=== PATIENT | female | born 1970 | race Caucasian/White ===

== ENCOUNTER 2021-08-08 12:52 | Observation (INO) | payer OTHER, SELFPAY ==
[2021-08-08] VITALS (10 sets, daily range): BP systolic 139–175; BP diastolic 67–90; PULSE 58–116; RESP 14–22; TEMP 35.6–37.2; O2SAT 92–98; BMI 33.5
--- NOTE | ~2021-08-08 | XR_ITS ---
EXAMINATION: XR sinus min 3V EXAM DATE: 08/09/2021 15:32 INDICATION: Sinusitis TECHNIQUE: Frontal, Isabella's, lateral, submentovertex projections of the paranasal sinuses. There is no prior study for comparison. 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 The sinuses are well aerated, no evidence of air-fluid level on the submentovertex projections. Please note that mild mucoperiosteal t hickening can be inapparent by x-ray. IMPRESSION: Unremarkable sinuses. Reviewed, dictated and finalized at location A. DYEING MACHINE TENDER IMPRESSION: Unremarkable sinuses.
--- NOTE | ~2021-08-08 | NM_ITS ---
EXAMINATION: NM zeyad stress w perfusion EXAM DATE: 08/09/2021 15:31 INDICATION: Chest pain. Ischemic chest pain. TECHNIQUE: Rest images were obtained following intravenous administration of 11.7 mCi Tc99m tetrofosm in (Myoview). The patient was infused intravenously with Lexiscan (regadenoson). Then, 33 mCi Tc99m t etrofosmin (Myoview) was administered intravenously, and stress images were obtained. Data was recons tructed into short axis and horizontal and vertical long axis SPECT images. Gated SPECT images were a lso obtained. There is no prior study for comparison. FINDINGS: There is no reversible or fixed perfusion abnormality to suggest ischemia or infarction. Th ere is normal left ventricular wall motion. End diastolic volume: 75 mL. End-systolic volume: 24 mL. Left ventricular ejection fraction: 68%. IMPRESSION: 1. Normal myocardial perfusion at rest and during stress. 2. Left ventricular ejection fraction measuring 68%. Reviewed, dictated and finalized at location A. MANAGER
--- NOTE | ~2021-08-08 | CT_ITS ---
EXAMINATION: CT abdomen pelvis wo con DATE: 08/10/2021 13:11 INDICATION: Upper abdominal pain. Nausea and vomiting. TECHNIQUE: Computed tomography (CT) of the abdomen and pelvis was performed without intravenous contr ast. Automated exposure control and iterative reconstruction technique were employed. The dose-length product was 972.80 mGy-cm. COMPARISON: CT abdomen and pelvis 12/12/2017 FINDINGS: The visualized portions of the lung bases demonstrate mild atelectasis. A calcified right l talita nodule and calcified right hilar lymph nodes are consistent with old granulomatous disease. No pl eural effusion. The heart size is normal. There is a small pericardial effusion. There are coronary a rtery calcifications. There is diffuse hepatic steatosis. The gallbladder is normal. Calcifications i n the spleen are consistent with old granulomatous disease. The pancreas, adrenal glands, and kidneys are normal. There is diverticulosis of the colon without evidence of diverticulitis. There are no di lated loops of bowel. The appendix is normal. There are no pathologically enlarged lymph nodes. There is no free intraperitoneal fluid. There is a chronic compression fracture of T11. There are chronic bilateral L5 pars defects. There is 7 mm anterolisthesis of L5 on S1. There is mild lumbar spondylosi s. IMPRESSION: 1. Small pericardial effusion similar to the prior exam. 2. Diffuse hepatic steatosis. Reviewed, dictated and finalized at location A. KNITTING MACHINE OPERATOR
--- NOTE | ~2021-08-08 | XR_ITS ---
EXAMINATION: XR chest 2V DATE: 08/08/2021 13:25 INDICATION: Acute chest pain TECHNIQUE: PA and lateral views of the chest are obtained. COMPARISON: 06/01/2018 FINDINGS: The lungs are free of acute opacities. There is no pleural effusion or pneumothorax. The ca rdiomediastinal silhouette is normal. There is mild thoracic spondylosis. IMPRESSION: 1. No acute cardiopulmonary abnormality. Reviewed, dictated and finalized at location B. RVISOR PICKING CREW
--- NOTE | ~2021-08-08 | CT_ITS ---
EXAMINATION: CTA chest PE protocol EXAM DATE: 08/08/2021 16:06 INDICATION: Chest pain for one month, intermittent. Cough and congestion. TECHNIQUE: Spiral CTA of the chest (pulmonary arteries) was performed with 100 cc Omnipaque 350 intr avenous contrast injection. Images were acquired during the pulmonary arterial phase. Coronal maxi mum intensity projection 3D-reconstructions were created by the technologist on dedicated workstation . Axial, coronal and sagittal reformatted images were reviewed. The dose-length product (DLP) for t his examination was 450.26 mGy-cm. The exposure was tailored according to patient size (auto mA exp osure control), and iterative reconstruction (ASIR) was used as additional dose reduction technique. There is no prior study for comparison. FINDINGS: Pulmonary arteries are well opacified and without intraluminal filling defects. No thora cic aortic dissection. There is 4 mm right lower lobe nodule axial image 49. There is 5 mm right low er lobe nodule on image 63. Additional 3 mm right lower lobe nodule on image 79. There is mild emphysema. Small pericardial effusion. Tracheobronchial tree is patent. There is no mediastinal, hilar or axillary lymphadenopathy. There is no pneumothorax. Heart normal in size. There is moderate left anterior descending coronary arterial calcification, arterial sclerosis. The re is hepatic steatosis. There is thoracic spondylosis without osteoblastic or osteolytic lesions id entified. IMPRESSION: 1. Small right lower lobe noncalcified nodules likely granulomas but one-year follow-up noncontrast chest CT recommended. 2. Small pericardial effusion. 3. Mild emphysema. 4. Hepatic steatosis. 5. No pulmonary emboli. Reviewed, dictated and finalized at location A. RD KEEPER
--- NOTE | 2021-08-08 12:54 | ECG_ITS ---
Measurements Intervals [place] Rate: 105 P: 17 PA: 142 QRS: 6 QRSD: 84 T: 10 QT: 332 QTc: 440 Interpretive Statements SINUS TACHYCARDIA DIFFUSE ST & T-WAVE ABNORMALITY CONSIDER SUBENDOMYOCARDIAL ISCHEMIA ABNORMAL ECG NO PREVIOUS ECG AVAILABLE FOR COMPARISON Electronically Signed On 08-08-2021 14:22:05 TANK RIVETER by Melchor Walsh M.D.
--- NOTE | 2021-08-08 13:10 | ED.CHESTPAIN ---
HPI - Chest Pain General Chief Complaint: Chest Pain Stated Complaint: chest pain, back pain Time Seen by Provider: 08/08/21 13:10 Source: patient Mode of arrival: ambulatory Limitations: no limitations History of Present Illness HPI narrative: Patient is a 50-year-old female complain of chest pain, midsternal, 8 out of 10, tightness, nonradiating, intermittent, accompanied by shortness of breath started 1 month ago but worse the past few days and that is why she came in. Patient denies any abdominal pain, nausea, vomiting, diaphoresis, fever or chills. Related Data Home Medications Medication Instructions Recorded Confirmed albuterol sulfate 08/08/21 albuterol sulfate INHALATION 08/08/21 atorvastatin 08/08/21 duloxetine mg PO 08/08/21 duloxetine mg PO 08/08/21 losartan 08/08/21 08/08/21 nicotine See Rx Instructions .ROUTE .COMPLEX 08/08/21 omeprazole 08/08/21 trazodone 08/08/21 Allergies Allergy/AdvReac Type Severity Reaction Status Date / Time ibuprofen Allergy Mild Vomiting Verified 08/08/21 13:29 Review of Systems Review of Systems: All systems reviewed & are unremarkable except as noted in HPI and below Constitutional: Constitutional: Denies body ache(s), Denies chills, Denies excessive sweating, Denies fatigue, Denies fever(s), Denies headache(s), Denies lethargy, Denies malaise, Denies weakness and Denies weight loss Eyes: Eyes: Denies blurry vision, Denies change in vision and Denies loss of vision ENT: Denies dizziness, Denies ear discharge, Denies headache(s), Denies lip swelling, Denies epistaxis, Denies nasal congestion, Denies neck pain, Denies throat swelling and Denies tongue swelling Cardiovascular: Cardiovascular: Denies diaphoresis, Denies rapid heart rate, Denies edema, Denies irregular heart rhythm, Denies lightheadedness, Denies palpitations, Denies dyspnea and Denies dyspnea on exertion Respiratory: Respiratory: Denies chest congestion, Denies cough, Denies hemoptysis, Denies dyspnea and Denies dyspnea on exertion Gastrointestinal: Gastrointestinal: Denies abdominal pain, Denies melena, Denies hematochezia, Denies diarrhea, Denies nausea, Denies vomiting and Denies hematemesis Musculoskeletal: Musculoskeletal: Denies abnormal gait, Denies deformity, Denies joint swelling, Denies limited range of motion, Denies neck pain and Denies numbness Neurologic: Denies Abnormal speech present, Denies abnormal gait, Denies confusion, Denies dizziness, Denies headache(s), Denies focal weakness, Denies loss of vision, Denies numbness, Denies Other visual disturbances, Denies Sensory deficit (Neuro) and Denies weakness Psychiatric: Psychiatric: Denies confusion, Denies depression, Denies auditory hallucinations, Denies homicidal ideation and Denies suicidal ideation Endocrine: Endocrine: Denies cold intolerance, Denies excessive sweating, Denies fatigue, Denies heat intolerance and Denies palpitations Hematologic/Lymphatic: Hematologic/Lymphatic: Denies easy bleeding and Denies easy bruising Allergic/Immunologic: Allergic/Immunologic: Denies lip swelling, Denies throat swelling and Denies tongue swelling PMFSH Past Medical History Medical History Abnormal uterine bleeding Anemia Anxiety Arthritis Asthma Back pain Bronchitis COPD (chronic obstructive pulmonary disease) DDD (degenerative disc disease) 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
[2021-08-08 13:19] LABS: Basophils Absolute Auto 0.1 K/mm3 (0.0-0.1); Basophils Percent Auto 0.6 % (0.2-1.2); Eosinophils Absolute Auto 0.1 K/mm3 (0-0.3); Hematocrit 44.4 % (37.0-47.0); Hemoglobin 15.3 g/dL (12.0-15.0); Immature Granulocyte Absolute 0.03 K/mm3 (0.00-0.031); Immature Granulocyte Percent A 0.3 % (0-0.5); Lymphocytes Absolute Auto 3.09 K/mm3 (0.9-3.2); Lymphocytes Percent Auto 26.8 % (18.3-44.2); Mean Corpuscular HGB Conc 34.5 g/dl (32-36); Mean Corpuscular Hemoglobin 29.4 pg (26-34); Mean Corpuscular Volume 85.2 fl (80-100); Mean Platelet Volume 9.8 fl (7.4-10.4); Monocytes Absolute Auto 0.6 K/mm3 (0.1-0.6); Monocytes Percent Auto 4.8 % (2.6-8.5); Neutrophils Absolute Auto 7.7 K/mm3 (1.3-6.7); Neutrophils Percent Auto 66.5 % (45.5-73.1); Platelet Count Result 416 k/mm3 (150-375); Red Blood Count 5.21 M/mm3 (4.2-5.4); Red Cell Distribution Width 13.8 % (11.5-14.5); White Blood Count 11.6 K/mm3 (4.5-10.0)
[2021-08-08 13:32] LABS: Alanine Aminotransferase 12 U/L (4-35); Albumin Level 4.1 g/dL (3.5-5.1); Alkaline Phosphatase 66 U/L (38-126); Anion Gap 9 mmol/L (8-16); Aspartate Amino Transferase 23 U/L (14-36); Bilirubin,Total 0.6 mg/dL (0.2-1.3); Blood Urea Nitrogen 4 mg/dL (7-17); Calcium 8.6 mg/dL (8.4-10.2); Carbon Dioxide 28 mmol/L (22-30); Chloride 100 mmol/L (98-107); Estimated CRCL calculation 91 ml/min; Estimated Glomerular Filt Rate > 60; Glucose 121 mg/dL (65-110); Lipase 80 U/L (23-300); Potassium 2.6 mmol/L (3.4-5.0); Sodium 137 mmol/L (137-145)
[2021-08-08 13:35] LABS: Partial Thromboplastin Time 26.7 SECONDS (22.3-36.8)
[2021-08-08 13:36] LABS: Troponin I < 0.012 ng/mL (0.000-0.034)
[2021-08-08 13:40] LABS: Prothrombin Time 12.4 Seconds (11.1-14.7)
[2021-08-08] MEDS: POTASSIUM CHLORIDE 20 MEQ PACKET (FOR LIQUID) 40 MEQ PO ×3 (13:50→23:11)
[2021-08-08 14:05] LABS: D Dimer 0.33 ug/mL (<0.48)
[2021-08-08] MEDS: NITROGLYCERIN OINTMENT 1 INCH DOSE TRANSDERM (15:46)
[2021-08-08 16:20] LABS: Troponin I < 0.012 ng/mL (0.000-0.034)
[2021-08-08 16:35] LABS: SARS-CoV-2 RNA PCR Negative
--- NOTE | 2021-08-08 17:04 | ADMGEN ---
This patient, Purvi Villarreal, was admitted to IMU Room 206-01. Patient/family oriented to hospital policies and general routines including ID bracelet, bed and alarms, visiting hours, pain management, procedures, bathroom and other care routines, personal items, smoking policy, room service/diet, and visiting hours. Information on how to activate the Rapid Response Team has been discussed. Patient/Family are encouraged to report perceived risks to care and to ask questions if they do not understand what they are told or what they should do.
[2021-08-08 19:34] LABS: Troponin I < 0.012 ng/mL (0.000-0.034)
--- NOTE | 2021-08-08 20:01 | PM.IMHP ---
H&P: HPI History of Present Illness Date/Time: Patient was placed observation status for expected length of stay less than 23 hours for management, will plan to re-evaluate tomorrow for improvement. 08/08/21 20:01 Chief Complaint: Chest pain Narrative: Mr. Villarreal is a 48-year-old female who presented to the emergency room with complaints of chest discomfort for the last month. Patient has a known history of COPD, hypertension, and dyslipidemia. Patient states over the last month she has been having chest pressure in her mid sternal area that radiates straight through to her back and she complains of aching in her back. Patient states over the last 2 days the chest discomfort has worsened. Patient states that taking a deep breath makes the pain worse, and laying down makes the pain better. Patient states she has had nausea and vomiting over the last few days. Patient states that she recently was diagnosed with a sinus infection and upper respiratory infection and was given a Z-Herbert and she states there was no resolution of her infection so she was given a 2nd Z-Herbert. Patient states she quit smoking today after smoking approximately 2 packs of cigarettes for 20 years. Patient denies any lightheadedness, dizziness, syncopal, or near syncopal episodes. Patient states she has been taking all medications at home without any difficulty. Upon evaluation in emergency room patient was noted to have an initial troponin that was negative of less than 0.012. Patient was also noted to have hypokalemia with a potassium of 2.6. Patient's EKG did show diffuse ST depression. Patient's heart score came back at a 5 which is a moderate risk. Review of Systems Review of Systems: A 12 point review of systems was completed patient all pertinent positive and negative per HPI the remainder are unremarkable. 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 Depression Fractures lt 3rd finger, rt great toe GERD (gastroesophageal reflux disease) Hemorrhoids Hypertension Irritable bowel Osteoporosis Pneumonia Shingles Ulcer UTI (urinary tract infection) Surgical History Surgical History H/O: hysterectomy History of bunionectomy Family History Family History (Updated 08/08/21 @ 17:16 by Nando Be RN) Mother Breast cancer Father Hypertension Sibling Cardiomyopathy Sibling Brain aneurysm Social History Social History Smoking packs per day: 2 Smoking cigarettes per day: 40.0 Years smoked: 20 Smoking pack-years: 40.00 Smoking status: Current every day smoker Tobacco type: cigarettes Alcohol intake: never Substance use: never Spiritual care concerns: No Meds Home Medications and Allergies Home Medications Medication Instructions Recorded Confirmed Type albuterol sulfate 2 puff INHALATION PRN PRN 08/08/21 08/08/21 History albuterol sulfate 2.5 mg INHALATION TID PRN 08/08/21 08/08/21 History atorvastatin 20 mg PO DAILY 08/08/21 08/08/21 History duloxetine 30 mg PO DAILY 08/08/21 08/08/21 History duloxetine 60 mg PO DAILY 08/08/21 08/08/21 History losartan 100 mg PO DAILY 08/08/21 08/08/21 History nicotine 1 patch TRANSDERMAL DAILY 08/08/21 08/08/21 History omeprazole 40 mg PO BID 08/08/21 08/08/21 History trazodone 300 mg PO HS 08/08/21 08/08/21 History Allergies Allergy/AdvReac Type Severity Reaction Status Date / Time ibuprofen Allergy Mild Vomiting Verified 08/08/21 17:17 Vital Signs Vital Signs - 24 hr 08/08/21 12:57 08/08/21 13:29 08/08/21 13:50 Temperature 36.5 C 37.2 C Pulse Rate 116 H 91 97 Respiratory Rate 14 16 Blood Pressure 144/84 H 142/90 H Pul
[2021-08-08] MEDS: ACETAMINOPHEN 325 MG TABLET 650 MG PO (21:07)
[2021-08-08] MEDS: traZODone HCL 50 MG TABLET 300 MG PO (21:08)
[2021-08-08] MEDS: PANTOPRAZOLE 40 MG TABLET PO (21:08)
[2021-08-08] MEDS: ONDANSETRON INJ 4 MG/2 ML VIAL IV PUSH (22:01)
[2021-08-08] MEDS: POTASSIUM CHLORIDE INJ 40 MEQ in SODIUM CHLORIDE 0.9% IV 500 ML 130 MEQ IVPB (23:12)
[2021-08-09] VITALS (16 sets, daily range): BP systolic 115–154; BP diastolic 50–90; PULSE 59–101; RESP 16–18; TEMP 35.1–36.4; O2SAT 92–98
[2021-08-09 04:59] LABS: Basophils Absolute Auto 0.1 K/mm3 (0.0-0.1); Basophils Percent Auto 0.9 % (0.2-1.2); Eosinophils Absolute Auto 0.2 K/mm3 (0-0.3); Eosinophils Percent Auto 3.2 % (0-4.4); Hemoglobin 13.2 g/dL (12.0-15.0); Immature Granulocyte Absolute 0.01 K/mm3 (0.00-0.031); Immature Granulocyte Percent A 0.2 % (0-0.5); Lymphocytes Absolute Auto 3.11 K/mm3 (0.9-3.2); Mean Corpuscular HGB Conc 32.2 g/dl (32-36); Mean Corpuscular Hemoglobin 28.9 pg (26-34); Mean Corpuscular Volume 89.7 fl (80-100); Mean Platelet Volume 9.9 fl (7.4-10.4); Monocytes Absolute Auto 0.4 K/mm3 (0.1-0.6); Monocytes Percent Auto 7.2 % (2.6-8.5); Neutrophils Absolute Auto 2.1 K/mm3 (1.3-6.7); Neutrophils Percent Auto 35.5 % (45.5-73.1); Platelet Count Result 340 k/mm3 (150-375); Red Blood Count 4.57 M/mm3 (4.2-5.4); Red Cell Distribution Width 13.9 % (11.5-14.5); White Blood Count 5.9 K/mm3 (4.5-10.0)
[2021-08-09 05:09] LABS: Anion Gap 4 mmol/L (8-16); Blood Urea Nitrogen 3 mg/dL (7-17); Calcium 7.8 mg/dL (8.4-10.2); Carbon Dioxide 29 mmol/L (22-30); Chloride 106 mmol/L (98-107); Estimated CRCL calculation 81 ml/min; Estimated Glomerular Filt Rate > 60; Glucose 106 mg/dL (65-110); Potassium 3.4 mmol/L (3.4-5.0); Sodium 139 mmol/L (137-145)
[2021-08-09] MEDS: LOSARTAN POTASSIUM 100 MG TABLET PO (08:36)
[2021-08-09] MEDS: DULoxetine HCL 60 MG CAPSULE.DR PO (08:36)
[2021-08-09] MEDS: DULoxetine HCL 30 MG CAPSULE.DR PO (08:36)
[2021-08-09] MEDS: NICOTINE (*PBKC) 21 MG PATCH 1 PATCH TRANSDERM (08:36)
[2021-08-09] MEDS: ATORVASTATIN 20 MG TABLET PO (08:36)
[2021-08-09] MEDS: PANTOPRAZOLE 40 MG TABLET PO ×2 (08:36→20:11)
[2021-08-09] MEDS: ENOXAPARIN 40 MG/0.4 ML SYRINGE SUB-Q (08:37)
[2021-08-09] MEDS: ACETAMINOPHEN 325 MG TABLET 650 MG PO ×2 (08:38→15:38)
--- NOTE | 2021-08-09 10:05 | ECHO_ITS ---
Patient Info Name: Purvi Villarreal Age: 50 years : 1970 Gender: Female Ht: 62 in Wt: 182 lbs BSA: 1.94 m2 HR: 57 bpm BP: 154 / 70 mmHg Heart Rhythm: Sinus Rhythm Technical Quality: Fair Exam Date: 08/09/2021 11:27 AM Exam Location: [facility] Card Pulmonary Patient Status: Inpatient Admit Date: 08/08/2021 Staff Ordering Physician: Melchor Walsh MD Asphalt Paving Machine Operator: Kelsey Cartagena RDCS Attending Provider: Gopi Sanches MD Referring Physician: Jillian YOUSSEF; Exam Type: CA echo doppler color flow Study Info Indications - cp Complete two-dimensional, color flow and Doppler transthoracic echocardiogram is performed. Summary 1. Complete two-dimensional, color flow and Doppler transthoracic echocardiogram is performed. 2. Left ventricular chamber dimension is normal. 3. Left ventricular systolic function is normal, estimated at 65-70%. 4. There is mildly increased left ventricular wall thickness. 5. The left ventricular diastolic function is grade II diastolic dysfunction. 6. There is no aortic valve stenosis. 7. There is mild aortic valve regurgitation. 8. There is trace tricuspid valve regurgitation. 9. No pulmonary hypertension, estimated pulmonary arterial systolic pressure is 23 mmHg. 10. There is a small circumferential pericardial effusion with fibrinous material within the pericardial space. Left Ventricle Left ventricular chamber dimension is normal. Left ventricular systolic function is normal, estimated at 65-70%. There is mildly increased left ventricular wall thickness. The left ventricular diastolic function is grade II diastolic dysfunction. Right Ventricle Right ventricular chamber dimension is normal. Right ventricular systolic function is normal. Left Atria Left atrial chamber dimension is normal. Right Atria Right atrial chamber dimension is normal. Aortic Valve The aortic valve is trileaflet. There is no aortic valve stenosis. There is mild aortic valve regurgitation. Pulmonic Valve The pulmonic valve is not well visualized. Mitral Valve The mitral valve has thickened leaflets. There is trace mitral valve regurgitation. Tricuspid Valve The tricuspid valve leaflets are normal. There is trace tricuspid valve regurgitation. No pulmonary hypertension, estimated pulmonary arterial systolic pressure is 23 mmHg. Pericardium/Pleural The pericardium appears normal. There is a small circumferential pericardial effusion with fibrinous material within the pericardial space. Inferior Vena Cava Normal inferior vena cava with >50% collapse upon inspiration consistent with normal right atrial pressure, 5 mmHg. Aorta The aortic root size at the sinus of Valsalva is normal. There is mild aortic atherosclerosis. Left Ventricular Outflow Tract Name Value Normal LVOT 2D LVOT Diameter 2.0 cm LVOT Doppler LVOT Peak Gradient 4 mmHg LVOT Mean Gradient 2 mmHg LVOT VTI 21 cm LVOT VTI/AV VTI Ratio 0.6 LVOT Stroke Volume
--- NOTE | 2021-08-09 10:31 | ECG_ITS ---
Measurements Intervals [place] Rate: 60 P: 48 [place]: 160 QRS: 34 QRSD: 74 T: 43 QT: 415 QTc: 415 Interpretive Statements SINUS RHYTHM NONSPECIFIC ST-WAVE ABNORMALITY BASELINE ARTIFACT BORDERLINE ECG COMPARED TO ECG 08/08/2021 12:57:55 ST ABNORMALITY SLIGHTLY IMPROVED Electronically Signed On 08-09-2021 15:16:12 VIRTUALIZATION ARCHITECT by Melchor Walsh M.D.
--- NOTE | 2021-08-09 10:32 | PM.CNCAR ---
Assessment and Plan Assessment and plan (1) Chest pain: Qualifiers: Chest pain type: unspecified Qualified Code(s): R07.9 - Chest pain, unspecified Code(s): R07.9 - Chest pain, unspecified Status: Acute Assessment and Plan: Patient reports a 1 month history of constant central chest achiness and tightness radiating to her back, waxing and waning in intensity for least 1 month which began after sinus infection with postnasal drip and frequent coughing. Chest pain is atypical, reproducible chest pain to palpation worse with deep breathing, coughing and improved lying still. Ruled out for myocardial infarction with negative serial cardiac enzymes. No history of known CAD. Risk factors include hypertension, tobacco abuse, hyperlipidemia. Clinically, chest pain most consistent with musculoskeletal etiology. Patient reports intolerance to NSAIDs. Will obtain 2D echocardiogram to assess pericardium, LV size/function, wall motion abnormalities, valve pathology and pulmonary pressures. Is significant abnormality identified further workup if clinically appropriate. I would like to clarify pericardial pathology by echocardiogram as soon as possible prior to subjecting patient to stress test. Chest pain is improved with Cymbalta and Tylenol. Patient thinks perhaps nitroglycerin paste helped as well but symptoms are largely unchanged and she admits. However, CT angiogram of the chest also reveals calcification coronary arteries. -Tylenol for pain. -Lexiscan nuclear stress test will be pursued later today if possible if echocardiogram without significant pericardial pathology. Lexiscan may be pursued as outpatient as well depending on patient's clinical course. Keep patient NPO for now. -Repeat 12 lead EKG. Recommendation to follow. (2) Abnormal EKG: Code(s): R94.31 - Abnormal electrocardiogram [ECG] [EKG] Status: Acute Assessment and Plan: Diffuse mild ST depressions fairly similar to prior EKGs dating back to 2019. (3) URI (upper respiratory infection): Qualifiers: URI type: unspecified viral URI Qualified Code(s): J06.9 - Acute upper respiratory infection, unspecified Code(s): J06.9 - Acute upper respiratory infection, unspecified Status: Acute Assessment and Plan: Per primary service. Bronchodilator therapy, PPI, antibiotics as warranted. CT angio of the chest negative for PE, aortic dissection, pneumothorax (4) Acute hypokalemia: Code(s): E87.6 - Hypokalemia Status: Acute Assessment and Plan: Severe hypokalemia initially 2.6 now replete to 3.4. Give additional 40 mEq p.o.. Patient admits to frequent loose stools over the past couple weeks which may be contributing. (5) Hypertension: Qualifiers: Hypertension type: primary hypertension Qualified Code(s): I10 - Essential (primary) hypertension Code(s): I10 - Essential (primary) hypertension Status: Acute Assessment and Plan: BP not ideally controlled but fair. Continue home antihypertensives. (6) Tobacco abuse: Code(s): Z72.0 - Tobacco use Status: Acute Assessment and Plan: Smoking cessation counseling performed. Nicotine patch. History of Present Illness History of Present Illness Consult date/time: Date of service: 08/09/21 10:32 Cardiology consultation at the request of Dr. Gomez for the emergency department for our opinion regarding complaints of chest pain. Requesting physician: James Gomez MD Consult reason: chest pain Reason For Visit: Chest pain, hypokalemia Narrative: Patient is a pleasant 50 year old female with past medical history significant for tobacco abuse 2 packs daily for the past 20 years, COPD, hypertension, hyperlipidemia who presents to the emergency department complaints of over 1 month constant chest pain described as an achy and tightness sensation in the center lower chest radiating to h
--- NOTE | 2021-08-09 11:49 | EST_ITS ---
Patient Info Name: Purvi Villarreal Age: 50 years : 1970 Gender: Female Ht: 62 in Wt: 185 lbs BSA: 1.95 m2 HR: 74 bpm BP: 159 / 83 mmHg Heart Rhythm: Sinus Rhythm Exam Date: 08/09/2021 2:32 PM Exam Location: [facility] Stress Patient Status: Inpatient Admit Date: 08/08/2021 Staff Ordering Physician: Boris Chan Attending Provider: Gopi Sanches MD Exercise Technologist: Analisa Branch CT Nurse: BORIS CHAN Exam Type: CA stress zeyad w NM Study Info Indications R07.9 - Chest pain, unspecified A regadenoson stress test was performed. Summary 1. With Lexiscan administration, 1 mm or greater horizontal or downsloping ST segment depression in leads II, III, aVF, V3-V6 consistent with myocardial ischemia. 2. No arrhythmias were observed during the examination. 3. Please correlate with nuclear medicine images, reported separately. 4. Chest discomfort with stress test, probably non-cardiac. Protocol: Lexiscan Stress ECG Details Stage: REST Duration (min): 1 min : 2 sec HR (bpm): 73 SBP (mmHg): 159 DBP (mmHg): 83 Stage: REST Duration (min): 6 min : 38 sec HR (bpm): 78 SBP (mmHg): 159 DBP (mmHg): 83 Stage: STAGE 1 Duration (min): 0 min : 59 sec HR (bpm): 116 SBP (mmHg): 159 DBP (mmHg): 99 Stage: RECOVERY Duration (min): 1 min : 0 sec HR (bpm): 129 SBP (mmHg): 159 DBP (mmHg): 99 Stage: RECOVERY Duration (min): 2 min : 0 sec HR (bpm): 117 SBP (mmHg): 159 DBP (mmHg): 99 Stage: RECOVERY Duration (min): 3 min : 0 sec HR (bpm): 102 SBP (mmHg): 175 DBP (mmHg): 95 Stage: RECOVERY Duration (min): 4 min : 0 sec HR (bpm): 100 SBP (mmHg): 175 DBP (mmHg): 95 Stage: RECOVERY Duration (min): 4 min : 53 sec HR (bpm): 90 SBP (mmHg): 165 DBP (mmHg): 92 Rest HR: 78 bpm Peak HR: 129 bpm Rest Sys BP: 159 mmHg Peak Sys BP: 175 mmHg Max Pred HR: 168 bpm % Max Pred HR: 77 % Target HR: 143 bpm Max RPP: 22,575 bpm*mmHg Termination Reason: Completed protocol Cardiac Symptoms: Chest pain, Shortness of breath Total Time: 1 min : 0 sec Rest Bunyd BP: 83 mmHg Peak Bundy BP: 95 mmHg Total Dose: 0.4 mg Resting ECG Normal sinus rhythm. Nonspecific ST and T-wave abnormality. Stress ECG With Lexiscan administration, 1 mm or greater horizontal or downsloping ST segment depression in leads II, III, aVF, V3-V6 consistent with myocardial ischemia. Arrhythmias No arrhythmias were observed during the examination. Report Signatures
--- NOTE | 2021-08-09 11:51 | PM.IMPN ---
Progress Note: A&P Assessment and Plan (1) Chest pain: Qualifiers: Chest pain type: unspecified Qualified Code(s): R07.9 - Chest pain, unspecified Code(s): R07.9 - Chest pain, unspecified Status: Acute Assessment and Plan: Heart score of 5 with moderate risk however clinical history not suggestive of cardiac chest pain EKG does show ST-T depressions in the lateral leads noted. This morning EKG with resolution of those depressions noted Severely hypokalemic on admission Troponin was negative on arrival and serial troponins were negative. Cardiology has been consulted is planning for echocardiogram followed by a stress test No prior history of coronary artery disease Chest x-ray with no acute cardiopulmonary disease CTA negative for PE. Small right lower lobe noncalcified nodules likely granulomas but one-year follow-up noncontrast chest CT recommended. (2) Acute hypokalemia: Code(s): E87.6 - Hypokalemia Status: Acute Assessment and Plan: Replaced. Check magnesium (3) Tobacco abuse: Code(s): Z72.0 - Tobacco use Status: Acute Assessment and Plan: Patient states she did quit smoking today after smoking approximately 2 packs of cigarettes a day for last [address] a nicotine patch on patient and continue to encourage smoking cessation. (4) Lung nodule: Code(s): R91.1 - Solitary pulmonary nodule Status: Acute Assessment and Plan: Small right lower lobe noncalcified nodule likely granuloma. Need follow-up noncontrast chest CT in 1 year. (5) Hypertension: Qualifiers: Hypertension type: primary hypertension Qualified Code(s): I10 - Essential (primary) hypertension Code(s): I10 - Essential (primary) hypertension Status: Acute Assessment and Plan: Not on any medications at home. Continue to monitor Will follow the trend. May need to add antihypertensive (6) Acute rhinosinusitis: Code(s): J01.90 - Acute sinusitis, unspecified Status: Acute Assessment and Plan: With persistent symptoms with postnasal drip. Received 2 rounds of antibiotics. Add Flonase nasal spray Does have underlying history of asthma but not any maintenance steroid inhaler. Start Symbicort 2 puffs twice daily Will also check sinus x-rays if persistent sinus fluid may and/or prednisone course Subjective Date/time seen: 08/09/21 11:51 Interval history: HPI: Mr. Villarreal is a 48-year-old female who presented to the emergency room with complaints of chest discomfort for the last month. Patient has a known history of COPD, hypertension, and dyslipidemia. Patient states over the last month she has been having chest pressure in her mid sternal area that radiates straight through to her back and she complains of aching in her back. Patient states over the last 2 days the chest discomfort has worsened. Patient states that taking a deep breath makes the pain worse, and laying down makes the pain better. Patient states she has had nausea and vomiting over the last few days. Patient states that she recently was diagnosed with a sinus infection and upper respiratory infection and was given a Z-Herbert and she states there was no resolution of her infection so she was given a 2nd Z-Herbert. Patient states she quit smoking today after smoking approximately 2 packs of cigarettes for 20 years. Patient denies any lightheadedness, dizziness, syncopal, or near syncopal episodes. Patient states she has been taking all medications at home without any difficulty. Upon evaluation in emergency room patient was noted to have an initial troponin that was negative of less than 0.012. Patient was also noted to have hypokalemia with a potassium of 2.6. Patient's EKG did show diffuse ST depression. Patient's heart score came back at a 5 which is a moderate risk. 08/09/2021 she reports her chest pain is diffusely present in her lower chest. She also f
[2021-08-09 12:10] LABS: Magnesium 1.1 mg/dL (1.6-2.3)
[2021-08-09] MEDS: MAGNESIUM SULF 2 GM/WATER 50ML 2 GM/50 ML BAG IVPB (15:41)
[2021-08-09] MEDS: POTASSIUM CHLORIDE 20 MEQ TABLET 40 MEQ PO (15:42)
[2021-08-09] MEDS: FLUTICASONE PROPIONATE 0.05% NA SPR 16 GM BTL (*BKC) 1 SPRAY NASAL (20:11)
[2021-08-09] MEDS: traZODone HCL 50 MG TABLET 300 MG PO (20:11)
[2021-08-09] MEDS: FLUTICASONE/SALMETEROL 115-21 MCG INHALER 1 PUFF 2 PUFF INHALATION (20:25)
[2021-08-10] VITALS (10 sets, daily range): BP systolic 115–143; BP diastolic 54–95; PULSE 62–84; RESP 16–18; TEMP 36.2–36.6; O2SAT 95–97
[2021-08-10] MEDS: FLUTICASONE/SALMETEROL 115-21 MCG INHALER 1 PUFF 2 PUFF INHALATION ×2 (08:01→20:00)
[2021-08-10] MEDS: ENOXAPARIN 40 MG/0.4 ML SYRINGE SUB-Q (08:27)
[2021-08-10] MEDS: PANTOPRAZOLE 40 MG TABLET PO ×2 (08:28→20:24)
[2021-08-10] MEDS: LOSARTAN POTASSIUM 100 MG TABLET PO (08:28)
[2021-08-10] MEDS: DULoxetine HCL 30 MG CAPSULE.DR PO (08:28)
[2021-08-10] MEDS: DULoxetine HCL 60 MG CAPSULE.DR PO (08:28)
[2021-08-10] MEDS: ATORVASTATIN 20 MG TABLET PO (08:28)
[2021-08-10] MEDS: NICOTINE (*PBKC) 21 MG PATCH 1 PATCH TRANSDERM (08:29)
--- NOTE | 2021-08-10 10:44 | PM.IMPN ---
Progress Note: A&P Assessment and Plan (1) Chest pain: Qualifiers: Chest pain type: unspecified Qualified Code(s): R07.9 - Chest pain, unspecified Code(s): R07.9 - Chest pain, unspecified Status: Acute Assessment and Plan: Heart score of 5 with moderate risk however clinical history not suggestive of cardiac chest pain EKG does show ST-T depressions in the lateral leads noted. This morning EKG with resolution of those depressions noted Severely hypokalemic on admission Troponin was negative on arrival and serial troponins were negative. Cardiology has been consulted No prior history of coronary artery disease Chest x-ray with no acute cardiopulmonary disease CTA negative for PE. Small right lower lobe noncalcified nodules likely granulomas but one-year follow-up noncontrast chest CT recommended. ECHO: EF 65-70% mildly increased left ventricular wall thickness grade 2 diastolic dysfunction no aortic valve stenosis mild aortic valve regurgitation trace tricuspid valve regurgitation no pulmonary hypertension small circumferential pericardial effusion with fibrinous material within the pericardial space Stress test 08/10/2019 to no reversible or fixed perfusion abnormality to suggest ischemia or infarction. Normal left ventricular wall motion. Ejection fraction 68% (2) Acute hypokalemia: Code(s): E87.6 - Hypokalemia Status: Acute Assessment and Plan: Replaced. magnesium low which was replaced recheck again and monitor (3) Tobacco abuse: Code(s): Z72.0 - Tobacco use Status: Acute Assessment and Plan: Patient states she did quit smoking today after smoking approximately 2 packs of cigarettes a day for last [address] a nicotine patch on patient and continue to encourage smoking cessation. (4) Lung nodule: Code(s): R91.1 - Solitary pulmonary nodule Status: Acute Assessment and Plan: Small right lower lobe noncalcified nodule likely granuloma. Need follow-up noncontrast chest CT in 1 year. (5) Hypertension: Qualifiers: Hypertension type: primary hypertension Qualified Code(s): I10 - Essential (primary) hypertension Code(s): I10 - Essential (primary) hypertension Status: Acute Assessment and Plan: Not on any medications at home. Continue to monitor Will follow the trend. May need to add antihypertensive (6) Acute rhinosinusitis: Code(s): J01.90 - Acute sinusitis, unspecified Status: Acute Assessment and Plan: With persistent symptoms with postnasal drip. Received 2 rounds of antibiotics. Add Flonase nasal spray Does have underlying history of asthma but not any maintenance steroid inhaler. Start Symbicort 2 puffs twice daily x-rays sinus negative for sinusitis (7) Pericardial effusion: Code(s): I31.3 - Pericardial effusion (noninflammatory) Status: Acute Assessment and Plan: Small pericardial effusion. Could be from recent likely viral sinusitis. Symptomatic management (8) Coronary artery calcification: Code(s): I25.10 - Atherosclerotic heart disease of [place] coronary artery without angina pectoris; I25.84 - Coronary atherosclerosis due to calcified coronary lesion Status: Acute Assessment and Plan: CT evidence. Stress test negative. Aspirin 81 and atorvastatin (9) Abdominal pain: Code(s): R10.9 - Unspecified abdominal pain Status: Acute Assessment and Plan: Still persistent pain. Associated with nausea. No diarrhea reported. Will further evaluate with CT abdomen and pelvis without contrast. Subjective Date/time seen: 08/10/21 10:44 Interval history: HPI: Mr. Villarreal is a 48-year-old female who presented to the emergency room with complaints of chest discomfort for the last month. Patient has a known history of COPD, hypertension, and dyslipidemia. Patient states over the last month she has been having christine
--- NOTE | 2021-08-10 11:07 | PM.PNCARD ---
Progress Note: A&P Assessment and Plan (1) Chest pain: Qualifiers: Chest pain type: unspecified Qualified Code(s): R07.9 - Chest pain, unspecified Code(s): R07.9 - Chest pain, unspecified Status: Acute Assessment and Plan: Appears to be chest wall pain. Treat with Tylenol or Aleve p.r.n. (patient says she has tolerated Aleve in the past). OK for discharge from my point of view. (2) Coronary artery calcification: Code(s): I25.10 - Atherosclerotic heart disease of [place] coronary artery without angina pectoris; I25.84 - Coronary atherosclerosis due to calcified coronary lesion Status: Acute Assessment and Plan: CT scan shows moderate coronary calcifications so she does have early CAD even though her stress test did not show any flow-limiting lesions. I recommend continuing atorvastatin and add aspirin 81 mg daily. Continue primary prevention (3) Acute hypokalemia: Code(s): E87.6 - Hypokalemia Status: Acute Assessment and Plan: Improved, may be related to the patient's nausea and vomiting as well as omeprazole. (4) Hypermagnesemia: Code(s): E83.41 - Hypermagnesemia Status: Acute Assessment and Plan: May be related to the patient's nausea and vomiting as well as the omeprazole (5) Abnormal EKG: Code(s): R94.31 - Abnormal electrocardiogram [ECG] [EKG] Status: Acute Assessment and Plan: EKG changes have resolved. May have been secondary to electrolyte imbalance. Troponins all negative. Lexiscan does not suggest flow limiting CAD. (6) Pericardial effusion: Code(s): I31.3 - Pericardial effusion (noninflammatory) Status: Acute Assessment and Plan: Does have a small pericardial effusion on CT scan and echo. However her symptoms are not entirely consistent with pericarditis, she does not have a rub, and her EKG changes are not consistent with pericarditis. No history of connective tissue disease, thyroid disease or malignancy. No viral infection other than her sinusitis. Would not treat at this time since I doubt this is acute pericarditis, and tx (w/ NSAIA or colchicine) is likely to cause more GI sx. (7) Nausea: Code(s): R11.0 - Nausea Status: Acute Assessment and Plan: Patient thinks this is due to her antibiotics. (8) Hypertension: Qualifiers: Hypertension type: primary hypertension Qualified Code(s): I10 - Essential (primary) hypertension Code(s): I10 - Essential (primary) hypertension Status: Acute Assessment and Plan: Blood pressure running somewhat high, follow-up with her primary care doctor. (9) Tobacco abuse: Code(s): Z72.0 - Tobacco use Status: Acute Assessment and Plan: Patient has quit smoking. Reviewed CT scan finding of nodules and recommendation for follow-up to rule out growth/cancer. Subjective Date/time seen: 08/10/21 11:07 Interval history: Atypical chest pain Date of service 08/10/2021: Patient relates that she had nausea and vomiting prior to admission probably secondary to antibiotics which may have strained her chest. Still has some nausea and feels ?blah. ? Chest still feels heavy, worse with inspiration and coughing, nonpositional. Review of Systems Constitutional: Constitutional: Reports lethargy Eyes: Eyes: Reports no additional eye complaints ENT: Denies nasal congestion Cardiovascular: Cardiovascular: Reports chest pain, Denies leg edema and Denies palpitations Respiratory: Respiratory: Denies dyspnea and Denies dyspnea on exertion Gastrointestinal: Gastrointestinal: Reports bloating and Reports nausea Comments: History of GERD, omeprazole just increased from 20 mg b.i.d. to 40 mg b.i.d. Genitourinary: Genitourinary: Denies hematuria Musculoskeletal: Musculoskeletal: Reports no additional musculoskeletal complaints Integumentary/Breasts: Skin/Breast: Denies rash Neurologic
--- NOTE | 2021-08-10 11:08 | PC.NURSE ---
SBAR faxed to receiving unit at 1104. Patient to be moved to room 348.
--- NOTE | 2021-08-10 11:40 | PC.NURSE ---
Report given to ELÍAS Palm at 1136. All questions answered and plan of care reviewed. Patient to go to 3 medical room 348.
[2021-08-10 12:29] LABS: Basophils Absolute Auto 0.1 K/mm3 (0.0-0.1); Basophils Percent Auto 0.5 % (0.2-1.2); Eosinophils Absolute Auto 0.1 K/mm3 (0-0.3); Hematocrit 41.5 % (37.0-47.0); Hemoglobin 13.6 g/dL (12.0-15.0); Immature Granulocyte Absolute 0.02 K/mm3 (0.00-0.031); Immature Granulocyte Percent A 0.2 % (0-0.5); Lymphocytes Absolute Auto 2.32 K/mm3 (0.9-3.2); Lymphocytes Percent Auto 23.6 % (18.3-44.2); Mean Corpuscular HGB Conc 32.8 g/dl (32-36); Mean Corpuscular Hemoglobin 29.1 pg (26-34); Mean Corpuscular Volume 88.7 fl (80-100); Mean Platelet Volume 9.9 fl (7.4-10.4); Monocytes Absolute Auto 0.5 K/mm3 (0.1-0.6); Monocytes Percent Auto 4.6 % (2.6-8.5); Neutrophils Absolute Auto 6.9 K/mm3 (1.3-6.7); Neutrophils Percent Auto 70.1 % (45.5-73.1); Platelet Count Result 345 k/mm3 (150-375); Red Blood Count 4.68 M/mm3 (4.2-5.4); Red Cell Distribution Width 14.1 % (11.5-14.5); White Blood Count 9.9 K/mm3 (4.5-10.0)
[2021-08-10 12:37] LABS: Alanine Aminotransferase 11 U/L (4-35); Albumin Level 3.5 g/dL (3.5-5.1); Alkaline Phosphatase 60 U/L (38-126); Anion Gap 3 mmol/L (8-16); Aspartate Amino Transferase 19 U/L (14-36); Bilirubin,Total 0.1 mg/dL (0.2-1.3); Blood Urea Nitrogen 5 mg/dL (7-17); Calcium 8.9 mg/dL (8.4-10.2); Carbon Dioxide 29 mmol/L (22-30); Chloride 103 mmol/L (98-107); Estimated CRCL calculation 94 ml/min; Estimated Glomerular Filt Rate > 60; Glucose 111 mg/dL (65-110); Magnesium 1.4 mg/dL (1.6-2.3); Potassium 3.3 mmol/L (3.4-5.0); Sodium 135 mmol/L (137-145)
--- NOTE | 2021-08-10 12:45 | PC.NURSE ---
This patient, Purvi Villarreal, was received from IMU on 08/10/21 at 1215. Patient/family oriented to unit policies and routines. Report received from ELAÍS Márquez.
[2021-08-10] MEDS: POTASSIUM CHLORIDE 20 MEQ TABLET 40 MEQ PO (14:11)
[2021-08-10] MEDS: MAGNESIUM SULF 2 GM/WATER 50ML 2 GM/50 ML BAG IVPB (14:11)
[2021-08-10] MEDS: ACETAMINOPHEN 325 MG TABLET 650 MG PO ×2 (15:15→21:23)
[2021-08-10] MEDS: traZODone HCL 50 MG TABLET 300 MG PO (20:24)
[2021-08-10] MEDS: FLUTICASONE PROPIONATE 0.05% NA SPR 16 GM BTL (*BKC) 1 SPRAY NASAL (20:24)
--- NOTE | 2021-08-11 03:24 | PC.NURSE ---
Daylight Savings Time For Daylight Savings Time Ending in the Fall - Clocks are moved back. For Daylight Savings Time Beginning in the Spring - Clocks are moved ahead. For [facility], the time of change occurs at 0200 hrs. Time is taken from the sql server bi developer. This entry on the patient's chart recognizes the change in time reflected during documentation. Example: 2 entries for vital signs may be charted for 0200 hrs.
[2021-08-11 05:57] LABS: Basophils Absolute Auto 0.1 K/mm3 (0.0-0.1); Basophils Percent Auto 0.6 % (0.2-1.2); Eosinophils Absolute Auto 0.2 K/mm3 (0-0.3); Eosinophils Percent Auto 2.5 % (0-4.4); Hematocrit 38.6 % (37.0-47.0); Hemoglobin 12.8 g/dL (12.0-15.0); Immature Granulocyte Absolute 0.02 K/mm3 (0.00-0.031); Immature Granulocyte Percent A 0.3 % (0-0.5); Lymphocytes Absolute Auto 2.66 K/mm3 (0.9-3.2); Lymphocytes Percent Auto 33.5 % (18.3-44.2); Mean Corpuscular HGB Conc 33.2 g/dl (32-36); Mean Corpuscular Hemoglobin 29.2 pg (26-34); Mean Corpuscular Volume 87.9 fl (80-100); Mean Platelet Volume 9.8 fl (7.4-10.4); Monocytes Absolute Auto 0.5 K/mm3 (0.1-0.6); Monocytes Percent Auto 5.9 % (2.6-8.5); Neutrophils Absolute Auto 4.6 K/mm3 (1.3-6.7); Neutrophils Percent Auto 57.2 % (45.5-73.1); Platelet Count Result 313 k/mm3 (150-375); Red Blood Count 4.39 M/mm3 (4.2-5.4); Red Cell Distribution Width 14.2 % (11.5-14.5)
[2021-08-11 06:08] LABS: Alanine Aminotransferase 9 U/L (4-35); Albumin Level 3.3 g/dL (3.5-5.1); Alkaline Phosphatase 57 U/L (38-126); Anion Gap 5 mmol/L (8-16); Aspartate Amino Transferase 17 U/L (14-36); Bilirubin,Total 0.2 mg/dL (0.2-1.3); Blood Urea Nitrogen 6 mg/dL (7-17); Calcium 8.6 mg/dL (8.4-10.2); Carbon Dioxide 26 mmol/L (22-30); Chloride 106 mmol/L (98-107); Estimated CRCL calculation 94 ml/min; Estimated Glomerular Filt Rate > 60; Glucose 105 mg/dL (65-110); Magnesium 1.9 mg/dL (1.6-2.3); Potassium 3.7 mmol/L (3.4-5.0); Sodium 137 mmol/L (137-145)
[2021-08-11 06:37] VITALS: BP 130/58; PULSE 68; RESP 18; TEMP 37.1
[2021-08-11] MEDS: NICOTINE (*PBKC) 21 MG PATCH 1 PATCH TRANSDERM (07:59)
[2021-08-11] MEDS: DULoxetine HCL 60 MG CAPSULE.DR PO (07:59)
[2021-08-11] MEDS: ENOXAPARIN 40 MG/0.4 ML SYRINGE SUB-Q (07:59)
[2021-08-11] MEDS: LOSARTAN POTASSIUM 100 MG TABLET PO (07:59)
[2021-08-11] MEDS: PANTOPRAZOLE 40 MG TABLET PO (07:59)
[2021-08-11] MEDS: ASPIRIN 81 MG CHEWABLE TABLET PO (07:59)
[2021-08-11] MEDS: DULoxetine HCL 30 MG CAPSULE.DR PO (08:00)
[2021-08-11] MEDS: ATORVASTATIN 20 MG TABLET PO (08:00)
[2021-08-11] MEDS: FLUTICASONE PROPIONATE 0.05% NA SPR 16 GM BTL (*BKC) 1 SPRAY NASAL (08:00)
[2021-08-11] MEDS: FLUTICASONE/SALMETEROL 115-21 MCG INHALER 1 PUFF 2 PUFF INHALATION (08:30)
[2021-08-11 08:32] VITALS: PULSE 90; O2SAT 98
--- NOTE | 2021-08-11 10:00 | PM.DS ---
DS: Admitting Diagnosis Discharge Date 08/11/21 Admitting Diagnosis chest pain DS: Discharge Diagnosis Discharge Diagnosis (1) Chest pain: Qualifiers: Chest pain type: unspecified Qualified Code(s): R07.9 - Chest pain, unspecified Code(s): R07.9 - Chest pain, unspecified Status: Acute Assessment and Plan: -Heart score of 5 with moderate risk however clinical history not suggestive of cardiac chest pain -EKG does show ST-T depressions in the lateral leads noted. Repeat EKG with resolution of those depressions noted -Severely hypokalemic on admission, this has also corrected -Troponin was negative on arrival and serial troponins were negative. -No prior history of coronary artery disease -Chest x-ray with no acute cardiopulmonary disease -CTA negative for PE. Small right lower lobe noncalcified nodules likely granulomas but one-year follow-up noncontrast chest CT recommended. -ECHO: EF 65-70% mildly increased left ventricular wall thickness grade 2 diastolic dysfunction no aortic valve stenosis mild aortic valve regurgitation trace tricuspid valve regurgitation no pulmonary hypertension small circumferential pericardial effusion with fibrinous material within the pericardial space -Stress test 08/10/2019 to no reversible or fixed perfusion abnormality to suggest ischemia or infarction. Normal left ventricular wall motion. Ejection fraction 68% -evaluated by cardiology who suspects chest wall pain -per cardiology pt stable for discharge with outpatient follow up. She is currently pain free. (2) Acute hypokalemia: Code(s): E87.6 - Hypokalemia Status: Acute Assessment and Plan: -Replaced. -magnesium low which was also replaced. (3) Tobacco abuse: Code(s): Z72.0 - Tobacco use Status: Acute Assessment and Plan: -Patient states she did quit smoking same day as admission after smoking approximately 2 packs of cigarettes a day for last 20 years. -Will place a nicotine patch on patient and continue to encourage smoking cessation. (4) Lung nodule: Code(s): R91.1 - Solitary pulmonary nodule Status: Acute Assessment and Plan: -Small right lower lobe noncalcified nodule likely granuloma. -Need follow-up noncontrast chest CT in 1 year. (5) Hypertension: Qualifiers: Hypertension type: primary hypertension Qualified Code(s): I10 - Essential (primary) hypertension Code(s): I10 - Essential (primary) hypertension Status: Acute Assessment and Plan: -Not on any medications at home. -Has been on losartan here with improvement -will send home on Losartan with close pcp follow up (6) Acute rhinosinusitis: Code(s): J01.90 - Acute sinusitis, unspecified Status: Acute Assessment and Plan: -With persistent symptoms with postnasal drip. -Received 2 rounds of antibiotics. -Continue Flonase nasal spray on discharge -Does have underlying history of asthma but not any maintenance steroid inhaler. -Continue Symbicort 2 puffs twice daily on discharge -x-rays sinus negative for sinusitis (7) Pericardial effusion: Code(s): I31.3 - Pericardial effusion (noninflammatory) Status: Acute Assessment and Plan: -Small pericardial effusion. -Could be from recent likely viral sinusitis. -Symptomatic management -No intervention at this time per cardiology (8) Coronary artery calcification: Code(s): I25.10 - Atherosclerotic heart disease of [place] coronary artery without angina pectoris; I25.84 - Coronary atherosclerosis due to calcified coronary lesion Status: Acute Assessment and Plan: -CT evidence. -Stress test negative. -Continue aspirin 81 and atorvastatin (9) Abdominal pain: Code(s): R10.9 - Unspecified abdominal pain Status: Acute DS: Summary Hospital Course Reason for hospitalization: Pt is
== END 2021-08-11 10:50 | disposition home or self-care (01) ==
LOC: ANHED 14:43 → ANHIMU 16:15 → ANH3MED 08-10 12:12
PROVIDERS: Internal Medicine; Nurse Practitioner Adult Health; Admitting Provider Hospitalist; Emergency Provider Emergency Medicine; Visit Provider Physician Assistant
DX: R07.9 Chest pain, unspecified (principal); E87.6 Hypokalemia; R06.02 Shortness of breath; J01.90 Acute sinusitis, unspecified; I31.3 Pericardial effusion (noninflammatory); E83.41 Hypermagnesemia; R11.0 Nausea; R10.9 Unspecified abdominal pain; R91.1 Solitary pulmonary nodule; I25.10 Atherosclerotic heart disease of native coronary artery without angina pectoris; I25.84 Coronary atherosclerosis due to calcified coronary lesion; R94.31 Abnormal electrocardiogram [ECG] [EKG]; J44.9 Chronic obstructive pulmonary disease, unspecified; I10 Essential (primary) hypertension; M81.0 Age-related osteoporosis without current pathological fracture; K21.9 Gastro-esophageal reflux disease without esophagitis; F41.8 Other specified anxiety disorders; Z79.51 Long term (current) use of inhaled steroids; F17.210 Nicotine dependence, cigarettes, uncomplicated; Z20.822 Contact with and (suspected) exposure to COVID-19
CPT/HCPCS: 36415; 70220; 71046; 71275; 74176; 78452; 80048; 80053; 83690; 83735; 84132; 84484; 85025; 85380; 85610; 85730; 93005; 93017; 93306; 94640; 96365; 96366; 96372; 96375; 96376; 99285; A9270; A9502; C9803; G0378; J1650; J2405; J2785; J3475; J3480; J7040; Q9967; U0003; U0005

== ENCOUNTER 2021-10-03 13:06 | Outpatient (CLI) | payer OTHER, SELFPAY | END 2021-10-03 13:07 | disposition home or self-care (01) | LOC: ANHAUDIO 13:07 | PROVIDERS: PCP Family Medicine; Visit Provider Otolaryngology | DX: H93.13 Tinnitus, bilateral (principal); H90.A22 Sensorineural hearing loss, unilateral, left ear, with restricted hearing on the contralateral side; H90.A31 Mixed conductive and sensorineural hearing loss, unilateral, right ear with restricted hearing on the contralateral side | CPT/HCPCS: 92557; 92567 ==

== ENCOUNTER 2021-11-13 10:46 | Outpatient (RCR) | payer OTHER, SELFPAY | END 2021-11-13 23:59 | disposition home or self-care (01) | LOC: ANHAUDIO 10:46 | PROVIDERS: PCP Family Medicine; Visit Provider Otolaryngology | DX: Z46.1 Encounter for fitting and adjustment of hearing aid (principal); H90.3 Sensorineural hearing loss, bilateral | CPT/HCPCS: 99199 ==

== ENCOUNTER 2024-12-01 16:52 | Emergency (ER) | payer OTHER, SELFPAY ==
--- OUTSIDE RECORDS SUMMARY | 2024-12-01 16:55 | XMS_ITS | Referral Summary ---
Author Organization [facility] Address [address] [place] [address] Care Team Providers Care Foot Drill Operator Name Role Phone Mansoor Sparks MD Primary Care Provider [phone] Jesús Barrera MD Unavailable [phone] Allergies Active Allergy Reactions Criticality Noted Date Comments Ferrous Sulfate Unknown High 04/17/2022 Ibuprofen Stomach upset,Vomiting High 03/07/2017 Stomach/GI Upset Medications albuterol 2.5 mg /3 mL (0.083 %) nebulizer solution Inhale 3 mL (2.5 mg total) every 6 (six) hours as needed 9 Active albuterol HFA (PROVENTIL HFA,VENTOLIN HFA,PROAIR HFA) 90 mcg/actuation inhaler Inhale Active atorvastatin (LIPITOR) 20 mg tablet Take 1 tablet (20 mg total) by mouth daily [address] (CYMBALTA) 60 mg capsule TAKE 1 CAPSULE BY MOUTH ONCE DAILY IN THE MORNING FOR 30 DAYS 1 Active losartan (COZAAR) 100 mg tablet Take 1 tablet (100 mg total) by mouth daily 1 Active omeprazole (PriLOSEC) 20 mg capsule TAKE 1 CAPSULE BY MOUTH TWICE DAILY BEFORE MEAL(S) 1 Active traZODone (DESYREL) 300 mg tablet TAKE 1 TABLET BY MOUTH NEEDED AT BEDTIME FOR 30 DAYS 1 Active aspirin 81 mg chewable tablet aspirin 81 mg tablet,chewable 0 Active cyanocobalamin , vitamin B-12, 1,000 mcg capsule cyanocobalamin (vitamin B-12) 1,000 mcg capsule 0 Active Coreg 25 mg tablet Coreg 25 mg tablet 2 Active NIFEdipine CC 30 mg 24 hr tablet nifedipine 30 mg tablet extended release 3 Active capsaicin (Arthritis Pain Relief,capsaic ,) 0.075 % topical cream Arthritis Pain Relief(capsaic) 0.075% cream 0 Active Symbicort 80-4.5 mcg/actuation inhaler Symbicort 80-4.5 mcg/actuation HFA aerosol inhaler Active Active Problems Problem Noted Date Diagnosed Date Iron deficiency anemia 01/29/2021 Social History Tobacco Use Types Packs/Day Years Used Date Smoking Tobacco: Every Day Cigarettes Smokeless Tobacco: Never Tobacco Cessation:Ready to Q uit: Not Asked; Counseling Given: Not Answered AUDIT-C Answer Date Recorded Q1: How often do you have a drink containing alc ohol? Never 05/15/2021 Average Number of Drinks Not on file 021 Frequency of Binge Drinking Not on file 05/01 Personal Safety Answer Date Recorded Getting School Help Needed Not on file 06/19 Comments Unknown Sex and Gender Information Value Date Recorded Sex Assigned at Not on file Legal Sex Female 2:27 AM NURSING INFORMATICS SPECIALIST Gender Identity Not on file Sexual Orientation Not on file Last Filed Vital Signs Vital Sign Reading Time Taken Comments Blood Pressure 152/79 03/18/2024 12:30 PM CDT Pulse 78 03/18/2024 12:30 PM CDT Temperature 36.6 C (97.9 F) 03/18/2024 10:12 AM CDT Respiratory Rate 18 03/18/2024 12:01 PM CDT Oxygen Saturation 97% 03/18/2024 12:30 PM CDT Inhaled Oxygen Concentration - - Weight 73.9 kg (163 lb) 03/18/2024 10:12 AM CDT no shoes Height 156.2 cm (5' 1.5) 03/02/2024 3:38 PM CDT Body Mass Index 30.3 03/02/2024 3:38 PM CDT Plan of Treatment Not on file Procedures Procedure Name Priority Date/Time Associated Diagnosis Comments SCREENING MAMMOGRAM BILATERAL W PACO Routine 04/29/2017 2:33 PM NURSING INFORMATICS SPECIALIST from Last 3 Months or Most Recently Relevant to Health Maintenance Results * Screening Mammogram Bilateral W Paco (04/29/2017 2:33 PM NURSING INFORMATICS SPECIALIST) Anatomical Region Laterality Modality Breast Bilateral Mammography 04/29/2017 2:33 PM NURSING INFORMATICS SPECIALIST Impressions 04/29/2017 4:33 PM NURSING INFORMATICS SPECIALIST BI-RAD 1 NEGATIVE There is no mammographic evidence of malignancy. A 1 year screening mammogram is recommended. The patient has been or will be contacted. The patient will be entered into a reminder system with a target due date of 1 year for her next screening exam. Electronically signed by: Dr. Spike Broussard M.D. nh/penrad:04/29/2017 16:33:10 Special Education Educational Assistant: Brit Valdivia [facility] letter sent: Normal Exam Reading location: [facility] BI-RADS: 1 Negative [EOD] Narrative 04/29/2017 4:33 PM NURSING INFORMATICS SPECIALIST - MG BILATERAL DIGITAL SCREENING MAMMOGRAM 3D/2D WITH MEDIOLATERAL OBLIQUE CRANIOCAUDAL: 04/29/2017 The study was acquired using full field digital technology and interpreted from soft copy. 2D digital mammographic views, as well as 3D digital tomosynthesis were performed in the CC and MLO projections. CLINICAL: Routine mammogram. Patient denies any problems. Mother with breast cancer. No personal history of breast cancer. COMPARISONS: Comparison is made to exams dated: 12/13/2015 mammogram and 09/23/2014 mammogram - [facility]. BREAST TISSUE: The tissue of both breasts is almost entirely fatty. FINDINGS: No significant masses, calcifications, or other findings are seen in either breast. There has been no significant interval change. Procedure Note Provider, MD Jorge Luis - 10/15/2020 - MG BILATERAL DIGITAL SCREENING MAMMOGRAM 3D/2D WITH MEDIOLATERAL OBLIQUE CRANIOCAUDAL: 04/29/2017 The study was acquired using full field digital technology and interpretedfrom soft copy. 2D digital mammographic views, as well as 3D digital tomosynthesis were performed in the CC and MLO projections. CLINICAL: Routine mammogram. Patient denies any problems. Mother withbreast cancer. No personal history of breast cancer. COMPARISONS: Comparison is made to exams dated: 12/13/2015 mammogram and 09/23/2014 mammogram - [facility]. BREAST TISSUE: The tissue of both breasts is almost entirely fatty. FINDINGS: No significant masses, calcifications, or other findings areseen in either breast. There has been no significant interval change. IMPRESSION: BI-RAD 1 NEGATIVE There is no mammographic evidence of malignancy. A 1 year screeningmammogram is recommended. The patient has been or will be contacted. The patient will be entered into a reminder system with a target due dateof 1 year for her next screening exam. Electronically signed by: Dr. Spike ahuja/radha:04/29/2017 16:33:10 Special Education Educational Assistant: Brit Valdivia [facility] letter sent: Normal Exam Reading location: [facility] BI-RADS: 1 Negative [EOD] [place] CNC PROGRAMMER IMG MAMMO PROCEDURES Final Res ult from Last 3 Months or Most Recently Relevant to Health Maintenance Insurance [facility] Member Subscriber Plan / Payer (Ef fective 2020-Present) Name:Purvi Villarreal Relation to Subscriber:Self Name:Purvi Villarreal Payer ID:[id number] (NAIC) Group ID:Not on file Type:MEDICAID RISK OTHER [address]: [address] [place] [address] [place] [address] Member Subscriber Plan / Payer (Ef fective 2020-Present) Name:Purvi Villarreal Relation to Subscriber:Self Name:Purvi Villarreal Payer ID:[id number] (NAIC) Group ID:Not on file Type:MEDICAID RISK OTHER Address: [address] [place] [address] [place] [address] Care Teams Foot Drill Operator Relationship Specialty Start Date End Date Mansoor Sparks MD [address] [facility] [address] [place] [address] PCP - General Family Medicine 06/18/22 Jesús Barrera MD [address] [facility], [facility] [address] [place] [address] Medical Oncologist/Freight Forwarder Hematology and Oncology 02/16/24
--- OUTSIDE RECORDS SUMMARY | 2024-12-01 16:55 | XMS_ITS | Clinical Summary ---
Author Organization [facility] Address [address] [place] [id number] Care Team Providers Care Tailings Dam Laborer Name Role Phone Mansoor Sparks MD Primary Care Provider [phone] Jesús Barrera MD Unavailable [phone] Allergies Active Allergy Reactions Criticality Noted Date [...] Date Diagnosed Date Iron deficiency anemia 01/29/2021 Surgical History Surgery Date Site/Laterality Comments HYSTERECTOMY FOOT SURGERY Medical History Medical History Date Comments Anemia Hypertension Anxiety Asthma Bronchitis Depression Ulcer (traumatic) of oral mucosa Leaky heart valve Family History Medical History Relation Name Comments Breast cancer Mother Relation Name Status Comments Brother Justin Alive Father Alive Mother Sister Shelia Alive Social History Tobacco Use Types Packs/Day Years [...] on file Legal Sex Female 2:27 AM ROD PLACER Gender Identity Not on file Sexual Orientation Not on file Obstetrics History Last Filed Vital Signs Vital Sign Reading [...] 03/02/2024 3:38 PM CDT Plan of Treatment Health Maintenance Due Date Last Done Comments Colon Cancer Screening-Colonoscopy 1968 Depression Screening 1968 Hepatitis C Screening 1968 DTaP/Tdap/Td Vaccine (1 - Tdap) 09/06/1979 Hepatitis B Screening 1986 Regular Well Visit/Exam 18-64 1986 Pneumococcal vaccine <65 (1 of 2 - PCV) 09/06/1987 Breast Cancer Screening-Mammogram 04/29/2018 04/29/2017, 12/13/2015, 09/23/2014 Zoster Vaccine (1 of 2) 2018 Covid-19 Vaccine (3 - season) 2024, 10/27/2020 Influenza Vaccine (#1) 2025 Procedures Procedure Name Priority Date/Time Associated Diagnosis Comments SCREENING MAMMOGRAM BILATERAL W PACO Routine 04/29/2017 2:33 PM ROD PLACER from Last 3 Months or Most Recently Relevant to Health Maintenance Results * Screening Mammogram Bilateral W Paco (04/29/2017 2:33 PM ROD PLACER) Anatomical Region Laterality Modality Breast Bilateral Mammography 04/29/2017 2:33 PM ROD PLACER Impressions 04/29/2017 4:33 PM ROD PLACER BI-RAD 1 NEGATIVE There is no mammographic evidence of malignancy. A 1 year screening mammogram is recommended. The patient has been or will be contacted. The patient will be entered into a reminder system with a target due date of 1 year for her next screening exam. Electronically signed by: Dr. Spike ahuja/radha:04/29/2017 16:33:10 City Carrier: Brit Valdivia, [facility] letter sent: Normal Exam Reading location: [facility] BI-RADS: 1 Negative [EOD] Narrative 04/29/2017 4:33 PM ROD PLACER - MG BILATERAL DIGITAL SCREENING MAMMOGRAM 3D/2D [...] dated: 12/13/2015 mammogram and 09/23/2014 mammogram - [facility]. BREAST TISSUE: The tissue of both breasts [...] dated: 12/13/2015 mammogram and 09/23/2014 mammogram - [facility]. BREAST TISSUE: The tissue of both breasts [...] Electronically signed by: Dr. Spike ahuja/radha:04/29/2017 16:33:10 City Carrier: Brit Valdivia [facility] letter sent: Normal Exam Reading location: [facility] BI-RADS: 1 Negative [EOD] us Helenedonnie Veto ESPINAL IMG MAMMO PROCEDURES Final Res ult from Last 3 Months or Most Recently Relevant to Health Maintenance Insurance [facility], [address] [phone] [place] [address] , [address] [facility] Care Teams Tailings [place] Laborer Relationship Specialty Start Date End Date Mansoor Sparks MD [address] [facility] [address] [place] [address] PCP - General Family Medicine 06/18/22 Jesús Barrera MD [facility]8 [facility] MEDICAL ONCOLOGY, [facility] [address] [place] [address] Medical Oncologist/Torch Brazer Hematology and Oncology 02/16/24
--- OUTSIDE RECORDS SUMMARY | 2024-12-01 16:55 | XMS_ITS | Clinical Summary ---
Author Organization [facility] [employer] Address [address] [facility] [place] [address] Care Team Providers Care Fuel Efficient Automobile Designer Name Role Phone Unavailable Primary Care Provider Unavailabl e Source Comments [facility] [employer],non-owned Affiliates and Associated Physician Practices is amultiple site organization consisting of ambulatory clinics and hospital sitesin [place], [place], [place] and [place]. This disclosure is being madepursuant to the Care Everywhere program and may not contain all information available regarding this patient. Last updated 18.[facility] [employer] Allergies Active Allergy Reactions Criticality Noted Date Comments Ibuprofen Vomiting 01/03/2018 Medications * Be aware that medications may not be up to date on this document. Alwaysverify current medications with the patient. ondansetron, disintegrating, (ZOFRAN ODT) 4 MG tablet Take 1 tablet by mouth every 6 hours as needed for Nausea/Vomiti ng Allow tablet to dissolve on the tongue 20 tablet 01/04/2018 Active Social History Tobacco Use Types Packs/Day Years Used Date Smoking Tobacco: Every Day Smokeless Tobacco: Never Alcohol Use Standard Drinks/Week Comments No 0 (1 standard drink = 0.6 oz pur e alcohol) Comments No Sex and Gender Information Value Date Recorded Sex Assigned at Not on file Legal Sex Female 8:05 PM CDT Gender Identity Not on file Sexual Orientation Not on file Last Filed Vital Signs Vital Sign Reading Time Taken Comments Blood Pressure 126/80 01/04/2018 3:30 AM CDT Pulse 83 01/04/2018 3:30 AM CDT Temperature 36.7 C (98 F) 01/03/2018 8:29 PM CDT Respiratory Rate 14 01/04/2018 3:30 AM CDT Oxygen Saturation 99% 01/04/2018 3:30 AM CDT Inhaled Oxygen Concentration - - Weight 76.7 kg (169 lb) 01/03/2018 8:29 PM CDT Height 157.5 cm (5' 2) 01/03/2018 8:29 PM CDT Body Mass Index 30.91 01/03/2018 8:29 PM CDT Plan of Treatment Health Maintenance Due Date Last Done Comments COLOGUARD (AGES 45-75) - COL ON CA SCREENING 1968 COLON MONITORING 1968 COLONOSCOPY - COLON CA SCREENING 1968 CT COLONOGRAPHY - COLON CA SCREENING 1968 Colorectal Cancer Screening 1968 FIT - COLON CA SCREENING 1968 FLEX SIG - COLON CA SCREENING 1968 LIPID TESTING 1968 MAMMOGRAM 1968 HIV SCREENING 09/06/1983 HEPATITIS C SCREENING 09/01/1986 DTAP/TDAP/TD VACCINES (1 - Tdap) 09/06/1987 HEPATITIS B VACCINE (1 of 3 - 19+ 3-dose series) 09/06/1987 PNEUMOCOCCAL VACCINE 50+ (1 of 1 - PCV) 2018 ZOSTER VACCINE (1 of 2) 2018 COVID-19 VACCINE (1 - 2023-2 5 season) 2024 DEPRESSION SCREENING 06/01/2024 INFLUENZA VACCINE (#1) 2025 HIB VACCINE Aged Out No longer eligi ble based on patient's age to complete this topic HPV VACCINE Aged Out No longer eligi ble based on patient's age to complete this topic MENINGOCOCCAL (Group B) VACC INE SHARED DECISION-MAKING Aged Out No longer eligibl e based on patient's age to complete this topic MENINGOCOCCAL GROUPS A/C/Y/W VACCINE Aged Out No longer eligible b ased on patient's age to complete this topic Insurance [facility]
[2024-12-01 16:56] VITALS: BP 100/78; PULSE 110; RESP 18; TEMP 36.4; O2SAT 100
--- OUTSIDE RECORDS SUMMARY | 2024-12-01 21:54 | XMS_ITS | Referral Summary ---
Author Organization [facility] Address [address] [place] [address] Care Team Providers Care Fabric Worker Supervisor Name Role Phone Mansoor Sparks MD Primary Care Provider Jesús Barrera MD Unavailable [phone] Allergies Active Allergy Reactions Criticality Noted Date [...] on file Legal Sex Female 2:27 AM CASE PREPARER AND LINER Gender Identity Not on file Sexual Orientation [...] BILATERAL W PACO Routine 04/29/2017 2:33 PM CASE PREPARER AND LINER from Last 3 Months or Most Recently Relevant to Health Maintenance Results * Screening Mammogram Bilateral W Paco (04/29/2017 2:33 PM CASE PREPARER AND LINER) Anatomical Region Laterality Modality Breast Bilateral Mammography 04/29/2017 2:33 PM CASE PREPARER AND LINER Impressions 04/29/2017 4:33 PM CASE PREPARER AND LINER BI-RAD 1 NEGATIVE There is no mammographic evidence of malignancy. A 1 year screening mammogram is recommended. The patient has been or will be contacted. The patient will be entered into a reminder system with a target due date of 1 year for her next screening exam. Electronically signed by: Dr. Spike Broussard M.D. nh/penrad:04/29/2017 16:33:10 Electroplating Laborer: Brit Valdivia [facility] letter sent: Normal Exam Reading location: [facility] BI-RADS: 1 Negative [EOD] Narrative 04/29/2017 4:33 PM CASE PREPARER AND LINER - MG BILATERAL DIGITAL SCREENING MAMMOGRAM 3D/2D [...] dated: 12/13/2015 mammogram and 09/23/2014 mammogram - [facility]. BREAST TISSUE: The tissue of both breasts [...] dated: 12/13/2015 mammogram and 09/23/2014 mammogram - [facility]. BREAST TISSUE: The tissue of both breasts [...] Electronically signed by: Dr. Spike ahuja/radha:04/29/2017 16:33:10 Electroplating Laborer: Brit Valdivia [facility] letter sent: Normal Exam Reading location: [facility] BI-RADS: 1 Negative [EOD] us [place] aLws HOME AID IMG MAMMO PROCEDURES Final Res ult from Last 3 Months or Most Recently Relevant to Health Maintenance Insurance [facility] Member Subscriber Plan / Payer (Ef fective 2020-Present) Name:Purvi Villarreal Relation to Subscriber:Self Name:Purvi Villarreal Payer ID:[id number] (NAIC) Group ID:Not on file Type:MEDICAID RISK OTHER Address: [address] [place] [address] [place] [address] Member Subscriber Plan / Payer (Ef fective 2020-Present) Name:Purvi Villarreal Relation to Subscriber:Self Name:Purvi Villarreal Payer ID:[id number] (NAIC) Group ID:Not on file Type:MEDICAID RISK OTHER Address: [address] [place] [address] [place] [address] Care Teams Fabric Worker Supervisor Relationship Specialty Start Date End Date Mansoor Sparks MD [address] [facility] [address] [place] [address] PCP - General Family Medicine 06/18/22 Jesús Barrera MD [address] [facility] MEDICAL ONCOLOGY, [facility] [address] [place] [address] Medical Oncologist/Wastewater Analyst Hematology and Oncology 02/16/24
--- OUTSIDE RECORDS SUMMARY | 2024-12-01 21:54 | XMS_ITS | Clinical Summary ---
Author Organization [facility] [employer] Address [address] [facility] [place] [address] Care Team Providers Care Feed Mill Lab Technician Name Role Phone Unavailable Primary Care Provider Unavailabl e Source Comments [facility] [employer],non-owned Affiliates and Associated Physician Practices is amultiple site organization consisting of ambulatory clinics and hospital sitesin [place], [place], [place] and [place]. This disclosure is being madepursuant to the Care Everywhere program and may not contain all information available regarding this patient. Last updated 18.[facility] [employer] Allergies Active Allergy Reactions Criticality Noted Date [...] patient's age to complete this topic Insurance [facility]
--- OUTSIDE RECORDS SUMMARY | 2024-12-01 21:54 | XMS_ITS | Clinical Summary ---
Author Organization [facility] Address [address] [place] [id number] Care Team Providers Care Bridge Saw Operator Name Role Phone Mansoor Sparks MD Primary Care Provider [phone] Jesús Barrera MD Unavailable Allergies Active Allergy Reactions Criticality Noted Date [...] on file Legal Sex Female 2:27 AM MANAGER ENVIRONMENTAL SERVICES Gender Identity Not on file Sexual Orientation [...] BILATERAL W PACO Routine 04/29/2017 2:33 PM MANAGER ENVIRONMENTAL SERVICES from Last 3 Months or Most Recently Relevant to Health Maintenance Results * Screening Mammogram Bilateral W Paco (04/29/2017 2:33 PM MANAGER ENVIRONMENTAL SERVICES) Anatomical Region Laterality Modality Breast Bilateral Mammography 04/29/2017 2:33 PM MANAGER ENVIRONMENTAL SERVICES Impressions 04/29/2017 4:33 PM MANAGER ENVIRONMENTAL SERVICES BI-RAD 1 NEGATIVE There is no mammographic evidence of malignancy. A 1 year screening mammogram is recommended. The patient has been or will be contacted. The patient will be entered into a reminder system with a target due date of 1 year for her next screening exam. Electronically signed by: Dr. Spike ahuja/radha:04/29/2017 16:33:10 Assistant Women'S Rowing Coach: Brit Valdivia, [facility] letter sent: Normal Exam Reading location: [facility] BI-RADS: 1 Negative [EOD] Narrative 04/29/2017 4:33 PM MANAGER ENVIRONMENTAL SERVICES - MG BILATERAL DIGITAL SCREENING MAMMOGRAM 3D/2D [...] dated: 12/13/2015 mammogram and 09/23/2014 mammogram - [facility]. BREAST TISSUE: The tissue of both [...] dated: 12/13/2015 mammogram and 09/23/2014 mammogram - [facility]. BREAST TISSUE: The tissue of both [...] Electronically signed by: Dr. Spike ahuja/radha:04/29/2017 16:33:10 Assistant Women'S Rowing Coach: Brit Valdivia [facility] letter sent: Normal Exam Reading location: [facility] BI-RADS: 1 Negative [EOD] us Helenedonnie Veto ESPINAL IMG MAMMO PROCEDURES Final Res ult from Last 3 Months or Most Recently Relevant to Health Maintenance Insurance [facility], [address] [phone] [place] [address] , [address] [facility] Care Teams Bridge Saw Operator Relationship Specialty Start Date End Date Mansoor Sparks MD [address] [facility] [address] [place] [address] PCP - General Family Medicine 06/18/22 Jesús Barrera MD [facility]8 [facility] MEDICAL ONCOLOGY, [facility] [address] [place] [address] Medical Oncologist/Signal Fitter Hematology and Oncology 02/16/24
== END 2024-12-01 21:41 | disposition left against medical advice (07) ==
PROVIDERS: PCP Family Medicine
DX: R19.7 Diarrhea, unspecified (principal)
CPT/HCPCS: 99199

== ENCOUNTER 2025-04-16 16:34 | Inpatient (IN) | payer OTHER, SELFPAY ==
[2025-04-16] VITALS (10 sets, daily range): BP systolic 108–129; BP diastolic 56–80; PULSE 69–96; RESP 14–20; TEMP 36.4–36.7; O2SAT 94–98; BMI 32.4
[2025-04-16 16:51] LABS: Hematocrit 36.2 % (37.0-47.0); Hemoglobin 10.2 g/dL (12.0-15.0); Immature Granulocyte Percent A 0.4 % (0-0.5); Lymphocytes Absolute Auto 2.60 K/mm3 (0.9-3.2); Mean Corpuscular HGB Conc 28.2 g/dl (32-36); Mean Corpuscular Hemoglobin 20.8 pg (26-34); Mean Corpuscular Volume 73.9 fl (80-100); Nucleated Red Blood Cells Absolute Auto 0.000 K/mm3 (0.0-0.012); Nucleated Red Blood Cells Perc 0.0 % (0.0-0.2); Platelet Count Result 481 k/mm3 (150-375); Red Blood Count 4.90 M/mm3 (4.2-5.4); White Blood Count 7.6 K/mm3 (4.5-10.0)
[2025-04-16 17:08] LABS: Anisocytosis 1+; Hypochromasia 1+; Microcytosis Occasional (NORMAL); Ovalocytes Occasional; Schistocytes None Seen
[2025-04-16 17:09] LABS: Alanine Aminotransferase 15 U/L (6-35); Albumin Level 4.2 g/dL (3.5-5.1); Alkaline Phosphatase 52 U/L (38-126); Anion Gap 9 mmol/L (4-12); Aspartate Amino Transferase 26 U/L (14-36); Bilirubin,Total 0.5 mg/dL (0.2-1.3); Blood Urea Nitrogen 7 mg/dL (7-17); Calcium 9.6 mg/dL (8.4-10.2); Carbon Dioxide 29 mmol/L (22-30); Chloride 99 mmol/L (98-107); Estimated CRCL calculation 68 ml/min; Estimated Glomerular Filt Rate > 60; Glucose 114 mg/dL (65-110); Lipase 61 U/L (23-300); Magnesium 0.4 mg/dL (1.6-2.3); Potassium 2.8 mmol/L (3.4-5.0); Sodium 137 mmol/L (137-145); Total Protein 7.5 g/dL (6.3-8.2)
--- NOTE | 2025-04-16 17:10 | ECG_ITS ---
Test Date: 2025-04-16 17:40:54 Measurements Intervals [place] Rate: 81 P: 50 MN: 151 QRS: 36 QRSD: 77 T: -1 QT: 359 QTc: 419 Interpretive Statements SINUS RHYTHM LEFT VENTRICULAR HYPERTROPHY AND ST-T CHANGE Electronically Signed On 04-17-2025 00:12:06 SENIOR CHEMICAL ENGINEER by Masood Vega D.O
[2025-04-16] MEDS: POTASSIUM CHLORIDE INJ 40 MEQ in SODIUM CHLORIDE 0.9% IV 500 ML 130 MEQ IVPB (17:25)
[2025-04-16] MEDS: MAGNESIUM SULF 2 GM/WATER 50ML 2 GM/50 ML BAG IVPB (17:25)
--- NOTE | 2025-04-16 17:29 | ED.GENADULT ---
HPI - General Adult General Chief complaint: Recheck/Abnormal Lab/Rx Stated complaint: n/v Time Seen by Provider: 04/16/25 17:09 Source: patient Mode of arrival: ambulatory Limitations: no limitations History of Present Illness HPI narrative: 54-year-old with history of hypertension, tobacco abuse, depression hypokalemia, COPD not feeling well for past 3 weeks. Patient states that she has coughing spells, soon after she finished coughing she starts vomiting. She denies having any fever or chills.She has pain in upper abdomen at times and has no pain at this time. Onset (ago): week(s) (3) Severity: mild Relieving factors: none Exacerbating factors: none Related Data Home Medications ?Medication ?Instructions ?Recorded ?Confirmed ?Last Taken ?Type albuterol sulfate 2.5 mg/3 mL 2.5 mg inhalation TID PRN 08/08/21 08/08/21 1 Month Ago History (0.083 %) solution for nebulization Shortness Of Breath ~07/11/21 albuterol sulfate 90 mcg/actuation 2 puff inhalation PRN PRN 08/08/21 08/08/21 2 Days Ago History aerosol inhaler Shortness Of Breath ~08/06/21 atorvastatin 20 mg tablet 20 mg PO DAILY 08/08/21 08/08/21 08/08/21 11:00 History duloxetine 30 mg capsule,delayed 30 mg PO DAILY 08/08/21 08/08/21 08/08/21 11:00 History release duloxetine 60 mg capsule,delayed 60 mg PO DAILY 08/08/21 08/08/21 08/08/21 11:00 History release losartan 100 mg tablet 100 mg PO DAILY 08/08/21 08/08/21 08/08/21 11:00 History nicotine 21 mg/24 hr daily 1 patch transdermal DAILY 08/08/21 08/08/21 2 Days Ago History transdermal patch ~08/06/21 omeprazole 40 mg capsule,delayed 40 mg PO BID 08/08/21 08/08/21 08/08/21 11:00 History release trazodone 300 mg tablet 300 mg PO HS 08/08/21 08/08/21 08/07/21 21:00 History Allergies Allergy/AdvReac Type Severity Reaction Status Date / Time ibuprofen Allergy Mild Vomiting Verified 08/08/21 17:17 Review of Systems Review of Systems: All systems reviewed & are unremarkable except as noted in HPI and below Constitutional: Constitutional: Reports no additional constitutional complaints Eyes: Eyes: Reports no additional eye complaints ENT: Reports system reviewed and no additional complaints, except as documented Cardiovascular: Cardiovascular: Reports no additional cardiovascular complaints Respiratory: Respiratory: Reports no additional respiratory complaints Gastrointestinal: Gastrointestinal: Reports as per HPI Musculoskeletal: Musculoskeletal: Reports no additional musculoskeletal complaints [facility] Past Medical History Medical History 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 Shingles Anemia Anxiety Fractures lt 3rd finger, rt great toe Osteoporosis Arthritis DDD (degenerative disc disease) Back pain UTI (urinary tract infection) Abnormal uterine bleeding Irritable bowel Ulcer Hemorrhoids GERD (gastroesophageal reflux disease) Pneumonia Bronchitis Asthma COPD (chronic obstructive pulmonary disease) Depression Hypertension Surgical History Surgical History History of bunionectomy H/O: hysterectomy Family History Family History Mother Breast cancer Father Hypertension Sibling Cardiomyopathy Sibling Brain aneurysm Social History Social History Smoking packs per day: 2 Smoking cigarettes per day: 40.0 Years smoked: 20 Smoking pack-years: 40.00 Smoking status: Current every day smoker Tobacco type: cigarettes Alcohol intake: never Substance use: never Spiritual care concerns: No Exam Narrative: GENERAL: Well-appearing, well-nourished, and in no acute distress. HEAD: Normocephalic, atraumatic. EYES: PERRLA and EOMI. ENT: Nares clear, no rhinorrhea or epistaxis. Mucous membranes moist. NECK: Supple. CHEST: Clear to auscultation. No respiratory distress. HEART: Regular rate and rhythm. No murmur heard. Normal peripheral pulses. ABDOMEN: Soft, nontender, nondistended, normal active bowel sounds. EXTREMITIES: Normal range of motion. No edema. SKIN: Warm, dry, no rash. NEURO: No focal deficits. Alert and oriented x3. PSYCH: Normal mood and affect. Course Course Emergency Course: I did review lab work with the patient she is agreeable with admission. Discussed with the hospitalist accepted the patient Vital Signs Vital signs: Vital Signs Temperature 36.7 C 04/16/25 16:41 Pulse Rate 96 04/16/25 16:41 Respiratory Rate 20 04/16/25 16:41 Blood Pressure 129/80 04/16/25 16:41 Pulse Oximetry 98 04/16/25 16:41 Oxygen Delivery Room Air 04/16/25 16:41 Temperature 36.7 C 04/16/25 16:41 Pulse Rate 96 04/16/25 16:41 Respiratory Rate 20 04/16/25 16:41 Blood Pressure 129/80 04/16/25 16:41 Pulse Oximetry 98 04/16/25 16:41 Oxygen Delivery Room Air 04/16/25 16:41 Medical Decision Making Differential Diagnosis Differential Diagnosis: Viral syndrome, sepsis, electrolyte imbalance Medical Records Medical records reviewed: Yes I reviewed the external patient's medical records. Vital Signs Vital Signs: Vital Signs Temperature 36.7 C 04/16/25 16:41 Pulse Rate 96 04/16/25 16:41 Respiratory Rate 20 04/16/25 16:41 Blood Pressure 129/80 04/16/25 16:41 Pulse Oximetry 98 04/16/25 16:41 Oxygen Delivery Room Air 04/16/25 16:41 Temperature 36.7 C 04/16/25 16:41 Pulse Rate 96 04/16/25 16:41 Respiratory Rate 20 04/16/25 16:41 Blood Pressure 129/80 04/16/25 16:41 Pulse Oximetry 98 04/16/25 16:41 Oxygen Delivery Room Air 04/16/25 16:41 Lab Data 04/16/25 16:45 04/16/25 16:45 Labs: Lab Results 04/16/25 Range/Units 16:45 WBC 7.6 (4.5-10.0) K/mm3 RBC 4.90 (4.2-5.4) M/mm3 Hgb 10.2 L (12.0-15.0) g/dL Hct 36.2 L (37.0-47.0) % MCV 73.9 L (80-100) fl MCH 20.8 L (26-34) pg MCHC 28.2 L (32-36) g/dl RDW 17.3 H (11.5-14.5) % Plt Count 481 H D (150-375) k/mm3 MPV 9.1 (7.4-10.4) fl Immature Gran % (Auto) 0.4 (0-0.5) % Neut % (Auto) 55.1 (45.5-73.1) % Lymph % (Auto) 34.0 (18.3-44.2) % Nuckolls % (Auto) 5.9 (2.6-8.5) % Eos % (Auto) 3.7 (0-4.4) % Baso % (Auto) 0.9 (0.2-1.2) % Lymph # (Auto) 2.60 (0.9-3.2) K/mm3 Nuckolls # (Auto) 0.5 (0.1-0.6) K/mm3 Eos # (Auto) 0.3 (0-0.3) K/mm3 Baso # (Auto) 0.1 (0.0-0.1) K/mm3 Abs Immat Gran (auto) 0.03 (0.00-0.031) K/mm3 Absolute Neuts (auto) 4.2 (1.3-6.7) K/mm3 Absolute Nucleated RBC 0.000 (0.0-0.012) K/mm3 Band Neutrophils % Not Reportable Nucleated RBC % 0.0 (0.0-0.2) % Platelet Estimate Increased (Adequate) Hypochromasia 1+ Anisocytosis 1+ Microcytosis Occasional (NORMAL) Ovalocytes Occasional Schistocytes None seen Sodium 137 (137-145) mmol/L Potassium 2.8 L* (3.4-5.0) mmol/L Chloride 99 (98-107) mmol/L Carbon Dioxide 29 (22-30) mmol/L Anion Gap 9 (4-12) mmol/L BUN 7 (7-17) mg/dL Creatinine 0.79 (0.7-1.0) mg/dL Estim Creat Clear Calc 68 ml/min Estimated GFR > 60 (59 - ) Glucose 114 H (65-110) mg/dL Calcium 9.6 (8.4-10.2) mg/dL Magnesium 0.4 L (1.6-2.3) mg/dL Total Bilirubin 0.5 (0.2-1.3) mg/dL AST 26 (14-36) U/L ALT 15 (6-35) U/L Alkaline Phosphatase 52 (38-126) U/L Total Protein 7.5 (6.3-8.2) g/dL Albumin 4.2 (3.5-5.1) g/dL Lipase 61 (23-300) U/L ECG Data EKG #1: ECG completion date: 04/16/25 ECG completion time: 17:43 EKG Interpretation: normal rate (81), no ectopy, no ST changes, normal QT and no acute changes Discharge Plan Discharge Clinical Impression: Acute hypokalemia, Hypomagnesemia, Weakness Patient Disposition: Still a Patient Condition: Stable Patient Language: Djiboutian Prescriptions: No Action atorvastatin 20 mg tablet 20 mg PO DAILY albuterol sulfate 2.5 mg /3 mL (0.083 %) solution for nebulization 2.5 mg inhalation TID PRN (Reason: Shortness Of Breath) omeprazole 40 mg capsule,delayed release(DR/EC) 40 mg PO BID trazodone 300 mg tablet 300 mg PO HS albuterol sulfate 90 mcg/actuation HFA aerosol inhaler 2 puff INHALATION PRN PRN (Reason: Shortness Of Breath) losartan 100 mg tablet 100 mg PO DAILY duloxetine 30 mg capsule,delayed release(DR/EC) 30 mg PO DAILY duloxetine 60 mg capsule,delayed release(DR/EC) 60 mg PO DAILY nicotine 21 mg/24 hr Patch 24 Hour 1 patch TRANSDERMAL DAILY aspirin [Children's Aspirin] 81 mg Tablet,Chewable 81 mg PO DAILY@0800 30 Days Qty: 30 0RF fluticasone propionate 50 mcg/actuation [place],Suspension 1 spray intranasal Q12HR 30 Days Qty: 16 0RF Advair HFA 115-21 mcg/actuation Hfa Aerosol Inhaler 2 puff inhalation Q12HRT 30 Days Qty: 12 0RF Follow-up/Referrals: Clare,Mansoor Talbot MD [Primary Care Provider] Time of Disposition: 17:36
--- OUTSIDE RECORDS SUMMARY | 2025-04-16 17:38 | XMS_ITS | Clinical Summary ---
Author Organization [facility] Address [address] [place] [id number] Care Team Providers Care Feed Handler Name Role Phone Mansoor Sparks MD Primary Care Provider [phone] Jesús Barrera MD Unavailable [phone] Allergies Active Allergy Reactions Criticality Noted Date [...] on file Legal Sex Female 2:27 AM BORE MINER OPERATOR Gender Identity Not on file Sexual Orientation [...] 2) 2018 Covid-19 Vaccine (3 - season) 2025, 10/27/2020 Influenza Vaccine (#1) 2025 Procedures Procedure Name Priority Date/Time Associated Diagnosis Comments SCREENING MAMMOGRAM BILATERAL W PACO Routine 04/29/2017 2:33 PM BORE MINER OPERATOR from Last 3 Months or Most Recently Relevant to Health Maintenance Results * Screening Mammogram Bilateral W Paco (04/29/2017 2:33 PM BORE MINER OPERATOR) Anatomical Region Laterality Modality Breast Bilateral Mammography 04/29/2017 2:33 PM BORE MINER OPERATOR Impressions 04/29/2017 4:33 PM BORE MINER OPERATOR BI-RAD 1 NEGATIVE There is no mammographic evidence of malignancy. A 1 year screening mammogram is recommended. The patient has been or will be contacted. The patient will be entered into a reminder system with a target due date of 1 year for her next screening exam. Electronically signed by: Dr. Spike ahuja/radha:04/29/2017 16:33:10 Hop Separator: Brit Valdivia, [facility] letter sent: Normal Exam Reading location: [facility] BI-RADS: 1 Negative [EOD] Narrative 04/29/2017 4:33 PM BORE MINER OPERATOR - MG BILATERAL DIGITAL SCREENING MAMMOGRAM 3D/2D [...] dated: 12/13/2015 mammogram and 09/23/2014 mammogram - [facility]. BREAST TISSUE: The tissue of both [...] dated: 12/13/2015 mammogram and 09/23/2014 mammogram - [facility]. BREAST TISSUE: The tissue of both [...] Electronically signed by: Dr. Spike ahuja/radha:04/29/2017 16:33:10 Hop Separator: Brit Valdivia [facility] letter sent: Normal Exam Reading location: [facility] BI-RADS: 1 Negative [EOD] us [place] NP IMG MAMMO PROCEDURES Final Res ult from Last 3 Months or Most Recently Relevant to Health Maintenance Insurance [facility], [address] [facility] , [address] [facility] Care Teams Feed Handler Relationship Specialty Start Date End Date Mansoor Sparks MD [address] [address] PCP - General Family Medicine 06/18/22 Jesús Barrera MD [address] [address] Medical Oncologist/Insole Tack Puller Hand Hematology and Oncology 02/16/24
[2025-04-16] MEDS: SODIUM CHLORIDE 0.9% IV 1,000 ML 75 ML IV CONT (18:01)
--- NOTE | 2025-04-16 19:33 | WPCEDHO ---
ED Hand Off Checklist All vitals saved: Yes IV Site documented: Yes All med administrations documented: Yes Triage Note Triage Note Pt arrives to ed w/ c/o low 04/16/25 16:41 magnesium level from her PCP. Pt reports that she was ill last week with a cold and her doctor davide blood work. Pt denies pain, reports nausea. Allergies ibuprofen Allergy (Mild, Verified 08/08/21 17:17) Vomiting Family History (Last Reviewed 04/16/25 @ 17:31 by Haile Salinas MD) Mother Breast cancer Father Hypertension Sibling Cardiomyopathy Sibling Brain aneurysm Active Medications including assessments/comments Potassium Chloride 40 meq/ (Sodium Chloride) 520 mls @ 130 mls/hr IVPB ONCE STA Stop: 04/16/25 21:08 Last Admin: 04/16/25 17:25 Dose: 130 mls/hr Documented By: FADUMO Infusion/Titration Document 04/16/25 17:25 EZIOK (Rec: 04/16/25 17:25 HNK [id number]) Intake IV Site Peripheral Access Left Antecubital Container Volume 520 Waste Amount 0 Dosing Infusion Rate 130 Increase/Decrease Started Elapsed Time Elapsed Time ( 0m minutes) Sodium Chloride (Normal Saline Iv) 1,000 mls @ 75 mls/hr IV CONT .[id number] MARIO Last Admin: 04/16/25 18:01 Dose: 75 mls/hr Documented By: FADUMO Infusion/Titration Document 04/16/25 18:01 EZIOK (Rec: 04/16/25 18:02 [id number]) Intake IV Site Peripheral Access Left Antecubital Container Volume 1,000 Waste Amount 0 Dosing Infusion Rate 75 Cumulative Dose Not Applicable Increase/Decrease Started Elapsed Time Elapsed Time ( 0m minutes) Administered/Completed Medications Discontinued Medications Magnesium Sulfate (Magnesium Sulf 2 Gm/Water 50ml) 2 gm in 50 mls @ 25 mls/hr IVPB ONCE ONE Stop: 04/16/25 19:09 Last Infusion: 04/16/25 19:31 Dose: Infused Documented By: Admin: 04/16/25 17:25 Dose: 25 mls/hr Documented By: FADUMO Co-signed By: GLENYS Interventions/Assessments General Assessment Start: 04/16/25 16:40 Freq: Status: Active Protocol: Document 04/16/25 17:55 FADUMO (Rec: 04/16/25 18:05 HNK [id number]) GA Neurological Assessment Neurological Yes Assessment WNL Level of Alert,Awake Consciousness Arousable to Verbal Orientation Oriented to Person,Oriented to Place,Oriented to Time GA Cardiovascular Assessment Cardiovascular Yes Assessment WNL Cardiovascular None Symptoms Skin Description Normal Color Heart Sounds Normal Jugular Vein None Distention GA Gastrointestinal Assessment Gastrointestinal No Assessment WNL Gastrointestinal Nausea Symptoms Pattern Normal Flatus Present IV / Saline Lock, Insert Start: 04/16/25 16:43 Freq: STAT Status: Active Protocol: Document 04/16/25 17:25 HNK (Rec: 04/16/25 17:25 HNK [id number]) IV Assessment Peripheral Access Left Antecubital IV Catheter Access Initiated IV Insertion Date 04/16/25 IV Insertion Time 17:25 Catheter Gauge 18 IV Insertion 1 Attempts Ultrasound Used for No Placement IV Site Assessment WNL IV Care and WNL Maintenance Last Vital Signs Temperature 98.1 F 04/16/25 16:41 Pulse Rate 70 04/16/25 19:31 Respiratory Rate 16 04/16/25 19:31 Pulse Oximetry 96 04/16/25 19:31 Blood Pressure 108/69 04/16/25 19:31 Blood Pressure Mean 81 04/16/25 19:31 Oxygen Delivery Room Air 04/16/25 16:41 Weight 79.6 kg 04/16/25 16:41 Last Result - Abnormals Only Hgb 10.2 g/dL (12.0-15.0) L 04/16/25 16:45 Hct 36.2 % (37.0-47.0) L 04/16/25 16:45 MCV 73.9 fl (80-100) L 04/16/25 16:45 MCH 20.8 pg (26-34) L 04/16/25 16:45 MCHC 28.2 g/dl (32-36) L 04/16/25 16:45 RDW 17.3 % (11.5-14.5) H 04/16/25 16:45 Plt Count 481 k/mm3 (150-375) H D 04/16/25 16:45 Potassium 2.8 mmol/L (3.4-5.0) L* 04/16/25 16:45 Glucose 114 mg/dL (65-110) H 04/16/25 16:45 Magnesium 0.4 mg/dL (1.6-2.3) L 04/16/25 16:45 Most Recent Suicide Severity Rating Suicide Severity Rating NO RISK INDICATED 04/16/25 16:41
[2025-04-16] MEDS: ALBUTEROL SULFATE NEB 2.5 MG/3 ML INH INHALATION (19:38)
[2025-04-16] MEDS: IPRATROPIUM BR 0.02% INH SOLN 0.5 MG/2.5 ML VIAL INHALATION (19:38)
--- NOTE | 2025-04-16 20:01 | ADMGEN ---
This patient, Purvi Villarreal, was admitted to Medical Room 341-01. Patient/family oriented to hospital policies and general routines including ID bracelet, bed and alarms, visiting hours, pain management, procedures, bathroom and other care routines, personal items, smoking policy, room service/diet, and visiting hours. Information on how to activate the Rapid Response Team has been discussed. Patient/Family are encouraged to report perceived risks to care and to ask questions if they do not understand what they are told or what they should do.
--- NOTE | 2025-04-16 20:09 | PM.IMHP ---
H&P: HPI History of Present Illness Date/Time: 04/16/25 20:09 Chief Complaint: Abnormal lab Narrative: 34-year-old female past medical history of COPD, hypertension, depression, hyperlipidemia, hypokalemia, GERD presents to the ED on 04/16/2025 for abnormal lab. Patient states she has not been feeling well for the past 3 weeks with complaints of upper respiratory symptoms. Denies fevers or chills, chest pain, shortness of breath. She visited her PCP who ordered lab work which revealed electrolyte derangements. Patient was directed by her PCP to present to the ED. patient was found to be hypokalemic with a potassium 2.8 and a magnesium level of 0.4. 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 Shingles Anemia Anxiety Fractures lt 3rd finger, rt great toe Osteoporosis Arthritis DDD (degenerative disc disease) Back pain UTI (urinary tract infection) Abnormal uterine bleeding Irritable bowel Ulcer Hemorrhoids GERD (gastroesophageal reflux disease) Pneumonia Bronchitis Asthma COPD (chronic obstructive pulmonary disease) Depression Hypertension Surgical History Surgical History History of bunionectomy H/O: hysterectomy Family History Family History Mother Breast cancer Father Hypertension Sibling Cardiomyopathy Sibling Brain aneurysm Social History Social History Smoking packs per day: 1 Smoking cigarettes per day: 20.0 Years smoked: 20 Smoking pack-years: 20.00 Smoking status: Current every day smoker Tobacco type: cigarettes Alcohol intake: never Substance use: never Lack of Transportation: No Lack of Food: Never True Current Housing: I Have Housing Concerned About Future Housing: No Difficulty Paying Gas/Electric Bills: No Difficulty Paying for Meds: No Currently Unemployed: No Education: Grade School Difficulty w/ Childcare or Family Care: No Spiritual care concerns: No Meds Home Medications and Allergies Home Medications ?Medication ?Instructions ?Recorded ?Confirmed ?Type albuterol sulfate 2.5 mg/3 mL 2.5 mg inhalation TID PRN 08/08/21 04/16/25 History (0.083 %) solution for nebulization Shortness Of Breath atorvastatin 20 mg tablet 20 mg PO DAILY 08/08/21 04/16/25 History duloxetine 60 mg capsule,delayed 60 mg PO DAILY 08/08/21 04/16/25 History release losartan 100 mg tablet 100 mg PO DAILY 08/08/21 04/16/25 History omeprazole 40 mg capsule,delayed 40 mg PO BID 08/08/21 04/16/25 History release trazodone 300 mg tablet 300 mg PO HS 08/08/21 04/16/25 History aspirin 81 mg chewable tablet 81 mg PO DAILY@0800 30 days #30 08/11/21 04/16/25 Rx (Children's Aspirin) tabs fluticasone propionate 115 2 puff inhalation Q12HRT 30 days 08/11/21 04/16/25 Rx mcg-salmeterol 21 mcg/actuation #12 grams HFA inhaler (Advair HFA) carvedilol 25 mg tablet 25 mg PO Q12H 04/16/25 04/16/25 History nifedipine 30 mg tablet,extended 30 mg PO DAILY 04/16/25 04/16/25 History release Allergies Allergy/AdvReac Type Severity Reaction Status Date / Time ibuprofen Allergy Mild Vomiting Verified 04/16/25 20:13 Vital Signs Vital Signs - 24 hr 04/16/25 16:41 04/16/25 17:00 04/16/25 18:00 Temperature 98.1 F Pulse Rate 96 81 81 Respiratory Rate 20 16 14 Blood Pressure 129/80 123/77 122/67 Pulse Oximetry 98 97 96 Oxygen Delivery Room Air Fraction of Inspired Oxygen 04/16/25 19:01 04/16/25 19:31 04/16/25 19:41 Temperature Pulse Rate 69 70 72 Respiratory Rate 16 16 20 Blood Pressure 110/56 L 108/69 Pulse Oximetry 94 96 Oxygen Delivery Fraction of Inspired Oxygen 04/16/25 19:43 04/16/25 19:50 Temperature Pulse Rate 72 75 Respiratory Rate 20 20 Blood Pressure Pulse Oximetry 98 Oxygen Delivery Room Air Fraction of Inspired Oxygen 21 Exam Narrative: GENERAL: non-toxic appearing, in no acute distress. HEAD: Normocephalic, atraumatic. EYES: PERRLA. Conjunctivae clear. NOSE: Normal no drainage. THROAT: Pharynx clear, no exudate. NECK: Trachea midline. No adenopathy, no masses. RESPIRATORY: Airway patent, respirations nonlabored. CTA. CARDIOVASCULAR: Regular rate and rhythm BREASTS: Defer GASTROINTESTINAL: Abdomen is soft and nontender. No organomegaly. Bowel sounds normal in all quadrants. GENITOURINARY: Defer MUSCULOSKELETAL: Moves all extremities. No gross deformities. No calf tenderness. SKIN: Warm, dry, normal color. NEURO: A&O X4. Speech clear PSYCHIATRIC: Normal interaction H&P: Results Labs Labs: Short CBC 04/16/25 Range/Units 16:45 WBC 7.6 (4.5-10.0) K/mm3 Hgb 10.2 L (12.0-15.0) g/dL Hct 36.2 L (37.0-47.0) % Plt Count 481 H D (150-375) k/mm3 BMP 04/16/25 16:45 Sodium 137 Potassium 2.8 L* Chloride 99 Carbon Dioxide 29 BUN 7 Creatinine 0.79 Glucose 114 H Calcium 9.6 Liver Function 04/16/25 Range/Units 16:45 Total Bilirubin 0.5 (0.2-1.3) mg/dL AST 26 (14-36) U/L ALT 15 (6-35) U/L Alkaline Phosphatase 52 (38-126) U/L Albumin 4.2 (3.5-5.1) g/dL Assessment and Plan Assessment and plan (1) Acute hypokalemia: Code(s): E87.6 - Hypokalemia Status: Acute Assessment and Plan: Initial potassium 2.8. Patient does have history of hypokalemia. -treated with 40 mEq IV piggyback potassium chloride -repeat potassium 2.9--> repeat 40 mEq IV -potassium chloride 20 mEq daily p.o. -continue to trend (2) Hypomagnesemia: Code(s): E83.42 - Hypomagnesemia Status: Acute Assessment and Plan: Initial magnesium 0.4. -2 g IV magnesium -repeat magnesium 1.6 -continue to trend (3) Hypertension: Qualifiers: Hypertension type: primary hypertension Qualified Code(s): I10 - Essential (primary) hypertension Code(s): I10 - Essential (primary) hypertension Status: Chronic Assessment and Plan: Continue Cozaar, Coreg, nifedipine (4) COPD (chronic obstructive pulmonary disease): Code(s): J44.9 - Chronic obstructive pulmonary disease, unspecified Status: Chronic Assessment and Plan: COPD not in acute exacerbation -continue the Advair -DuoNeb q.6 hours Plan Diet: Regular GI prophylaxis: Pantoprazole DVT prophylaxis: SCDs lines/drains: PIV Fluids: NA Code status: Full Quality VTE Prophylaxis VTE prophylaxis: mechanical ordered Hospitalist MIPS Advance Care Plan I have confirmed that the patient's Advanced Care Plan is present, code status is documented, or surrogate decision maker is listed in patient medical record.: Yes Medication Reconciliation I have utilized all available resources to obtain, update and review the patients current medications (includes all prescriptions, OTC, herbals, cannabis, and nutritional supplements).: Yes
[2025-04-16 21:01] LABS: Anion Gap 5 mmol/L (4-12); Blood Urea Nitrogen 7 mg/dL (7-17); Calcium 8.8 mg/dL (8.4-10.2); Carbon Dioxide 29 mmol/L (22-30); Chloride 101 mmol/L (98-107); Estimated CRCL calculation 87 ml/min; Estimated Glomerular Filt Rate > 60; Glucose 100 mg/dL (65-110); Magnesium 1.6 mg/dL (1.6-2.3); Potassium 2.9 mmol/L (3.4-5.0); Sodium 135 mmol/L (137-145)
[2025-04-16] MEDS: PANTOPRAZOLE 40 MG TABLET PO (21:51)
[2025-04-16] MEDS: DULoxetine HCL 60 MG CAPSULE.DR PO (21:52)
[2025-04-17] VITALS (17 sets, daily range): BP systolic 113–124; BP diastolic 52–67; PULSE 65–90; RESP 16–20; TEMP 36–36.6; O2SAT 89–95
[2025-04-17] MEDS: ALBUTEROL SULFATE NEB 2.5 MG/3 ML INH INHALATION ×4 (02:21→19:43)
[2025-04-17] MEDS: IPRATROPIUM BR 0.02% INH SOLN 0.5 MG/2.5 ML VIAL INHALATION ×4 (02:21→19:43)
[2025-04-17] MEDS: POTASSIUM CHLORIDE INJ 40 MEQ in SODIUM CHLORIDE 0.9% IV 500 ML 130 MEQ IVPB ×2 (03:04→12:21)
[2025-04-17 05:00] LABS: Hematocrit 29.8 % (37.0-47.0); Hemoglobin 8.4 g/dL (12.0-15.0); Immature Granulocyte Percent A 0.3 % (0-0.5); Lymphocytes Absolute Auto 2.83 K/mm3 (0.9-3.2); Mean Corpuscular HGB Conc 28.2 g/dl (32-36); Mean Corpuscular Hemoglobin 20.7 pg (26-34); Mean Corpuscular Volume 73.4 fl (80-100); Nucleated Red Blood Cells Absolute Auto 0.000 K/mm3 (0.0-0.012); Nucleated Red Blood Cells Perc 0.0 % (0.0-0.2); Platelet Count Result 393 k/mm3 (150-375); Red Blood Count 4.06 M/mm3 (4.2-5.4); White Blood Count 7.4 K/mm3 (4.5-10.0)
[2025-04-17 05:23] LABS: Anion Gap 4 mmol/L (4-12); Blood Urea Nitrogen 5 mg/dL (7-17); Calcium 8.5 mg/dL (8.4-10.2); Carbon Dioxide 29 mmol/L (22-30); Chloride 104 mmol/L (98-107); Estimated CRCL calculation 81 ml/min; Estimated Glomerular Filt Rate > 60; Glucose 119 mg/dL (65-110); Potassium 2.9 mmol/L (3.4-5.0); Sodium 137 mmol/L (137-145)
[2025-04-17 05:35] LABS: Anisocytosis 1+; Hypochromasia 1+; Ovalocytes 1+
[2025-04-17 05:36] LABS: Burr Cells 1+; Schistocytes None Seen
[2025-04-17] MEDS: FLUTICASONE/SALMETEROL 115-21 MCG INHALER 1 PUFF 2 PUFF INHALATION ×2 (07:59→19:43)
--- NOTE | 2025-04-17 08:28 | PM.IMPN ---
Progress Note: A&P Assessment and Plan (1) Acute hypokalemia: Code(s): E87.6 - Hypokalemia Status: Acute Assessment and Plan: Initial potassium 2.8. Patient does have history of hypokalemia. -treated with 40 mEq IV piggyback potassium chloride -repeat potassium 2.9--> repeat 40 mEq IV -potassium chloride 20 mEq daily p.o. -repeat 04/17 2.9 -ordered potassium chloride 40 meq IV -repeat k level at 1800 (2) Hypomagnesemia: Code(s): E83.42 - Hypomagnesemia Status: Acute Assessment and Plan: Initial magnesium 0.4. -2 g IV magnesium -repeat magnesium 1.6 -continue to trend -ordered magnesium sulfate 2 grams IV -repeat magnesium level at 1800 (3) Hypertension: Qualifiers: Hypertension type: primary hypertension Qualified Code(s): I10 - Essential (primary) hypertension Code(s): I10 - Essential (primary) hypertension Status: Chronic Assessment and Plan: Continue Cozaar, Coreg, nifedipine (4) COPD (chronic obstructive pulmonary disease): Code(s): J44.9 - Chronic obstructive pulmonary disease, unspecified Status: Chronic Assessment and Plan: COPD not in acute exacerbation -continue the Advair -DuoNeb q.6 hours Plan Diet: Regular GI prophylaxis: Pantoprazole DVT prophylaxis: SCDs lines/drains: PIV Fluids: NA Code status: Full Subjective Date/time seen: 04/17/25 08:28 Interval history: Patient seen for a follow up visit. Patient lying in bed, in no acute distress. Patient denies acute pain. Patient's potassium this AM was 2.9, magnesium was 1.6 last evening. Order placed for 2 grams IVPB magnesium sulfate and 40 mEq IVPB potassium chloride. Patient continues on telemetry monitoring. Repeat BMP and magnesium level at 1800. Review of Systems Review of Systems: All systems reviewed & are unremarkable except as noted in HPI and below Exam Narrative: GENERAL: non-toxic appearing, in no acute distress. HEAD: Normocephalic, atraumatic. EYES: PERRLA. Conjunctivae clear. NOSE: Normal no drainage. THROAT: Pharynx clear, no exudate. NECK: Trachea midline. No adenopathy, no masses. RESPIRATORY: Airway patent, respirations nonlabored. CTA. CARDIOVASCULAR: Regular rate and rhythm BREASTS: Defer GASTROINTESTINAL: Abdomen is soft and nontender. No organomegaly. Bowel sounds normal in all quadrants. MUSCULOSKELETAL: Moves all extremities. No gross deformities. No calf tenderness. SKIN: Warm, dry, normal color. NEURO: A&O X4. Speech clear PSYCHIATRIC: Normal interaction Objective Data Vital Signs Vital Signs: Vital Signs - 24 hr 04/16/25 16:41 04/16/25 17:00 04/16/25 18:00 Temperature 98.1 F Pulse Rate 96 81 81 Respiratory Rate 20 16 14 Blood Pressure 129/80 123/77 122/67 Pulse Oximetry 98 97 96 Oxygen Delivery Room Air Fraction of Inspired Oxygen 04/16/25 19:01 04/16/25 19:31 04/16/25 19:41 Temperature Pulse Rate 69 70 72 Respiratory Rate 16 16 20 Blood Pressure 110/56 L 108/69 Pulse Oximetry 94 96 Oxygen Delivery Fraction of Inspired Oxygen 04/16/25 19:43 04/16/25 19:50 04/16/25 20:00 Temperature 97.6 F Pulse Rate 72 75 81 Respiratory Rate 20 20 20 Blood Pressure 126/66 Pulse Oximetry 98 94 Oxygen Delivery Room Air Fraction of Inspired Oxygen 21 04/16/25 20:00 04/16/25 20:25 04/16/25 21:51 Temperature Pulse Rate 96 81 Respiratory Rate Blood Pressure Pulse Oximetry Oxygen Delivery Room Air Fraction of Inspired Oxygen 04/17/25 00:00 04/17/25 00:00 04/17/25 02:21 Temperature 97.6 F Pulse Rate 81 83 75 Respiratory Rate 18 16 Blood Pressure 115/52 L Pulse Oximetry 92 Oxygen Delivery Fraction of Inspired Oxygen 04/17/25 02:28 04/17/25 04:00 04/17/25 04:00 Temperature 97.8 F Pulse Rate 79 71 73 Respiratory Rate 16 16 Blood Pressure 123/52 L Pulse Oximetry 95 Oxygen Delivery Fraction of Inspired Oxygen 04/17/25 07:59 04/17/25 07:59 04/17/25 08:11 Temperature Pulse Rate 73 69 Respiratory Rate 16 16 Blood Pressure Pulse Oximetry 93 Oxygen Delivery Room Air Fraction of Inspired Oxygen Intake/Output Intake/Output: Intake & Output 04/14/25 04/15/25 04/16/25 04/17/25 23:59 23:59 23:59 23:59 Intake Total 50 100 Balance 50 100 Meds/Results Medications: Active Medications Generic Name Dose Route Start Last Admin Trade Name Freq PRN Reason Stop Dose Admin Acetaminophen 650 mg 04/16/25 17:45 Acetaminophen 325 Mg Tablet PO Q4H PRN Mild Pain (1-3) or Fever Albuterol 2.5 mg 04/16/25 20:00 04/17/25 07:58 Albuterol Sulfate Neb 2.5 Mg/3 Ml Inh INHALATION 2.5 mg Q6HRT MARIO Administration Aspirin 81 mg 04/17/25 08:00 Aspirin 81 Mg Chewable Tablet PO DAILY@0800 MARIO Atorvastatin Calcium 20 mg 04/17/25 09:00 Atorvastatin 20 Mg Tablet PO DAILY MARIO Carvedilol 25 mg 04/16/25 21:00 04/16/25 21:51 Carvedilol 25 Mg Tablet PO 25 mg Q12HR MARIO Administration Duloxetine HCl 60 mg 04/16/25 21:40 04/16/25 21:52 Duloxetine Hcl 60 Mg Capsule.Dr PO 60 mg HS MARIO Administration Sodium Chloride 1,000 mls @ 75 mls/hr 04/16/25 17:45 04/16/25 18:01 Normal Saline Iv IV CONT 75 mls/hr .[id number] MARIO Administration Potassium Chloride 40 meq/ 520 mls @ 130 mls/hr 04/17/25 08:27 Sodium Chloride IVPB 04/17/25 12:26 ONCE ONE Magnesium Sulfate 2 gm in 50 mls @ 25 mls/hr 04/17/25 08:27 Magnesium Sulf 2 Gm/Water 50ml IVPB 04/17/25 10:26 ONCE ONE Ipratropium [place] 0.5 mg 04/16/25 20:00 04/17/25 07:58 Ipratropium Br 0.02% Inh Soln 0.5 Mg/2.5 Ml Vial INHALATION 0.5 mg Q6HRT MARIO Administration Losartan Potassium 100 mg 04/17/25 09:00 Losartan Potassium 100 Mg Tablet PO DAILY MARIO Nifedipine 30 mg 04/17/25 09:00 Nifedipine 30 Mg Tab.Er.24 PO DAILY [facility] Ondansetron HCl 4 mg 04/16/25 17:45 Ondansetron Inj 4 Mg/2 Ml Vial IV PUSH Q4H PRN Nausea Pantoprazole Sodium 40 mg 04/16/25 21:45 04/16/25 21:51 Pantoprazole 40 Mg Tablet PO 40 mg Q12HR MARIO Administration Potassium Chloride 20 meq 04/17/25 08:00 Potassium Chloride 20 Meq Er Tablet PO DAILY@0800 [facility] Fluticasone/Salmeterol 2 puff 04/17/25 08:00 04/17/25 07:59 Fluticasone/Salmeterol 115-21 Mcg Inhaler 1 Puff INHALATION 2 puff Q12HRT MARIO Administration Trazodone HCl 300 mg 04/16/25 21:00 04/16/25 21:50 Trazodone Hcl 50 Mg Tablet PO 300 mg HS MARIO Administration Labs Labs: Laboratory Results - last 24 hr 04/16/25 04/16/25 04/17/25 16:45 20:30 04:34 WBC 7.6 7.4 RBC 4.90 4.06 L Hgb 10.2 L 8.4 L Hct 36.2 L 29.8 L MCV 73.9 L 73.4 L MCH 20.8 L 20.7 L MCHC 28.2 L 28.2 L RDW 17.3 H 17.5 H Plt Count 481 H D 393 H MPV 9.1 9.5 Immature Gran % (Auto) 0.4 0.3 Neut % (Auto) 55.1 50.2 Lymph % (Auto) 34.0 38.1 [place] % (Auto) 5.9 6.5 Eos % (Auto) 3.7 4.2 Baso % (Auto) 0.9 0.7 Lymph # (Auto) 2.60 2.83 [place] # (Auto) 0.5 0.5 Eos # (Auto) 0.3 0.3 Baso # (Auto) 0.1 0.1 Abs Immat Gran (auto) 0.03 0.02 Absolute Neuts (auto) 4.2 3.7 Absolute Nucleated RBC 0.000 0.000 Band Neutrophils % Not Reportable Not Reportable Nucleated RBC % 0.0 0.0 Platelet Estimate Increased Slightly increased Hypochromasia 1+ 1+ Anisocytosis 1+ 1+ Microcytosis Occasional Ovalocytes Occasional 1+ Spike Cells 1+ Schistocytes None seen None seen Sodium 137 135 L 137 Potassium 2.8 L* 2.9 L 2.9 L Chloride 99 101 104 Carbon Dioxide 29 29 29 Anion Gap 9 5 4 BUN 7 7 5 L Creatinine 0.79 0.60 L 0.65 L Estim Creat Clear Calc 68 87 81 Estimated GFR > 60 > 60 > 60 Glucose 114 H 100 119 H Calcium 9.6 8.8 8.5 Magnesium 0.4 L 1.6 Total Bilirubin 0.5 AST 26 ALT 15 Alkaline Phosphatase 52 Total Protein 7.5 Albumin 4.2 Lipase 61 Quality VTE Prophylaxis VTE prophylaxis: mechanical ordered
[2025-04-17] MEDS: POTASSIUM CHLORIDE 20 MEQ ER TABLET PO (09:48)
[2025-04-17] MEDS: LOSARTAN POTASSIUM 100 MG TABLET PO (09:48)
[2025-04-17] MEDS: ASPIRIN 81 MG CHEWABLE TABLET PO (09:48)
[2025-04-17] MEDS: ATORVASTATIN 20 MG TABLET PO (09:49)
[2025-04-17] MEDS: PANTOPRAZOLE 40 MG TABLET PO ×2 (09:49→21:31)
[2025-04-17] MEDS: MAGNESIUM SULF 2 GM/WATER 50ML 2 GM/50 ML BAG IVPB (09:59)
[2025-04-17] MEDS: SODIUM CHLORIDE 0.9% IV 1,000 ML 75 ML IV CONT (12:20)
[2025-04-17 19:15] LABS: Anion Gap 6 mmol/L (4-12); Blood Urea Nitrogen 8 mg/dL (7-17); Calcium 9.1 mg/dL (8.4-10.2); Carbon Dioxide 26 mmol/L (22-30); Chloride 102 mmol/L (98-107); Estimated CRCL calculation 85 ml/min; Estimated Glomerular Filt Rate > 60; Glucose 107 mg/dL (65-110); Magnesium 2.0 mg/dL (1.6-2.3); Potassium 3.4 mmol/L (3.4-5.0); Sodium 134 mmol/L (137-145)
[2025-04-17] MEDS: DULoxetine HCL 60 MG CAPSULE.DR PO (21:31)
[2025-04-18] VITALS (20 sets, daily range): BP systolic 123–132; BP diastolic 61–70; PULSE 64–92; RESP 18–20; TEMP 36.1–36.6; O2SAT 91–98
[2025-04-18] MEDS: ALBUTEROL SULFATE NEB 2.5 MG/3 ML INH INHALATION (01:01)
[2025-04-18] MEDS: IPRATROPIUM BR 0.02% INH SOLN 0.5 MG/2.5 ML VIAL INHALATION (01:01)
[2025-04-18 05:10] LABS: Hematocrit 29.3 % (37.0-47.0); Hemoglobin 8.3 g/dL (12.0-15.0); Immature Granulocyte Percent A 0.3 % (0-0.5); Lymphocytes Absolute Auto 2.36 K/mm3 (0.9-3.2); Mean Corpuscular HGB Conc 28.3 g/dl (32-36); Mean Corpuscular Hemoglobin 20.9 pg (26-34); Mean Corpuscular Volume 73.8 fl (80-100); Nucleated Red Blood Cells Absolute Auto 0.000 K/mm3 (0.0-0.012); Nucleated Red Blood Cells Perc 0.0 % (0.0-0.2); Platelet Count Result 395 k/mm3 (150-375); Red Blood Count 3.97 M/mm3 (4.2-5.4); White Blood Count 7.7 K/mm3 (4.5-10.0)
[2025-04-18 05:32] LABS: Alanine Aminotransferase 9 U/L (6-35); Albumin Level 3.2 g/dL (3.5-5.1); Alkaline Phosphatase 61 U/L (38-126); Anion Gap 4 mmol/L (4-12); Aspartate Amino Transferase 16 U/L (14-36); Bilirubin,Total 0.3 mg/dL (0.2-1.3); Blood Urea Nitrogen 8 mg/dL (7-17); Calcium 8.8 mg/dL (8.4-10.2); Carbon Dioxide 25 mmol/L (22-30); Chloride 105 mmol/L (98-107); Estimated CRCL calculation 93 ml/min; Estimated Glomerular Filt Rate > 60; Glucose 105 mg/dL (65-110); Magnesium 1.7 mg/dL (1.6-2.3); Potassium 3.5 mmol/L (3.4-5.0); Sodium 134 mmol/L (137-145); Total Protein 6.0 g/dL (6.3-8.2)
[2025-04-18 05:44] LABS: Burr Cells 2+
[2025-04-18 05:45] LABS: Hypochromasia 1+; Ovalocytes 1+
[2025-04-18 05:46] LABS: Schistocytes None Seen
--- NOTE | 2025-04-18 07:51 | P.PNIM_ITS ---
Progress Note: A&P Assessment and Plan (1) Acute hypokalemia: Code(s): E87.6 - Hypokalemia Status: Acute Assessment and Plan: Initial potassium 2.8. Patient does have history of hypokalemia. -treated with 40 mEq IV piggyback potassium chloride x multiple doses -repeat potassium 2.9--> repeat 40 mEq IV -potassium chloride 20 mEq daily p.o. -potassium level today 3.5 -check TSH, serum osmolality, UA, urine osmolality, random urine creatinine, random urine potassium (2) Hypomagnesemia: Code(s): E83.42 - Hypomagnesemia Status: Acute Assessment and Plan: Initial magnesium 0.4. -2 g IV magnesium x multiple doses -repeat magnesium 1.6 -continue to trend -magnesium today 1.7 (3) Hypertension: Qualifiers: Hypertension type: primary hypertension Qualified Code(s): I10 - Essential (primary) hypertension Code(s): I10 - Essential (primary) hypertension Status: Chronic Assessment and Plan: Continue Cozaar, Coreg, nifedipine (4) COPD (chronic obstructive pulmonary disease): Code(s): J44.9 - Chronic obstructive pulmonary disease, unspecified Status: Chronic Assessment and Plan: COPD not in acute exacerbation -continue the Advair -DuoNeb q.6 hours Plan Diet: Regular GI prophylaxis: Pantoprazole DVT prophylaxis: SCDs lines/drains: PIV Fluids: NA Code status: Full Subjective Date/time seen: 04/18/25 07:51 Interval history: Patient seen for a follow up visit. Patient denies acute pain. Patients potassium level on today's labs is 3.5, magnesium is 1.7. Patient continues on PO potassium supplement. Verified with patient that she has not taken any OTC supplements, diet pills or diuretics. Patient denies using any of these products. Patient reports she was not on a potassium supplement at home. Patient denies any signs of bleeding including bloody or coffee ground emesis, dark or black stools. Check additional labs today. Review of Systems Review of Systems: All systems reviewed & are unremarkable except as noted in HPI and below Exam Narrative: GENERAL: non-toxic appearing, in no acute distress. HEAD: Normocephalic, atraumatic. EYES: PERRLA. Conjunctivae clear. NOSE: Normal no drainage. THROAT: Pharynx clear, no exudate. NECK: Trachea midline. No adenopathy, no masses. RESPIRATORY: Airway patent, respirations nonlabored. CTA. CARDIOVASCULAR: Regular rate and rhythm BREASTS: Defer GASTROINTESTINAL: Abdomen is soft and nontender. No organomegaly. Bowel sounds normal in all quadrants. MUSCULOSKELETAL: Moves all extremities. No gross deformities. No calf ten derness. SKIN: Warm, dry, normal color. NEURO: A&O X4. Speech clear PSYCHIATRIC: Normal interaction Objective Data Vital Signs Vital Signs: Vital Signs - 24 hr 04/17/25 07:59 04/17/25 07:59 04/17/25 08:00 Temperature Pulse Rate 73 65 Respiratory Rate 16 Blood Pressure Pulse Oximetry 93 Oxygen Delivery Room Air 04/17/25 08:11 04/17/25 08:36 04/17/25 09:45 Temperature 97.1 F L Pulse Rate 69 68 Respiratory Rate 16 18 Blood Pressure 124/55 L Pulse Oximetry 95 94 Oxygen Delivery Room Air 04/17/25 09:49 04/17/25 12:00 04/17/25 12:00 Temperature 97.3 F L Pulse Rate 73 77 81 Respiratory Rate 18 Blood Pressure 120/67 Pulse Oximetry 94 Oxygen Delivery 04/17/25 14:06 04/17/25 14:19 04/17/25 16:00 Temperature 96.8 F L Pulse Rate 72 71 72 Respiratory Rate 16 16 16 Blood Pressure 113/65 Pulse Oximetry 89 L Oxygen Delivery 04/17/25 16:00 04/17/25 19:43 04/17/25 19:58 Temperature Pulse Rate 72 85 88 Respiratory Rate 20 20 Blood Pressure Pulse Oximetry Oxygen Delivery 04/17/25 20:00 04/17/25 20:00 04/18/25 00:00 Temperature 97.1 F L 97.8 F Pulse Rate 90 88 92 Respiratory Rate 20 20 Blood Pressure 121/63 131/70 Pulse Oximetry 91 92 Oxygen Delivery 04/18/25 00:00 04/18/25 01:02 04/18/25 01:11 Temperature Pulse Rate 70 70 74 Respiratory Rate 20 20 Blood Pressure Pulse Oximetry Oxygen Delivery 04/18/25 04:00 04/18/25 04:00 Temperature 97.7 F Pulse Rate 75 64 Respiratory Rate 20 Blood Pressure 125/61 Pulse Oximetry 94 Oxygen Delivery Intake/Output Intake/Output: Intake & Output 04/15/25 04/16/25 04/17/25 04/18/25 23:59 23:59 23:59 23:59 Intake Total 50 2765 100 Balance 50 2765 100 Meds/Results Medications: Active Medications Generic Name Dose Route Start Last Admin Trade Name Freq PRN Reason Stop Dose Admin Acetaminophen 650 mg 04/16/25 17:45 Acetaminophen 325 Mg Tablet PO Q4H PRN Mild Pain (1-3) or Fever Albuterol/Ipratropium 3 ml 04/18/25 08:00 Ipratropium 0.5 Mg/Albuterol Sulfate 2.5 Mg (Base) Ampul.Neb 3 Ml INHALATION Q6HRT MARIO Aspirin 81 mg 04/17/25 08:00 04/17/25 09:48 Aspirin 81 Mg Chewable Tablet PO 81 mg DAILY@0800 MARIO Administration Atorvastatin Calcium 20 mg 04/17/25 09:00 04/17/25 09:49 Atorvastatin 20 Mg Tablet PO 20 mg DAILY MARIO Administration Carvedilol 25 mg 04/16/25 21:00 04/17/25 21:31 Carvedilol 25 Mg Tablet PO 25 mg Q12HR MARIO Administration Duloxetine HCl 60 mg 04/16/25 21:40 04/17/25 21:31 Duloxetine Hcl 60 Mg Capsule.Dr PO 60 mg HS MARIO Administration Sodium Chloride 1,000 mls @ 75 mls/hr 04/16/25 17:45 04/17/25 19:00 Normal Saline Iv IV CONT 0 mls/hr .[id number] MARIO Infusion Losartan Potassium 100 mg 04/17/25 09:00 04/17/25 09:48 Losartan Potassium 100 Mg Tablet PO 100 mg DAILY MARIO Administration Nifedipine 30 mg 04/17/25 09:00 04/17/25 09:49 Nifedipine 30 Mg Tab.Er.24 PO 30 mg DAILY MARIO Administration Ondansetron HCl 4 mg 04/16/25 17:45 Ondansetron Inj 4 Mg/2 Ml Vial IV PUSH Q4H PRN Nausea Pantoprazole Sodium 40 mg 04/16/25 21:45 04/17/25 21:31 Pantoprazole 40 Mg Tablet PO 40 mg Q12HR MARIO Administration Potassium Chloride 20 meq 04/17/25 08:00 04/17/25 09:48 Potassium Chloride 20 Meq Er Tablet PO 20 meq DAILY@0800 MARIO Administration Fluticasone/Salmeterol 2 puff 04/17/25 08:00 04/17/25 19:43 Fluticasone/Salmeterol 115-21 Mcg Inhaler 1 Puff INHALATION 2 puff Q12HRT MARIO Administration Trazodone HCl 300 mg 04/16/25 21:00 04/17/25 21:30 Trazodone Hcl 50 Mg Tablet PO 300 mg HS MARIO Administration Labs Labs: Laboratory Results - last 24 hr 04/17/25 04/18/25 18:11 04:44 WBC 7.7 RBC 3.97 L Hgb 8.3 L Hct 29.3 L MCV 73.8 L MCH 20.9 L MCHC 28.3 L RDW 17.5 H Plt Count 395 H MPV 9.5 Immature Gran % (Auto) 0.3 Neut % (Auto) 58.2 Lymph % (Auto) 30.7 [place] % (Auto) 6.3 Eos % (Auto) 3.8 Baso % (Auto) 0.7 Lymph # (Auto) 2.36 [place] # (Auto) 0.5 Eos # (Auto) 0.3 Baso # (Auto) 0.1 Abs Immat Gran (auto) 0.02 Absolute Neuts (auto) 4.5 Absolute Nucleated RBC 0.000 Band Neutrophils % Not Reportable Nucleated RBC % 0.0 Platelet Estimate Slightly increased Hypochromasia 1+ Ovalocytes 1+ Spike Cells 2+ Schistocytes None seen Sodium 134 L 134 L Potassium 3.4 3.5 Chloride 102 105 Carbon Dioxide 26 25 Anion Gap 6 4 BUN 8 8 Creatinine 0.62 L 0.56 L Estim Creat Clear Calc 85 93 Estimated GFR > 60 > 60 Glucose 107 105 Calcium 9.1 8.8 Magnesium 2.0 1.7 Total Bilirubin 0.3 AST 16 ALT 9 Alkaline Phosphatase 61 Total Protein 6.0 L Albumin 3.2 L Quality VTE Prophylaxis VTE prophylaxis: mechanical ordered
[2025-04-18] MEDS: IPRATROPIUM 0.5 MG/ALBUTEROL SULFATE 2.5 MG (BASE) AMPUL.NEB 3 ML INHALATION ×3 (08:04→20:54)
[2025-04-18] MEDS: FLUTICASONE/SALMETEROL 115-21 MCG INHALER 1 PUFF 2 PUFF INHALATION ×2 (08:04→20:54)
[2025-04-18 08:21] LABS: Iron 28 ug/dL (37-170)
[2025-04-18 08:31] LABS: Percent Iron Saturation 7 % (20-50)
[2025-04-18 09:02] LABS: Ferritin 4.89 ng/mL (11.1-264)
[2025-04-18 09:13] LABS: Vitamin B12 > 1000.0 pg/mL (239-931)
[2025-04-18 09:17] LABS: Add Urine Microscopic? NO; Appearance Urine Clear (Clear); Glucose Urine UA Negative (Negative); Leukocyte Esterase Ur Negative LEU/UL (Negative); Nitrate Urine Negative (Negative); Specific Grav Ur 1.011 (1.001-1.035)
[2025-04-18] MEDS: PANTOPRAZOLE 40 MG TABLET PO ×2 (09:48→21:12)
[2025-04-18] MEDS: ASPIRIN 81 MG CHEWABLE TABLET PO (09:48)
[2025-04-18] MEDS: LOSARTAN POTASSIUM 100 MG TABLET PO (09:48)
[2025-04-18] MEDS: POTASSIUM CHLORIDE 20 MEQ ER TABLET PO (09:48)
[2025-04-18] MEDS: ATORVASTATIN 20 MG TABLET PO (09:48)
[2025-04-18 13:21] LABS: Thyroid Stimulating Hormone Reflex 6.890 uIU/mL (0.465-4.68)
[2025-04-18 14:25] LABS: Free T4 Free Thyroxine Reflex 1.11 ng/dL (0.78-2.19)
[2025-04-18 15:13] LABS: Total Triiodothyronine (T3) 0.98 NG/ML (0.82-1.58)
[2025-04-18] MEDS: DULoxetine HCL 60 MG CAPSULE.DR PO (21:12)
[2025-04-19] VITALS (11 sets, daily range): BP systolic 130–131; BP diastolic 70–83; PULSE 60–84; RESP 18–20; TEMP 35.8–36.2; O2SAT 93–97
[2025-04-19] MEDS: IPRATROPIUM 0.5 MG/ALBUTEROL SULFATE 2.5 MG (BASE) AMPUL.NEB 3 ML INHALATION ×3 (01:19→13:15)
[2025-04-19 06:47] LABS: Hematocrit 30.9 % (37.0-47.0); Hemoglobin 8.6 g/dL (12.0-15.0); Immature Granulocyte Percent A 0.1 % (0-0.5); Lymphocytes Absolute Auto 2.21 K/mm3 (0.9-3.2); Mean Corpuscular HGB Conc 27.8 g/dl (32-36); Mean Corpuscular Hemoglobin 20.7 pg (26-34); Mean Corpuscular Volume 74.5 fl (80-100); Nucleated Red Blood Cells Absolute Auto 0.000 K/mm3 (0.0-0.012); Nucleated Red Blood Cells Perc 0.0 % (0.0-0.2); Platelet Count Result 399 k/mm3 (150-375); Red Blood Count 4.15 M/mm3 (4.2-5.4); White Blood Count 7.0 K/mm3 (4.5-10.0)
[2025-04-19 07:16] LABS: Alanine Aminotransferase 8 U/L (6-35); Albumin Level 3.4 g/dL (3.5-5.1); Alkaline Phosphatase 57 U/L (38-126); Anion Gap 4 mmol/L (4-12); Aspartate Amino Transferase 18 U/L (14-36); Bilirubin,Total 0.3 mg/dL (0.2-1.3); Blood Urea Nitrogen 7 mg/dL (7-17); Calcium 9.1 mg/dL (8.4-10.2); Carbon Dioxide 26 mmol/L (22-30); Chloride 104 mmol/L (98-107); Estimated CRCL calculation 87 ml/min; Estimated Glomerular Filt Rate > 60; Glucose 109 mg/dL (65-110); Magnesium 1.2 mg/dL (1.6-2.3); Potassium 3.5 mmol/L (3.4-5.0); Sodium 134 mmol/L (137-145); Total Protein 6.4 g/dL (6.3-8.2)
[2025-04-19] MEDS: FLUTICASONE/SALMETEROL 115-21 MCG INHALER 1 PUFF 2 PUFF INHALATION (07:21)
[2025-04-19 07:45] LABS: Microcytosis 1+ (NORMAL)
[2025-04-19 07:46] LABS: Ovalocytes 1+; Schistocytes None Seen
[2025-04-19 07:47] LABS: Hypochromasia 1+; Poikilocytosis Occasional
[2025-04-19] MEDS: ATORVASTATIN 20 MG TABLET PO (08:41)
[2025-04-19] MEDS: ASPIRIN 81 MG CHEWABLE TABLET PO (08:41)
[2025-04-19] MEDS: PANTOPRAZOLE 40 MG TABLET PO (08:41)
[2025-04-19] MEDS: POTASSIUM CHLORIDE 20 MEQ ER TABLET PO (08:41)
[2025-04-19] MEDS: LOSARTAN POTASSIUM 100 MG TABLET PO (08:41)
[2025-04-19] MEDS: MAGNESIUM SULF 2 GM/WATER 50ML 2 GM/50 ML BAG IVPB (12:37)
--- NOTE | 2025-04-19 14:17 | P.DS_ITS ---
DS: Admitting Diagnosis Discharge Date 04/19/2025 Admitting Diagnosis Hypokalemia/hypomagnesiumia/anemia/COPD DS: Discharge Diagnosis Discharge Diagnosis (1) Acute hypokalemia: Code(s): E87.6 - Hypokalemia Status: Acute (2) Hypomagnesemia: Code(s): E83.42 - Hypomagnesemia Status: Acute (3) Hypertension: Qualifiers: Hypertension type: primary hypertension Qualified Code(s): I10 - Essential (primary) hypertension Code(s): I10 - Essential (primary) hypertension Status: Chronic (4) COPD (chronic obstructive pulmonary disease): Code(s): J44.9 - Chronic obstructive pulmonary disease, unspecified Status: Chronic DS: Summary Hospital Course Reason for hospitalization: Hypokalemia/hypomagnesiumia/anemia/COPD Hospital Course: Admission: Patient was a 34-year-old female past medical history of COPD, hypertension, depression, hyperlipidemia, hypokalemia, GERD presents to the ED on 04/16/2025 for abnormal lab. Patient states she has not been feeling well for the past 3 weeks with complaints of upper respiratory symptoms. Denies fevers or chills, chest pain, shortness of breath. She visited her PCP who ordered lab work which revealed electrolyte derangements. Patient was directed by her PCP to present to the ED. patient was found to be hypokalemic with a potassium 2.8 and a magnesium level of 0.4. In the ED: Lab significant for anemia with hemoglobin 10.2 hematocrit 36.2, platelet count 481, potassium 2.8, magnesium 0.4. Hospital Course: Patient was admitted to the medical unit for treatment of his electrolyte derangements started on potassium and magnesium supplements. Patient also found to have anemia which remained stable no evidence of an acute bleed. Patient reported she has a history of anemia and was being seen outpatient the [facility] for Hematology stopped going. Patient reports she has attempted to take iron supplements in the house but it is certainly on his medication. Patient reported her primary has sent in a referral once again for Hematology and to set up outpatient iron transfusions. Patient electrolytes stabilized during admission. Patient was seen and assessed day of discharge in no acute distress and no new complaints. Patient to be continued on oral potassium and magnesium supplements, will also order ferrous sulfate with instructions take with food to avoid nausea. Patient to follow-up with PCP and referral to photonics engineering technician outpatient. Status at Discharge Functional status at discharge: independent ambulation Time Spent with Patient Time attestation: Total time spent providing and/or coordinating discharge services: Time spent: Greater than 30 minutes Exam Const: General: comfortable and no acute distress HENMT: Ears: TM's normal bilaterally Mouth: Yes moist mucous membranes Eyes: General: appearance normal, both eyes and all related structures Sclera: sclerae normal Pupils: Equal, round and reactive pupils present Neck: Neck: supple and no JVD Resp: Effort & Inspection: normal respiratory effort Auscultation: clear to auscultation bilaterally Cardio: Rate: regular rate Rhythm: regular rhythm GI: GI Palp: Yes Soft to palpation Auscultation: normal bowel sounds : External Female Exam: normal external appearance Skin: General skin exam: normal color and no rashes or lesions noted Wounds: no wounds Neuro: General: gait normal Motor exam (neuro): 5/5 motor strength present throughout Sensory Exam: normal sensation Extrem: General: normal to inspection Psych: Mental Status: mental status grossly normal Affect: normal affect DS: Data Data Completed and Pending Labs on day of discharge: Labs from last 24 hours 04/19/25 04/18/25 06:12 04:44 WBC 7.0 RBC 4.15 L Hgb 8.6 L Hct 30.9 L MCV 74.5 L MCH 20.7 L MCHC 27.8 L RDW 17.4 H Plt Count 399 H MPV 9.6 Immature Gran % (Auto) 0.1 Neut % (Auto) 56.5 Lymph % (Auto) 31.8 [place] % (Auto) 6.3 Eos % (Auto) 4.6 H Baso % (Auto) 0.7 Lymph # (Auto) 2.21 [place] # (Auto) 0.4 Eos # (Auto) 0.3 Baso # (Auto) 0.1 Abs Immat Gran (auto) 0.01 Absolute Neuts (auto) 3.9 Absolute Nucleated RBC 0.000 Band Neutrophils % Not Reportable Nucleated RBC % 0.0 Platelet Estimate Slightly increased Hypochromasia 1+ Poikilocytosis Occasional Microcytosis 1+ Ovalocytes 1+ Schistocytes None seen Sodium 134 L Potassium 3.5 Chloride 104 Carbon Dioxide 26 Anion Gap 4 BUN 7 Creatinine 0.60 L Estim Creat Clear Calc 87 Estimated GFR > 60 Glucose 109 Calcium 9.1 Magnesium 1.2 L Total Bilirubin 0.3 AST 18 ALT 8 Alkaline Phosphatase 57 Total Protein 6.4 Albumin 3.4 L Free T4 1.11 Total T3 0.98 Random Cortisol 8.30 Discharge Plan Discharge Attending physician on discharge: Durga Platt Consulting providers: Jasmin Fleming Discharging Clinician: Jasmin Fleming Anticipated Discharge Date/Time: 04/19/25 14:29 Patient Disposition: Home Activity: may shower Diet: as tolerated and other - see discharge instructions Discharge Instructions: 1). Anemia * I encourage taking the ferrous sulfate oral supplemental and take about 30 minutes after a meal. * I have prescribed sublingual Zofran to help with any nausea may incur * Follow-up with your referral to Hematology for possible outpatient iron infusions * Recommend iron enriched foods 2). Hypokalemia * I have prescribed an oral potassium supplement please take as indicated 3). Hypomagnesium * I have prescribed daily magnesium supplement please take as indicated 4). COPD * Continue PRN inhaler * recommend stop smoking How can you care for yourself at home? ? Keep track of any new symptoms or changes in your symptoms. ? Rest until you feel better. ? Be safe with medicines. Take your medicines exactly as prescribed. Call your doctor if you think you are having a problem with your medicine. ? Do not drive after taking a prescription pain medicine. ? Ensure to follow-up with primary care physician as indicated and provide updated medication list provided to you at discharge. When should you call for help? Call 911 anytime you think you may need emergency care. For example, call if: ? You passed out (lost consciousness). Call your doctor now or seek immediate medical care if: ? You have new symptoms like fever, difficulty breathing, Chest pain, vomiting, or rash. ? You have new or different pain. ? You are confused and are having trouble thinking clearly. ? Your symptoms are getting worse. Watch closely for changes in your health, and be sure to contact your doctor if: ? You do not get better as expected. Patient Instructions: Antibiotic Form, How to Stop Smoking (DC), Hypokalemia (DC), COPD (Chronic Obstructive Pulmonary Disease) (DC), Hypomagnesemia (DC), Anemia (DC) Patient Language: Hebrew Stand Alone Forms: General Discharge Information Follow-up/Referrals: Latasha,Mansoor Talbot MD [Primary Care Provider] - Keep Reg. Scheduled Appt. Referral Note: Will need referral to Hematology Discharge Medications: New magnesium oxide 400 mg (241.3 mg magnesium) Tablet 400 mg PO DAILY Qty: 30 0RF ferrous sulfate 325 mg (65 mg iron) Tablet,Delayed Release (Dr/Ec) 325 mg PO BID@1200,1700 Qty: 60 0RF potassium chloride [Klor-Con M20] 20 mEq tablet,ER particles/crystals 20 meq PO DAILY Qty: 30 0RF ondansetron 4 mg tablet,disintegrating 4 mg PO Q8H PRN (Reason: nausea and vomiting) Qty: 30 0RF Continued carvedilol 25 mg tablet 25 mg PO Q12H nifedipine 30 mg tablet extended release 30 mg PO DAILY atorvastatin 20 mg tablet 20 mg PO DAILY albuterol sulfate 2.5 mg /3 mL (0.083 %) solution for nebulization 2.5 mg inhalation TID PRN (Reason: Shortness Of Breath) omeprazole 40 mg capsule,delayed release(DR/EC) 40 mg PO BID trazodone 300 mg tablet 300 mg PO HS losartan 100 mg tablet 100 mg PO DAILY duloxetine 60 mg capsule,delayed release(DR/EC) 60 mg PO DAILY aspirin [Children's Aspirin] 81 mg Tablet,Chewable 81 mg PO DAILY@0800 30 Days Qty: 30 0RF fluticasone propion-salmeterol [Advair HFA] 115-21 mcg/actuation Hfa Aerosol Inhaler 2 puff inhalation Q12HRT 30 Days Qty: 12 0RF Date of admission: 04/16/25 17:45 Primary Care Provider: LatashaMansoor Admitting Provider: Gopi Sanches Attending physician on admission: Gopi Sanches Condition: Stable Quality VTE Prophylaxis VTE prophylaxis: mechanical ordered -Patient's previous records reviewed on admission -ER notes reviewed in detail on admission -discussed all findings and current treatment plan with patient/Family/POA -Consultations reviewed for recommendations -Patient's disposition for safe discharge discussed with medical case manager -radiology imaging, EKG and test results I have personally reviewed and interpreted unless otherwise specified Dictation performed by [employer] direct speech recognition software, therefore manufacturing baker variants and typographical errors may occur. Hospitalist MIPS Heart Failure (Exclusion) Patient has history of Heart Transplant or Left Ventricular Assistive Device?: No IF YES, STOP HERE Heart Failure (Qualifier) Patient has current or prior documentation of LVEF less than or equal to 40%, or mod/servere depressed LVSF?: No IF NO, STOP HERE
[2025-04-23 09:07] LABS: Osmolality, Urine 414 mOsmol/kg (.)
[2025-04-23 16:07] LABS: Osmolality, Serum 277 mOsmol/kg (275-295)
== END 2025-04-19 15:40 | disposition home or self-care (01) | DRG 425 ==
LOC: ANHED 17:36 → ANH3MEDSUR 18:41 → ANH3MED 19:33
PROVIDERS: Nurse Practitioner Adult Health; Student in an Organized Health Care Education/Training Program; Admitting Provider Internal Medicine; Emergency Provider Family Medicine; PCP Family Medicine; Visit Provider Nurse Practitioner Family
DX: E87.6 Hypokalemia (principal); E83.42 Hypomagnesemia; E78.5 Hyperlipidemia, unspecified; I10 Essential (primary) hypertension; J44.9 Chronic obstructive pulmonary disease, unspecified; M81.0 Age-related osteoporosis without current pathological fracture; H91.91 Unspecified hearing loss, right ear; D50.9 Iron deficiency anemia, unspecified; K21.9 Gastro-esophageal reflux disease without esophagitis; F32.A Depression, unspecified; F41.9 Anxiety disorder, unspecified; F17.210 Nicotine dependence, cigarettes, uncomplicated; Z79.82 Long term (current) use of aspirin; Z79.51 Long term (current) use of inhaled steroids; Z87.19 Personal history of other diseases of the digestive system
CPT/HCPCS: 36415; 80048; 80053; 81003; 82533; 82570; 82607; 82728; 82746; 83540; 83550; 83690; 83735; 83930; 83935; 84133; 84439; 84443; 84480; 85025; 93005; 94640; 96365; 99285; A9270; J3475; J3480; J7030; J7040

== ENCOUNTER 2025-05-19 12:40 | Emergency (ER) | payer OTHER, SELFPAY ==
[2025-05-19] VITALS (13 sets, daily range): BP systolic 95–165; BP diastolic 75–116; PULSE 75–111; RESP 11–23; TEMP 35.4–36.8; O2SAT 97–100
--- OUTSIDE RECORDS SUMMARY | 2025-05-19 12:44 | XMS_ITS | Clinical Summary ---
Author Organization [facility] Address [address] [place] [id number] Care Team Providers Care Supervisor Shearing Name Role Phone Mansoor Sparks MD Primary Care Provider [phone] Jesús Barrera MD Unavailable [phone] Allergies Active Allergy Reactions Criticality Noted Date [...] on file Legal Sex Female 2:27 AM CREDIT UNION EXAMINER Gender Identity Not on file Sexual Orientation [...] BILATERAL W PACO Routine 04/29/2017 2:33 PM CREDIT UNION EXAMINER from Last 3 Months or Most Recently Relevant to Health Maintenance Results * Screening Mammogram Bilateral W Paco (04/29/2017 2:33 PM CREDIT UNION EXAMINER) Anatomical Region Laterality Modality Breast Bilateral Mammography 04/29/2017 2:33 PM CREDIT UNION EXAMINER Impressions 04/29/2017 4:33 PM CREDIT UNION EXAMINER BI-RAD 1 NEGATIVE There is no mammographic evidence of malignancy. A 1 year screening mammogram is recommended. The patient has been or will be contacted. The patient will be entered into a reminder system with a target due date of 1 year for her next screening exam. Electronically signed by: Dr. Spike ahuja/radha:04/29/2017 16:33:10 Chief Investment Officer: Brit Valdivia, [facility] letter sent: Normal Exam Reading location: [facility] BI-RADS: 1 Negative [EOD] Narrative 04/29/2017 4:33 PM CREDIT UNION EXAMINER - MG BILATERAL DIGITAL SCREENING MAMMOGRAM 3D/2D [...] dated: 12/13/2015 mammogram and 09/23/2014 mammogram - [facility]. BREAST TISSUE: The tissue of both [...] dated: 12/13/2015 mammogram and 09/23/2014 mammogram - [facility]. BREAST TISSUE: The tissue of both [...] Electronically signed by: Dr. Spike ahuja/radha:04/29/2017 16:33:10 Chief Investment Officer: Brit Valdivia [facility] letter sent: Normal Exam Reading location: [facility] BI-RADS: 1 Negative [EOD] us [place] NP IMG MAMMO PROCEDURES Final Res ult from Last 3 Months or Most Recently Relevant to Health Maintenance Insurance [facility], [address] [facility] , [address] [facility] Care Teams Supervisor Shearing Relationship Specialty Start Date End Date Mansoor Sparks MD [address] [address] PCP - General Family Medicine 06/18/22 Jesús Barrera MD [address] [address] Medical Oncologist/Fundraising Manager Hematology and Oncology 02/16/24
--- OUTSIDE RECORDS SUMMARY | 2025-05-19 12:44 | XMS_ITS | Clinical Summary ---
Author Organization [facility] [employer] Address [address] [place] [address] Care Team Providers Care Diagnostic Medical Sonographer Name Role Phone Unavailable Primary Care Provider Unavailabl e Source Comments [facility] [employer],non-owned Affiliates and Associated Physician Practices is amultiple site organization consisting of ambulatory clinics and hospital sitesin [place], [place], [place] and [place]. This disclosure is being madepursuant to the Care Everywhere program and may not contain all information available regarding this patient. Last updated 18.[facility] [employer] Allergies Active Allergy Reactions Criticality Noted Date [...] 2018 ZOSTER VACCINE (1 of 2) 2018 DEPRESSION SCREENING 06/01/2024 COVID-19 VACCINE (1 - 2024-2 6 season) 2025 INFLUENZA VACCINE (#1) 2025 HIB VACCINE Aged [...] patient's age to complete this topic Insurance [facility]
[2025-05-19 13:39] LABS: Hematocrit 33.8 % (37.0-47.0); Hemoglobin 9.7 g/dL (12.0-15.0); Immature Granulocyte Percent A 0.2 % (0-0.5); Lymphocytes Absolute Auto 1.45 K/mm3 (0.9-3.2); Mean Corpuscular HGB Conc 28.7 g/dl (32-36); Mean Corpuscular Hemoglobin 20.0 pg (26-34); Mean Corpuscular Volume 69.5 fl (80-100); Nucleated Red Blood Cells Absolute Auto 0.000 K/mm3 (0.0-0.012); Nucleated Red Blood Cells Perc 0.0 % (0.0-0.2); Platelet Count Result 390 k/mm3 (150-375); Red Blood Count 4.86 M/mm3 (4.2-5.4); White Blood Count 5.7 K/mm3 (4.5-10.0)
--- OUTSIDE RECORDS SUMMARY | 2025-05-19 13:44 | XMS_ITS | Clinical Summary ---
Author Organization [facility] Address [address] [place] [id number] Care Team Providers Care Class C Truck Driver Name Role Phone Mansoor Sparks MD Primary Care Provider [phone] Jesús Barrera MD Unavailable [phone] Allergies Active Allergy Reactions Criticality Noted Date [...] on file Legal Sex Female 2:27 AM FLOAT OPERATOR Gender Identity Not on file Sexual [...] BILATERAL W PACO Routine 04/29/2017 2:33 PM FLOAT OPERATOR from Last 3 Months or Most Recently Relevant to Health Maintenance Results * Screening Mammogram Bilateral W Paco (04/29/2017 2:33 PM FLOAT OPERATOR) Anatomical Region Laterality Modality Breast Bilateral Mammography 04/29/2017 2:33 PM FLOAT OPERATOR Impressions 04/29/2017 4:33 PM FLOAT OPERATOR BI-RAD 1 NEGATIVE There is no mammographic evidence of malignancy. A 1 year screening mammogram is recommended. The patient has been or will be contacted. The patient will be entered into a reminder system with a target due date of 1 year for her next screening exam. Electronically signed by: Dr. Spike ahuja/radha:04/29/2017 16:33:10 Display Director: Brit Valdivia, [facility] letter sent: Normal Exam Reading location: [facility] BI-RADS: 1 Negative [EOD] Narrative 04/29/2017 4:33 PM FLOAT OPERATOR - MG BILATERAL DIGITAL SCREENING MAMMOGRAM [...] dated: 12/13/2015 mammogram and 09/23/2014 mammogram - [facility]. BREAST TISSUE: The tissue of both [...] dated: 12/13/2015 mammogram and 09/23/2014 mammogram - [facility]. BREAST TISSUE: The tissue of both [...] Electronically signed by: Dr. Spike ahuja/radha:04/29/2017 16:33:10 Display Director: Brit Valdivia [facility] letter sent: Normal Exam Reading location: [facility] BI-RADS: 1 Negative [EOD] us [place] NP IMG MAMMO PROCEDURES Final Res ult from Last 3 Months or Most Recently Relevant to Health Maintenance Insurance [facility], [address] [facility] , [address] [facility] Care Teams Class C Truck Driver Relationship Specialty Start Date End Date Mansoor Sparks MD [address] [address] PCP - General Family Medicine 06/18/22 Jesús Barrera MD [address] [address] Medical Oncologist/Figure Clerk Hematology and Oncology 02/16/24
--- OUTSIDE RECORDS SUMMARY | 2025-05-19 13:44 | XMS_ITS | Clinical Summary ---
Author Organization [facility] [employer] Address [address] [facility] [place] [address] Care Team Providers Care Meteorology Faculty Member Name Role Phone Unavailable Primary Care Provider Unavailabl e Source Comments [facility] [employer],non-owned Affiliates and Associated Physician Practices is amultiple site organization consisting of ambulatory clinics and hospital sitesin [place], [place], [place] and [place]. This disclosure is being madepursuant to the Care Everywhere program and may not contain all information available regarding this patient. Last updated 18.[facility] [employer] Allergies Active Allergy Reactions Criticality Noted Date [...] patient's age to complete this topic Insurance [facility]
[2025-05-19 13:53] LABS: Alanine Aminotransferase 12 U/L (6-35); Albumin Level 4.0 g/dL (3.5-5.1); Alkaline Phosphatase 63 U/L (38-126); Anion Gap 10 mmol/L (4-12); Aspartate Amino Transferase 22 U/L (14-36); Bilirubin,Total 0.5 mg/dL (0.2-1.3); Blood Urea Nitrogen 8 mg/dL (7-17); Calcium 8.3 mg/dL (8.4-10.2); Carbon Dioxide 28 mmol/L (22-30); Chloride 100 mmol/L (98-107); Estimated CRCL calculation 75 ml/min; Estimated Glomerular Filt Rate > 60; Glucose 106 mg/dL (65-110); Lipase 72 U/L (23-300); Potassium 3.1 mmol/L (3.4-5.0); Sodium 138 mmol/L (137-145); Total Protein 7.4 g/dL (6.3-8.2)
--- NOTE | 2025-05-19 14:53 | PC.NURSE ---
patient states that she is unable to provide urine sample at this time. patient also refusing straight catheter. MD Richard notified.
[2025-05-19 14:54] LABS: Anisocytosis 1+; Burr Cells 1+; Microcytosis 1+ (NORMAL); Ovalocytes 1+; Schistocytes None Seen
[2025-05-19 15:04] LABS: Magnesium 0.4 mg/dL (1.6-2.3)
[2025-05-19] MEDS: MAGNESIUM SULF 2 GM/WATER 50ML 2 GM/50 ML BAG IVPB (15:20)
--- NOTE | 2025-05-19 15:29 | ED.NAVMDI ---
HPI - Nausea/Vomiting/Diarrhea General Chief complaint: Nausea/Vomiting/Diarrhea Stated complaint: diarrhea, cough, L breast [place] Time Seen by Provider: 05/19/25 13:08 History of Present Illness HPI Narrative: Patient is a 54-year-old female who presents to the ER with weakness and diarrhea. She has had 4 loose stools a day over last 3-4 days. No blood. Reports her backside is raw from wiping. She was recently in the hospital for low potassium and low magnesium. She only ate some cottage cheese yesterday evening and has had nothing to eat today. No syncope. No fevers or chills or sweats. No chest pain or exertional dyspnea. She has also developed a new rash beneath her left breast has speak in slightly itchy. Related Data Home Medications ?Medication ?Instructions ?Recorded ?Confirmed ?Last Taken ?Type albuterol sulfate 2.5 mg/3 mL 2.5 mg inhalation TID PRN 08/08/21 04/16/25 1 Month Ago History (0.083 %) solution for nebulization Shortness Of Breath ~07/11/21 atorvastatin 20 mg tablet 20 mg PO DAILY 08/08/21 04/16/25 08/08/21 11:00 History duloxetine 60 mg capsule,delayed 60 mg PO DAILY 08/08/21 04/16/25 08/08/21 11:00 History release losartan 100 mg tablet 100 mg PO DAILY 08/08/21 04/16/25 08/08/21 11:00 History omeprazole 40 mg capsule,delayed 40 mg PO BID 08/08/21 04/16/25 08/08/21 11:00 History release trazodone 300 mg tablet 300 mg PO HS 08/08/21 04/16/25 08/07/21 21:00 History carvedilol 25 mg tablet 25 mg PO Q12H 04/16/25 04/16/25 Unknown History nifedipine 30 mg tablet,extended 30 mg PO DAILY 04/16/25 04/16/25 Unknown History release Allergies Allergy/AdvReac Type Severity Reaction Status Date / Time ibuprofen Allergy Mild Vomiting Verified 05/19/25 13:26 Review of Systems Review of Systems: All systems reviewed & are unremarkable except as noted in HPI and below Constitutional: Constitutional: Reports no additional constitutional complaints ENT: Reports system reviewed and no additional complaints, except as documented Cardiovascular: Cardiovascular: Reports no additional cardiovascular complaints Respiratory: Respiratory: Reports no additional respiratory complaints Gastrointestinal: Gastrointestinal: Reports no additional gastrointestinal complaints Integumentary/Breasts: Skin/Breast: Reports system reviewed and no additional complaints, except as docu [facility] Past Medical History Medical History (Updated 05/19/25 @ 18:54 by Tyrone Richard MD) 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 Shingles Anemia Anxiety Fractures lt 3rd finger, rt great toe Osteoporosis Arthritis DDD (degenerative disc disease) Back pain UTI (urinary tract infection) Abnormal uterine bleeding Irritable bowel Ulcer Hemorrhoids GERD (gastroesophageal reflux disease) Pneumonia Bronchitis Asthma COPD (chronic obstructive pulmonary disease) Depression Hypertension Surgical History Surgical History History of bunionectomy H/O: hysterectomy Family History Family History Mother Breast cancer Father Hypertension Sibling Cardiomyopathy Sibling Brain aneurysm Social History Social History Smoking packs per day: 1 Smoking cigarettes per day: 20.0 Years smoked: 20 Smoking pack-years: 20.00 Smoking status: Current every day smoker Tobacco type: cigarettes Alcohol intake: never Substance use: never Lack of Transportation: No Lack of Food: Never True Current Housing: I Have Housing Concerned About Future Housing: No Difficulty Paying Gas/Electric Bills: No Difficulty Paying for Meds: No Currently Unemployed: No Education: Grade School Difficulty w/ Childcare or Family Care: No Spiritual care concerns: No Exam Narrative: GENERAL: Well-appearing, well-nourished, and in no acute distress. HEAD: Normocephalic, atraumatic. ENT: Mucous membranes moist. CHEST: Clear to auscultation. No respiratory distress. HEART: Regular rate and rhythm. Normal peripheral pulses. ABDOMEN: Soft, nontender, nondistended. EXTREMITIES: Normal range of motion. No edema. SKIN: Warm, dry, no rash. NEURO: Alert and oriented x3. PSYCH: Normal mood and affect. Course Course Emergency Course: Patient resting comfortably. Magnesium was low but was replaced. Potassium also borderline so we will give her oral supplementation. Patient feels comfortable with discharge home. Vital Signs Vital signs: Vital Signs Temperature 95.8 F L 05/19/25 12:42 Pulse Rate 111 H 05/19/25 12:42 Respiratory Rate 20 05/19/25 12:42 Blood Pressure 140/111 H 05/19/25 12:42 Pulse Oximetry 100 05/19/25 12:42 Oxygen Delivery Room Air 05/19/25 12:42 Temperature 98.3 F 05/19/25 17:29 Pulse Rate 89 05/19/25 18:00 Respiratory Rate 12 05/19/25 18:00 Blood Pressure 129/87 05/19/25 17:31 Pulse Oximetry 97 05/19/25 18:00 Oxygen Delivery Room Air 05/19/25 12:42 MDM Differential Diagnosis Differential Diagnosis: Electrolyte imbalance, SHAY, dehydration, UTI, gastroenteritis Medical Records I have reviewed the following patient records and this information was taken into consideration when formulating the assessment and plan.: previous labs, previous ER visits and previous hospitalizations Lab Data [place] Lab Attestation statement: I personally reviewed the patient's lab results. 05/19/25 13:32 05/19/25 13:32 Labs: Lab Results 05/19/25 05/19/25 05/19/25 Range/Units 13:32 17:26 18:15 WBC 5.7 (4.5-10.0) K/mm3 RBC 4.86 (4.2-5.4) M/mm3 Hgb 9.7 L (12.0-15.0) g/dL Hct 33.8 L (37.0-47.0) % MCV 69.5 L (80-100) fl MCH 20.0 L (26-34) pg MCHC 28.7 L (32-36) g/dl RDW 18.7 H (11.5-14.5) % Plt Count 390 H (150-375) k/mm3 MPV 9.6 (7.4-10.4) fl Immature Gran % (Auto) 0.2 (0-0.5) % Neut % (Auto) 61.3 (45.5-73.1) % Lymph % (Auto) 25.4 (18.3-44.2) % [place] % (Auto) 8.2 (2.6-8.5) % Eos % (Auto) 4.7 H (0-4.4) % Baso % (Auto) 0.2 (0.2-1.2) % Lymph # (Auto) 1.45 (0.9-3.2) K/mm3 [place] # (Auto) 0.5 (0.1-0.6) K/mm3 Eos # (Auto) 0.3 (0-0.3) K/mm3 Baso # (Auto) 0.0 (0.0-0.1) K/mm3 Abs Immat Gran (auto) 0.01 (0.00-0.031) K/mm3 Absolute Neuts (auto) 3.5 (1.3-6.7) K/mm3 Absolute Nucleated RBC 0.000 (0.0-0.012) K/mm3 Band Neutrophils % Not Reportable Nucleated RBC % 0.0 (0.0-0.2) % Platelet Estimate Slightly increased (Adequate) Anisocytosis 1+ Microcytosis 1+ (NORMAL) Ovalocytes 1+ [place] Cells 1+ Schistocytes None seen Sodium 138 (137-145) mmol/L Potassium 3.1 L (3.4-5.0) mmol/L Chloride 100 (98-107) mmol/L Carbon Dioxide 28 (22-30) mmol/L Anion Gap 10 (4-12) mmol/L BUN 8 (7-17) mg/dL Creatinine 0.70 (0.7-1.0) mg/dL Estim Creat Clear Calc 75 ml/min Estimated GFR > 60 (59 - ) Glucose 106 (65-110) mg/dL Calcium 8.3 L (8.4-10.2) mg/dL Magnesium 0.4 L 1.2 L (1.6-2.3) mg/dL Total Bilirubin 0.5 (0.2-1.3) mg/dL AST 22 (14-36) U/L ALT 12 (6-35) U/L Alkaline Phosphatase 63 (38-126) U/L Total Protein 7.4 (6.3-8.2) g/dL Albumin 4.0 (3.5-5.1) g/dL Lipase 72 (23-300) U/L Urine Color Dark yellow (Yellow) Urine Appearance Clear (Clear) Urine pH 7.0 (5.0-9.0) Ur Specific Pep 1.028 (1.001-1.035) Urine Protein 1+ H (Negative) mg/dL Urine Glucose (UA) Negative (Negative) mg/dL Urine Ketones 3+ H (Negative) mg/dL Ur Blood (Man) Negative (Negative) Urine Nitrate Negative (Negative) Urine Bilirubin Negative (Negative) Urine Urobilinogen 1.0 (<2.0) mg/dL Add Ur Microanalysis Reviewed Leukocyte Esterase Rfl Trace H (Negative) ELLE/UL Urine RBC 0-2 (0-2) /hpf Urine WBC 0-5 (0-3) /hpf Ur Squamous Epith Cells Occasional (Few) /hpf Urine Bacteria None seen /hpf Urine Casts 0-2 Discharge Plan Discharge Clinical Impression: Hypomagnesemia, Hypokalemia Patient Disposition: Home Condition: Stable Instructions: Hypokalemia (ED), Hypomagnesemia (ED) Additional Instructions: You may increase her magnesium to twice a day dosing and your potassium to twice a day dosing. Return the ER if you have worsening weakness, you lose consciousness, or you have additional concerns. Please schedule follow-up appointment with your PCP for further evaluation. Patient Language: Mozambican Prescriptions: New magnesium oxide 500 mg magnesium tablet 500 mg PO BID Qty: 14 0RF potassium chloride [K-Tab] 20 mEq tablet extended release 20 meq PO BID Qty: 14 0RF No Action carvedilol 25 mg tablet 25 mg PO Q12H nifedipine 30 mg tablet extended release 30 mg PO DAILY magnesium oxide 400 mg (241.3 mg magnesium) Tablet 400 mg PO DAILY Qty: 30 0RF ferrous sulfate 325 mg (65 mg iron) Tablet,Delayed Release (Dr/Ec) 325 mg PO BID@1200,1700 Qty: 60 0RF potassium chloride [Klor-Con M20] 20 mEq tablet,ER particles/crystals 20 meq PO DAILY Qty: 30 0RF ondansetron 4 mg tablet,disintegrating 4 mg PO Q8H PRN (Reason: nausea and vomiting) Qty: 30 0RF atorvastatin 20 mg tablet 20 mg PO DAILY albuterol sulfate 2.5 mg /3 mL (0.083 %) solution for nebulization 2.5 mg inhalation TID PRN (Reason: Shortness Of Breath) omeprazole 40 mg capsule,delayed release(DR/EC) 40 mg PO BID trazodone 300 mg tablet 300 mg PO HS losartan 100 mg tablet 100 mg PO DAILY duloxetine 60 mg capsule,delayed release(DR/EC) 60 mg PO DAILY aspirin [Children's Aspirin] 81 mg Tablet,Chewable 81 mg PO DAILY@0800 30 Days Qty: 30 0RF fluticasone propion-salmeterol [Advair HFA] 115-21 mcg/actuation Hfa Aerosol Inhaler 2 puff inhalation Q12HRT 30 Days Qty: 12 0RF Follow-up/Referrals: Clare,Mansoor Talbot MD [Primary Care Provider] - 1 Week
[2025-05-19 17:59] LABS: Add Urine Microscopic? YES; Appearance Urine Clear (Clear); Glucose Urine UA Negative (Negative); Leukocyte Esterase Ur Trace LEU/UL (Negative); Need Manual Microscopic Reviewed; Nitrate Urine Negative (Negative); Non Pathogenic Casts 0-2; Specific Grav Ur 1.028 (1.001-1.035)
[2025-05-19 18:30] LABS: Magnesium 1.2 mg/dL (1.6-2.3)
[2025-05-19] MEDS: POTASSIUM CHLORIDE 20 MEQ ER TABLET 40 MEQ PO (19:02)
== END 2025-05-19 19:09 | disposition home or self-care (01) ==
PROVIDERS: Emergency Provider Emergency Medicine; PCP Family Medicine
DX: E83.42 Hypomagnesemia (principal); E87.6 Hypokalemia; H91.91 Unspecified hearing loss, right ear; M81.0 Age-related osteoporosis without current pathological fracture; K21.9 Gastro-esophageal reflux disease without esophagitis; J45.909 Unspecified asthma, uncomplicated; I10 Essential (primary) hypertension; F17.210 Nicotine dependence, cigarettes, uncomplicated
CPT/HCPCS: 36415; 80053; 81001; 83690; 83735; 85025; 96365; 96366; 99284; A9270; J3475

== ENCOUNTER 2025-05-27 15:58 | Observation (INO) | payer OTHER, SELFPAY ==
--- NOTE | ~2025-05-27 | XR_ITS ---
XR wrist LT 2V 05/29/2025 13:20 INDICATION: Left wrist pain after fall PROCEDURE: 2 views left wrist COMPARISON: FINDINGS: Fracture, dislocation or subluxation is not identified. The soft tissues appear within normal limits. No foreign bodies are identified. Lateral view is limited due to extension and rotation. IMPRESSION: 1: NO ACUTE BONE OR JOINT ABNORMALITY IDENTIFIED. Reviewed, dictated and finalized at location O. 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
[2025-05-27 15:59] VITALS: BP 103/63; PULSE 91; RESP 16; TEMP 36.4; O2SAT 100
[2025-05-27 18:16] VITALS: BP 107/58; PULSE 77; RESP 16; O2SAT 97
[2025-05-27 18:34] VITALS: BP 135/71; PULSE 84; RESP 15; O2SAT 100
[2025-05-27 18:46] VITALS: BP 104/53; PULSE 85; RESP 17; O2SAT 99
--- NOTE | 2025-05-27 19:28 | ED.GENADULT ---
HPI - General Adult General Chief complaint: Unspecified Stated complaint: reaction to taking her medications Time Seen by Provider: 05/27/25 19:03 History of Present Illness HPI narrative: 54-year-old female with history of hypertension, COPD, hypokalemia, hypomagnesemia. Patient presents to the emergency department with complaints that she feels like she is having adverse reaction secondary to her new medications. Patient states she was recently seen here and increased on her dose of magnesium and potassium as they were still low from a recent hospitalization in April. She has vague complaints such as feeling nauseous and generalized malaise and weakness. She has had these complaints since April on review of the EMR. Denies any other specific complaints such as difficulty breathing, abdominal pain, diarrhea, vomiting, headache, vision changes. States that she recently increased her doses of magnesium oxide and recently restarted her albuterol after discussing with her doctor's and feels like there are interacting with her life. She has no allergy type symptoms such as difficulty breathing, throat closing sensation, rash, itchiness, GI distress or any other complaints. Related Data Home Medications ?Medication ?Instructions ?Recorded ?Confirmed ?Last Taken ?Type albuterol sulfate 2.5 mg/3 mL 2.5 mg inhalation TID PRN 08/08/21 04/16/25 1 Month Ago History (0.083 %) solution for nebulization Shortness Of Breath ~07/11/21 atorvastatin 20 mg tablet 20 mg PO DAILY 08/08/21 04/16/25 08/08/21 11:00 History duloxetine 60 mg capsule,delayed 60 mg PO DAILY 08/08/21 04/16/25 08/08/21 11:00 History release losartan 100 mg tablet 100 mg PO DAILY 08/08/21 04/16/25 08/08/21 11:00 History omeprazole 40 mg capsule,delayed 40 mg PO BID 08/08/21 04/16/25 08/08/21 11:00 History release trazodone 300 mg tablet 300 mg PO HS 08/08/21 04/16/25 08/07/21 21:00 History carvedilol 25 mg tablet 25 mg PO Q12H 04/16/25 04/16/25 Unknown History nifedipine 30 mg tablet,extended 30 mg PO DAILY 04/16/25 04/16/25 Unknown History release Allergies Allergy/AdvReac Type Severity Reaction Status Date / Time ibuprofen Allergy Mild Vomiting Verified 05/19/25 13:26 Review of Systems Review of Systems: As reviewed above in HPI All systems reviewed & are unremarkable except as noted in HPI and below PMFSH Past Medical History Medical History 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 Shingles Anemia Anxiety Fractures lt 3rd finger, rt great toe Osteoporosis Arthritis DDD (degenerative disc disease) Back pain UTI (urinary tract infection) Abnormal uterine bleeding Irritable bowel Ulcer Hemorrhoids GERD (gastroesophageal reflux disease) Pneumonia Bronchitis Asthma COPD (chronic obstructive pulmonary disease) Depression Hypertension Surgical History Surgical History History of bunionectomy H/O: hysterectomy Family History Family History Mother Breast cancer Father Hypertension Sibling Cardiomyopathy Sibling Brain aneurysm Social History Social History Smoking packs per day: 1 Smoking cigarettes per day: 20.0 Years smoked: 20 Smoking pack-years: 20.00 Smoking status: Current every day smoker Tobacco type: cigarettes Alcohol intake: never Substance use: never Lack of Transportation: No Lack of Food: Never True Current Housing: I Have Housing Concerned About Future Housing: No Difficulty Paying Gas/Electric Bills: No Difficulty Paying for Meds: No Currently Unemployed: No Education: Grade School Difficulty w/ Childcare or Family Care: No Spiritual care concerns: No Exam Narrative: GENERAL: [Well-appearing, well-nourished, and in no acute distress.] HEAD: [Normocephalic, atraumatic.] EYES: [PERRLA and EOMI.] ENT: Nares clear, no rhinorrhea or epistaxis. Mucous membranes moist. NECK: Supple. CHEST: [Clear to auscultation. No respiratory distress.] HEART: [Regular rate and rhythm]. No murmur heard. [Normal peripheral pulses.] ABDOMEN: [Soft, nondistended], [nontender], [No rigidity or guarding] EXTREMITIES: Normal range of motion. [No edema.] SKIN: Warm, dry, no rash. NEURO: [No focal deficits]. Alert and oriented [x3.] PSYCH: [Normal mood and affect.] Course Vital Signs Vital signs: Vital Signs Temperature 36.4 C L 05/27/25 15:59 Pulse Rate 91 05/27/25 15:59 Respiratory Rate 16 05/27/25 15:59 Blood Pressure 103/63 05/27/25 15:59 Pulse Oximetry 100 05/27/25 15:59 Oxygen Delivery Room Air 05/27/25 15:59 Temperature 36.4 C L 05/27/25 15:59 Pulse Rate 85 05/27/25 18:46 Respiratory Rate 17 05/27/25 18:46 Blood Pressure 104/53 L 05/27/25 18:46 Pulse Oximetry 99 05/27/25 18:46 Oxygen Delivery Room Air 05/27/25 15:59 MDM MDM Narrative Medical decision making narrative: 54-year-old female with history of hypertension, COPD, hypokalemia, hypomagnesemia. Patient presents to the emergency department with complaints that she feels like she is having adverse reaction secondary to her new medications. Patient states she was recently seen here and increased on her dose of magnesium and potassium as they were still low from a recent hospitalization in April. She has vague complaints such as feeling nauseous and generalized malaise and weakness. She has had these complaints since April on review of the EMR. Denies any other specific complaints such as difficulty breathing, abdominal pain, diarrhea, vomiting, headache, vision changes. States that she recently increased her doses of magnesium oxide and recently restarted her albuterol after discussing with her doctor's and feels like there are interacting with her life. She has no allergy type symptoms such as difficulty breathing, throat closing sensation, rash, itchiness, GI distress or any other complaints. Patient is overall well-appearing and has normal vital signs. No tachycardia, fever, hypoxemia. No significant blood pressure elevations. She is very vague complaints but does have a history of low magnesium of potassium. Will evaluate laboratory studies and see if there is any electrolyte derangements, dehydration, kidney injury. Patient given a fluid bolus and re-evaluated for labs. Laboratory studies show severe hypo magnesemia and mild hypokalemia. We discussed with patient and she has been compliant with her magnesium at home so unclear why she is losing this magnesium possibly from GI losses but no diarrhea at this time. Patient given a 2 g dose of IV magnesium at this time, oral potassium and a repeat 2 g dose in several hours. EKG he obtained showing no ST segment changes from prior, she does have scooped ST segments and you waves consistent with hypo magnesemia and stable from her prior EKG. Patient will be admitted to the hospital after I discussed this with her. Discussed with the hospitalist and patient was placed on to a telemetry monitored bed to monitor arrhythmia development while electrolytes are being replaced. Differential Diagnosis Differential Diagnosis: Will evaluate laboratory studies and see if there is any electrolyte derangements, dehydration, kidney injury. Lab Data MDM Lab Attestation statement: I personally reviewed the patient's lab results. 05/27/25 19:44 05/27/25 19:44 Labs: Lab Results 05/27/25 Range/Units 19:44 WBC 9.0 (4.5-10.0) K/mm3 RBC 4.66 (4.2-5.4) M/mm3 Hgb 9.2 L (12.0-15.0) g/dL Hct 31.8 L (37.0-47.0) % MCV 68.2 L (80-100) fl MCH 19.7 L (26-34) pg MCHC 28.9 L (32-36) g/dl RDW 18.4 H (11.5-14.5) % Plt Count 560 H (150-375) k/mm3 MPV 9.1 (7.4-10.4) fl Immature Gran % (Auto) 0.4 (0-0.5) % Neut % (Auto) 71.8 (45.5-73.1) % Lymph % (Auto) 18.5 (18.3-44.2) % [place] % (Auto) 8.5 (2.6-8.5) % Eos % (Auto) 0.1 (0-4.4) % Baso % (Auto) 0.7 (0.2-1.2) % Lymph # (Auto) 1.66 (0.9-3.2) K/mm3 [place] # (Auto) 0.8 H (0.1-0.6) K/mm3 Eos # (Auto) 0.0 (0-0.3) K/mm3 Baso # (Auto) 0.1 (0.0-0.1) K/mm3 Abs Immat Gran (auto) 0.04 H (0.00-0.031) K/mm3 Absolute Neuts (auto) 6.4 (1.3-6.7) K/mm3 Absolute Nucleated RBC 0.000 (0.0-0.012) K/mm3 Band Neutrophils % Not Reportable Nucleated RBC % 0.0 (0.0-0.2) % Platelet Estimate Increased (Adequate) Hypochromasia 1+ Poikilocytosis 1+ Anisocytosis 1+ Microcytosis 1+ (NORMAL) Target Cells Occasional Ovalocytes 1+ Crenated Cell Occasional Schistocytes Rare Sodium 138 (137-145) mmol/L Potassium 3.1 L (3.4-5.0) mmol/L Chloride 104 (98-107) mmol/L Carbon Dioxide 25 (22-30) mmol/L Anion Gap 9 (4-12) mmol/L BUN 8 (7-17) mg/dL Creatinine 0.74 (0.7-1.0) mg/dL Estim Creat Clear Calc Not Reportable Estimated GFR > 60 (59 - ) Glucose 115 H (65-110) mg/dL Calcium 7.9 L (8.4-10.2) mg/dL Magnesium 0.2 L (1.6-2.3) mg/dL Total Bilirubin 0.6 (0.2-1.3) mg/dL AST 16 (14-36) U/L ALT 10 (6-35) U/L Alkaline Phosphatase 62 (38-126) U/L Total Protein 7.4 (6.3-8.2) g/dL Albumin 3.8 (3.5-5.1) g/dL Critical Care Time Critical Care Time Critical Care Time: Yes Time Type: Intermittent Initial evaluation, discuss w/ involved parties, attempting to gather old records: 10 minutes Documenting medical record: 5 minutes Review of results (EKG's, labs, imaging): 5 minutes Serial repeat bedside evaluation: 10 minutes Discussing case with multiple memebers of the care team and consultants: 5 minutes Total Critical Care Time: 35 Discharge Plan Discharge Clinical Impression: Hypomagnesemia, Hypokalemia, Weakness Patient Disposition: Still a Patient Condition: Stable Patient Language: Armenian Prescriptions: No Action carvedilol 25 mg tablet 25 mg PO Q12H nifedipine 30 mg tablet extended release 30 mg PO DAILY magnesium oxide 400 mg (241.3 mg magnesium) Tablet 400 mg PO DAILY Qty: 30 0RF ferrous sulfate 325 mg (65 mg iron) Tablet,Delayed Release (Dr/Ec) 325 mg PO BID@1200,1700 Qty: 60 0RF potassium chloride [Klor-Con M20] 20 mEq tablet,ER particles/crystals 20 meq PO DAILY Qty: 30 0RF ondansetron 4 mg tablet,disintegrating 4 mg PO Q8H PRN (Reason: nausea and vomiting) Qty: 30 0RF atorvastatin 20 mg tablet 20 mg PO DAILY albuterol sulfate 2.5 mg /3 mL (0.083 %) solution for nebulization 2.5 mg inhalation TID PRN (Reason: Shortness Of Breath) omeprazole 40 mg capsule,delayed release(DR/EC) 40 mg PO BID trazodone 300 mg tablet 300 mg PO HS losartan 100 mg tablet 100 mg PO DAILY duloxetine 60 mg capsule,delayed release(DR/EC) 60 mg PO DAILY aspirin [Children's Aspirin] 81 mg Tablet,Chewable 81 mg PO DAILY@0800 30 Days Qty: 30 0RF fluticasone propion-salmeterol [Advair HFA] 115-21 mcg/actuation Hfa Aerosol Inhaler 2 puff inhalation Q12HRT 30 Days Qty: 12 0RF magnesium oxide 500 mg magnesium tablet 500 mg PO BID Qty: 14 0RF potassium chloride [K-Tab] 20 mEq tablet extended release 20 meq PO BID Qty: 14 0RF nystatin 100,000 unit/gram powder 1 applic topical TID Qty: 15 0RF Follow-up/Referrals: Clare,Mansoor Talbot MD [Primary Care Provider] Time of Disposition: 20:48
[2025-05-27 19:50] LABS: Hematocrit 31.8 % (37.0-47.0); Hemoglobin 9.2 g/dL (12.0-15.0); Immature Granulocyte Percent A 0.4 % (0-0.5); Lymphocytes Absolute Auto 1.66 K/mm3 (0.9-3.2); Mean Corpuscular HGB Conc 28.9 g/dl (32-36); Mean Corpuscular Hemoglobin 19.7 pg (26-34); Mean Corpuscular Volume 68.2 fl (80-100); Nucleated Red Blood Cells Absolute Auto 0.000 K/mm3 (0.0-0.012); Nucleated Red Blood Cells Perc 0.0 % (0.0-0.2); Platelet Count Result 560 k/mm3 (150-375); Red Blood Count 4.66 M/mm3 (4.2-5.4); White Blood Count 9.0 K/mm3 (4.5-10.0)
[2025-05-27] MEDS: ONDANSETRON INJ 4 MG/2 ML VIAL IV PUSH (20:03)
[2025-05-27] MEDS: LACTATED RINGERS 1,000 ML 999 ML IV CONT (20:03)
[2025-05-27 20:14] LABS: Anisocytosis 1+; Hypochromasia 1+; Microcytosis 1+ (NORMAL); Ovalocytes 1+; Poikilocytosis 1+; Target Cells Occasional
[2025-05-27 20:15] LABS: Crenated RBC Occasional; Schistocytes Rare
--- NOTE | 2025-05-27 20:17 | ECG_ITS ---
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
[2025-05-27 20:19] LABS: Alanine Aminotransferase 10 U/L (6-35); Albumin Level 3.8 g/dL (3.5-5.1); Alkaline Phosphatase 62 U/L (38-126); Anion Gap 9 mmol/L (4-12); Aspartate Amino Transferase 16 U/L (14-36); Bilirubin,Total 0.6 mg/dL (0.2-1.3); Blood Urea Nitrogen 8 mg/dL (7-17); Calcium 7.9 mg/dL (8.4-10.2); Carbon Dioxide 25 mmol/L (22-30); Chloride 104 mmol/L (98-107); Estimated Glomerular Filt Rate > 60; Glucose 115 mg/dL (65-110); Magnesium 0.2 mg/dL (1.6-2.3); Potassium 3.1 mmol/L (3.4-5.0); Sodium 138 mmol/L (137-145); Total Protein 7.4 g/dL (6.3-8.2)
[2025-05-27 20:48] VITALS: BP 132/102; PULSE 87; RESP 13; O2SAT 99
[2025-05-27] MEDS: MAGNESIUM SULF 2 GM/WATER 50ML 2 GM/50 ML BAG IVPB ×2 (20:51→23:36)
[2025-05-27] MEDS: POTASSIUM CHLORIDE 20 MEQ ER TABLET 40 MEQ PO (20:54)
--- NOTE | 2025-05-27 22:52 | WPCEDHO ---
ED Hand Off Checklist All vitals saved:yes IV Site documented:yes All med administrations documented:yes Triage Note Triage Note pt from home, pt stated that she 05/27/25 15:59 has been taking her medications, now she can not have a BM, has nausea and also that she can not sleep Allergies ibuprofen Allergy (Mild, Verified 05/19/25 13:26) Vomiting Family History (Last Reviewed 05/27/25 @ 19:30 by Rubens Motley MD) Mother Breast cancer Father Hypertension Sibling Cardiomyopathy Sibling Brain aneurysm Administered/Completed Medications Discontinued Medications Lactated Ringer's (Lr - Lactated Ringers Iv) 1,000 mls @ 999 mls/hr IV CONT .Q1H1M STA Stop: 05/27/25 20:33 Last Admin: 05/27/25 20:03 Dose: 999 mls/hr Documented By: ALFA Magnesium Sulfate (Magnesium Sulf 2 Gm/Water 50ml) 2 gm in 50 mls @ 25 mls/hr IVPB ONCE ONE Stop: 05/27/25 22:16 Last Admin: 05/27/25 20:51 Dose: 25 mls/hr Documented By: ALFA Co-signed By: SULTANA Ondansetron HCl (Ondansetron Inj 4 Mg/2 Ml Vial) 4 mg IV PUSH ONCE STA Stop: 05/27/25 19:34 Last Admin: 05/27/25 20:03 Dose: 4 mg Documented By: ALFA Potassium Chloride (Potassium Chloride 20 Meq Er Tablet) 40 meq PO ONCE STA Stop: 05/27/25 20:41 Last Admin: 05/27/25 20:54 Dose: 40 meq Documented By: ALFA Interventions/Assessments General Assessment Start: 05/27/25 15:59 Freq: Status: Complete Protocol: Document 05/27/25 18:37 CFG (Rec: 05/27/25 18:37 CFG [id number]) GA Gastrointestinal Assessment Gastrointestinal Constipation Symptoms All Quadrants Bowel Sounds Active Pattern Constipated Stool Size Scant IV / Saline Lock, Insert Start: 05/27/25 15:59 Freq: Status: Active Protocol: Document 05/27/25 20:03 SRW (Rec: 05/27/25 20:03 SRW [id number]) IV Assessment Peripheral Access Right Arm, Upper IV Catheter Access Initiated IV Insertion Date 05/27/25 IV Insertion Time 20:03 Catheter Gauge 20 IV Insertion 1 Attempts Ultrasound Used for No Placement IV Site Assessment WNL IV Care and WNL Maintenance Last Vital Signs Temperature 97.5 F L 05/27/25 15:59 Pulse Rate 87 05/27/25 20:48 Respiratory Rate 13 05/27/25 20:48 Pulse Oximetry 99 05/27/25 20:48 Blood Pressure 132/102 H 05/27/25 20:48 Blood Pressure Mean 112 05/27/25 20:48 Oxygen Delivery Room Air 05/27/25 15:59 Last Result - Abnormals Only Hgb 9.2 g/dL (12.0-15.0) L 05/27/25 19:44 Hct 31.8 % (37.0-47.0) L 05/27/25 19:44 MCV 68.2 fl (80-100) L 05/27/25 19:44 MCH 19.7 pg (26-34) L 05/27/25 19:44 MCHC 28.9 g/dl (32-36) L 05/27/25 19:44 RDW 18.4 % (11.5-14.5) H 05/27/25 19:44 Plt Count 560 k/mm3 (150-375) H 05/27/25 19:44 [place] # (Auto) 0.8 K/mm3 (0.1-0.6) H 05/27/25 19:44 Abs Immat Gran (auto) 0.04 K/mm3 (0.00-0.031) H 05/27/25 19:44 Potassium 3.1 mmol/L (3.4-5.0) L 05/27/25 19:44 Glucose 115 mg/dL (65-110) H 05/27/25 19:44 Calcium 7.9 mg/dL (8.4-10.2) L 05/27/25 19:44 Magnesium 0.2 mg/dL (1.6-2.3) L 05/27/25 19:44 Most Recent Suicide Severity Rating Suicide Severity Rating NO RISK INDICATED 05/27/25 15:59
[2025-05-27 23:50] VITALS: BP 118/66; PULSE 89; RESP 18; TEMP 36.4; O2SAT 94; BMI 31.4
--- NOTE | 2025-05-27 23:50 | ADMGEN ---
This patient, Purvi Villarreal, was admitted to Medical Room 248-. Patient/family oriented to hospital policies and general routines including ID bracelet, bed and alarms, visiting hours, pain management, procedures, bathroom and other care routines, personal items, smoking policy, room service/diet, and visiting hours. Information on how to activate the Rapid Response Team has been discussed. Patient/Family are encouraged to report perceived risks to care and to ask questions if they do not understand what they are told or what they should do.
[2025-05-28] VITALS (13 sets, daily range): BP systolic 101–118; BP diastolic 54–62; PULSE 70–87; RESP 16–18; TEMP 36.4–36.8; O2SAT 93–99
--- NOTE | 2025-05-28 02:27 | PM.IMHP2 ---
H&P: HPI History of Present Illness Date/Time: 05/28/25 02:27 Chief Complaint: Possible reaction to medication. Narrative: This is a 54-year-old female patient who has a history of COPD, hypertension, hyperlipidemia, hypo magnesium, hypokalemia, and anemia. The patient stated that she was here in the hospital April and her magnesium and potassium p.o. were increased. The patient has been feeling nauseated with generalized malaise and weakness. The patient stated that she feels like her medications are making her feel ill. Her H&H is 9.2 and 31.8 which appears to be her baseline. Her potassium was found to be 3.1. Calcium slightly low at 7.9. Magnesium was found to be 0.2. And potassium was found to be 3.1. She was supplemented in the emergency room. EKG was read as sinus rhythm minimal Q-waves in the inferior leads. The patient is being admitted to observation status on the date of service of 05/28/2025. Review of Systems Constitutional: Constitutional: Reports as per HPI and Reports no additional constitutional complaints Eyes: Eyes: Reports as per HPI and Reports no additional eye complaints ENT: Reports system reviewed and no additional complaints, except as documented and Reports Normal hearing present Cardiovascular: Cardiovascular: Reports no additional cardiovascular complaints Respiratory: Respiratory: Reports as per HPI and Reports no additional respiratory complaints Gastrointestinal: Gastrointestinal: Reports as per HPI and Reports no additional gastrointestinal complaints Genitourinary: Genitourinary: Reports no additional female genitourinary complaints Musculoskeletal: Musculoskeletal: Reports no additional musculoskeletal complaints Integumentary/Breasts: Skin/Breast: Reports system reviewed and no additional complaints, except as docu Neurologic: Reports system reviewed and no additional complaints, except as documented and Reports Normal hearing present Psychiatric: Psychiatric: Reports no additional psychiatric complaints and Reports as per HPI Hematologic/Lymphatic: Hematologic/Lymphatic: Reports no additional hematologic/lymphatic complaints Allergic/Immunologic: Allergic/Immunologic: Reports no additional allergic/immunologic complaints [facility] Past Medical History Medical History (Updated 05/28/25 @ 06:01 by Angélica Martínez APRN) Hyperlipidemia Hypomagnesemia 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 Shingles Anemia Anxiety Fractures lt 3rd finger, rt great toe Osteoporosis Arthritis DDD (degenerative disc disease) Back pain UTI (urinary tract infection) Abnormal uterine bleeding Irritable bowel Ulcer Hemorrhoids GERD (gastroesophageal reflux disease) Pneumonia Bronchitis Asthma COPD (chronic obstructive pulmonary disease) Depression Hypertension Surgical History Surgical History (Updated 05/28/25 @ 05:51 by Angélica Martínez APRN) H/O hemorrhoidectomy History of bunionectomy Family History Family History Mother Breast cancer Father Hypertension Sibling Cardiomyopathy Sibling Brain aneurysm Social History Social History (Updated 05/28/25 @ 05:50 by Angélica Martínez APRN) Social History: The patient stated that she lives home alone. She has 3 children. She is . She is disabled. She continues to smoke daily but declines nicotine patch. Code status: Full code Smoking packs per day: 1 Smoking cigarettes per day: 20.0 Years smoked: 40 Smoking pack-years: 40.00 Smoking status: Current every day smoker Tobacco type: cigarettes Second hand tobacco smoke exposure: Yes Alcohol intake: never Substance use: current Substance use type: marijuana Last use: 04/27/25 Lack of Transportation: No Lack of Food: Never True Current Housing: I Have Housing Concerned About Future Housing: No Difficulty Paying Gas/Electric Bills: No Difficulty Paying for Meds: No Currently Unemployed: No Education: Grade School Difficulty w/ Childcare or Family Care: No Spiritual care concerns: No Meds Home Medications and Allergies Home Medications ?Medication ?Instructions ?Recorded ?Confirmed ?Type albuterol sulfate 2.5 mg/3 mL 2.5 mg inhalation TID PRN 08/08/21 05/27/25 History (0.083 %) solution for nebulization Shortness Of Breath atorvastatin 20 mg tablet 20 mg PO DAILY 08/08/21 05/27/25 History duloxetine 60 mg capsule,delayed 60 mg PO DAILY 08/08/21 05/27/25 History release losartan 100 mg tablet 100 mg PO DAILY 08/08/21 05/27/25 History omeprazole 40 mg capsule,delayed 40 mg PO BID 08/08/21 05/27/25 History release trazodone 300 mg tablet 300 mg PO HS 08/08/21 05/27/25 History aspirin 81 mg chewable tablet 81 mg PO DAILY@0800 30 days #30 08/11/21 05/27/25 Rx (Children's Aspirin) tabs fluticasone propionate 115 2 puff inhalation Q12HRT 30 days 08/11/21 05/27/25 Rx mcg-salmeterol 21 mcg/actuation #12 grams HFA inhaler (Advair HFA) carvedilol 25 mg tablet 25 mg PO Q12H 04/16/25 05/27/25 History nifedipine 30 mg tablet,extended 30 mg PO DAILY 04/16/25 05/27/25 History release ferrous sulfate 325 mg (65 mg 325 mg PO BID@1200,1700 #60 tabs 04/19/25 05/27/25 Rx iron) tablet,delayed release ondansetron 4 mg disintegrating 4 mg PO Q8H PRN nausea and 04/19/25 05/27/25 Rx tablet vomiting #30 tabs magnesium oxide 500 mg PO BID #14 tabs 05/19/25 05/27/25 Rx nystatin 100,000 unit/gram topical 1 applic topical TID #15 grams 05/19/25 05/27/25 Rx powder potassium chloride 20 mEq 20 meq PO BID #14 tabs 05/19/25 05/27/25 Rx tablet,extended release (K-Tab) Allergies Allergy/AdvReac Type Severity Reaction Status Date / Time ibuprofen Allergy Mild Vomiting Verified 05/27/25 23:56 Vital Signs Vital Signs - 24 hr 05/27/25 15:59 05/27/25 18:16 05/27/25 18:34 Temperature 97.5 F L Pulse Rate 91 77 84 Respiratory Rate 16 16 15 Blood Pressure 103/63 107/58 L 135/71 Pulse Oximetry 100 97 100 Oxygen Delivery Room Air 05/27/25 18:46 05/27/25 20:48 05/27/25 23:50 Temperature 97.6 F Pulse Rate 85 87 89 Respiratory Rate 17 13 18 Blood Pressure 104/53 L 132/102 H 118/66 Pulse Oximetry 99 99 94 Oxygen Delivery Exam Const: General: cooperative, comfortable, no acute distress, well developed, awake, Physically active, average body habitus and well nourished Nutritional Appearance: average body habitus Orientation/consciousness: oriented to person, oriented to place, oriented to time and patient oriented x3 Limitations: no limitations HENMT: Head: normal to inspection, No palpable skull fracture present, normocephalic, atraumatic and abrasion Eyes: General: appearance normal, both eyes and all related structures Alignment and Position: alignment normal Periorbital: periorbital findings normal Eyelids: eyelids normal Neck: Neck: normal visual inspection, full ROM, no lymphadenopathy and trachea midline Resp: Effort & Inspection: normal respiratory effort Auscultation: clear to auscultation bilaterally Percussion: percussion normal Cardio: Palpation: normal PMI Rate: regular rate Rhythm: regular rhythm Heart sounds: S1 normal heart sound present and S2 normal heart sound present Peripheral pulses: Peripheral pulses 2+ throughout GI: Inspection: normal to inspection : General: Yes no CVA tenderness Back/Spine/Pelvis: Back: no CVA tenderness Skin: General skin exam: normal color Lesions: no lesions Rashes: no rashes Trauma: no lacerations or abrasions Wounds: no wounds Neuro: General: oriented to person, oriented to place, oriented to time and patient oriented x3 Gait exam (Neuro): Normal gait present Motor exam (neuro): 5/5 motor strength present throughout Sensory Exam: normal sensation Extrem: General: normal to inspection Right upper extremity: normal to inspection and shoulder/upper arm Left upper extremity: normal to inspection and shoulder/upper arm Right lower extremity: normal to inspection Left lower extremity: normal to inspection Psych: Appearance: grossly normal Mental Status: mental status grossly normal Speech and movement: Normal speech and movement present Affect: normal affect Attitude: cooperative Thought process: Normal thought process present Thought content: Yes Normal thought content present Results Labs Labs: Short CBC 05/27/25 Range/Units 19:44 WBC 9.0 (4.5-10.0) K/mm3 Hgb 9.2 L (12.0-15.0) g/dL Hct 31.8 L (37.0-47.0) % Plt Count 560 H (150-375) k/mm3 BMP 05/27/25 19:44 Sodium 138 Potassium 3.1 L Chloride 104 Carbon Dioxide 25 BUN 8 Creatinine 0.74 Glucose 115 H Calcium 7.9 L Liver Function 05/27/25 Range/Units 19:44 Total Bilirubin 0.6 (0.2-1.3) mg/dL AST 16 (14-36) U/L ALT 10 (6-35) U/L Alkaline Phosphatase 62 (38-126) U/L Albumin 3.8 (3.5-5.1) g/dL ECG Interpretation: est Date: 2025-05-27 20:44:39 Measurements Intervals [place] Rate: 85 P: 46 WV: 143 QRS: 29 QRSD: 77 T: 30 QT: 372 QTc: 445 Interpretive Statements SINUS RHYTHM MINIMAL Q WAVES- INFERIOR LEADS ST-T WAVE ABNORMALITY IN ANTEROLAT/INF LEADS- CONSIDER ISCHEMIA BASELINE ARTIFACT- I, II, III, AVR, AVL ,AVF, V1-V6 ABNORMAL ECG Compared to ECG 04/16/2025 17:40:54 NO SIGNIFICANT CHANGE Electronically Signed On 05-27-2025 21:14:19 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 She was supplemented in the emergency room and now she is 1.7. Another Mag rider has been ordered to get her magnesium above 2. -daily labs -the patient was ordered p.o. magnesium outpatient and patient stated that she has been taking this medication however they make her feel ill and upset her stomach. -resume home on p.o. magnesium. (2) Hypokalemia: Code(s): E87.6 - Hypokalemia Status: Acute Assessment and Plan: -patient's potassium was 3.1 with repeat potassium of the same 3.1 even after she was supplemented. -continue with home p.o. potassium -the patient was given another K rider. (3) COPD (chronic obstructive pulmonary disease): Code(s): J44.9 - Chronic obstructive pulmonary disease, unspecified Status: Chronic Assessment and Plan: -continue with albuterol sulfate (4) Anemia: Code(s): D64.9 - Anemia, unspecified Status: Acute Assessment and Plan: -the patient is above her baseline. Continue to monitor daily. The patient is no longer taking her ferrous sulfate. Her H&H is 9.2 and 31.8. (5) Hypertension: Qualifiers: Hypertension type: primary hypertension Qualified Code(s): I10 - Essential (primary) hypertension Code(s): I10 - Essential (primary) hypertension Status: Chronic Assessment and Plan: -continue with nifedipine, losartan, and Coreg if blood pressure allows. Current blood pressure is 118/54. (6) Depression: Code(s): F32.9 - Major depressive disorder, single episode, unspecified Status: Acute Assessment and Plan: -continue with Cymbalta and trazodone (7) Anxiety: Code(s): F41.9 - Anxiety disorder, unspecified Status: Acute Assessment and Plan: -continue Cymbalta and trazodone. (8) Hyperlipidemia: Code(s): E78.5 - Hyperlipidemia, unspecified Status: Acute Assessment and Plan: -continue with atorvastatin
[2025-05-28 03:33] LABS: Anion Gap 5 mmol/L (4-12); Blood Urea Nitrogen 6 mg/dL (7-17); Calcium 7.9 mg/dL (8.4-10.2); Carbon Dioxide 27 mmol/L (22-30); Chloride 105 mmol/L (98-107); Estimated CRCL calculation 81 ml/min; Estimated Glomerular Filt Rate > 60; Glucose 111 mg/dL (65-110); Magnesium 1.7 mg/dL (1.6-2.3); Potassium 3.1 mmol/L (3.4-5.0); Sodium 137 mmol/L (137-145)
[2025-05-28] MEDS: POTASSIUM CHLORIDE 20 MEQ ER TABLET PO ×3 (06:30→16:08)
[2025-05-28] MEDS: MAGNESIUM SULF 2 GM/WATER 50ML 2 GM/50 ML BAG IVPB (06:32)
[2025-05-28] MEDS: POTASSIUM CHLORIDE INJ 40 MEQ in SODIUM CHLORIDE 0.9% IV 500 ML 100 MEQ IVPB (06:33)
--- NOTE | 2025-05-28 07:52 | P.PNIM_ITS ---
Assessment and Plan Assessment and Plan (1) Hypomagnesemia: Code(s): E83.42 - Hypomagnesemia Status: Acute Assessment and Plan: -initially her magnesium was 0.2. She was supplemented in the emergency room and now she is 1.7. Another Mag 2g IV has been ordered to get her magnesium above 2, this will be her third dose of 2g since the ED. -daily labs -the patient was ordered p.o. magnesium outpatient and patient stated that she has been taking this medication however they make her feel ill and upset her stomach. -resume home on p.o. magnesium. -Repeat Mag lab at 1800 -Reporting nausea, Zofran is ordered. Also reporting BRUNO, takes Aleve at home, ordered PRN. (2) Hypokalemia: Code(s): E87.6 - Hypokalemia Status: Acute Assessment and Plan: -patient's potassium was 3.1 with repeat potassium of the same 3.1 even after she was supplemented with 40meq PO in the ED. -continue with home p.o. potassium -the patient was given 40meq IV upon admission, will continue to monitor -Repeat K lab at 1800 (3) COPD (chronic obstructive pulmonary disease): Code(s): J44.9 - Chronic obstructive pulmonary disease, unspecified Status: Chronic Assessment and Plan: -continue with albuterol sulfate -1/2-1 ppd smoker (4) Anemia: Code(s): D64.9 - Anemia, unspecified Status: Acute Assessment and Plan: -the patient is above her baseline. Continue to monitor daily. The patient is no longer taking her ferrous sulfate. Her H&H is 9.2 and 31.8. (5) Hypertension: Qualifiers: Hypertension type: primary hypertension Qualified Code(s): I10 - Essential (primary) hypertension Code(s): I10 - Essential (primary) hypertension Status: Chronic Assessment and Plan: -continue with nifedipine, losartan, and Coreg if blood pressure allows. Current blood pressure is 118/54. (6) Depression: Code(s): F32.9 - Major depressive disorder, single episode, unspecified Status: Acute Assessment and Plan: -continue with Cymbalta and trazodone (7) Anxiety: Code(s): F41.9 - Anxiety disorder, unspecified Status: Acute Assessment and Plan: -continue Cymbalta and trazodone. Plan Stabilization of electrolytes and sx tx Medical Record Review I have reviewed the following patient records and this information was taken into consideration when formulating the assessment and plan.: previous labs, previous ER visits and previous hospitalizations Time Spent With Patient Time with patient: Greater than 35 minutes Subjective Date/time seen: 05/28/25 0904 Interval history: Pt lying in bed resting upon my arrival having just eaten breakfast. Pt denies appetite issues. +Nausea here, +vomiting at home yesterday, and +diarrhea here just recently today. Also reporting a BRUNO today, reports takes aleve at home with no issue (ibuprofen allergy). Denies CP, SOB, abd pain, or any other sx. Updated on plan for electrolyte suppl and repeat labs this evening. Pt reports daily 1/2-1 ppd cigarette use since she was 14 y/o, denies nicotine patch. Review of Systems Review of Systems: All systems reviewed & are unremarkable except as noted in HPI and below Exam Narrative: Smells of tobacco smoke Const: General: no acute distress Nutritional Appearance: average body habitus Orientation/consciousness: patient oriented x3 HENMT: Face/Nose/Sinus: Normal nares present Mouth: Yes moist mucous membranes Eyes: General: appearance normal, both eyes and all related structures Sclera: sclerae normal Neck: Neck: full ROM and supple Resp: Effort & Inspection: normal respiratory effort Auscultation: diminished lung sounds (throughout) Cardio: Rate: regular rate Rhythm: regular rhythm GI: Inspection: non-distended GI Palp: No Tenderness to palpation present (GI) Auscultation: normal bowel sounds : Bimanual exam- vagina & uterus: bladder normal to palpation Skin: General skin exam: normal color and no rashes or lesions noted Neuro: General: patient oriented x3 Extrem: General: normal to inspection Psych: Appearance: grossly normal Mental Status: mental status grossly normal Objective Data Vital Signs Vital Signs: Vital Signs - 24 hr 05/27/25 15:59 05/27/25 18:16 05/27/25 18:34 Temperature 97.5 F L Pulse Rate 91 77 84 Respiratory Rate 16 16 15 Blood Pressure 103/63 107/58 L 135/71 Pulse Oximetry 100 97 100 Oxygen Delivery Room Air 05/27/25 18:46 05/27/25 20:48 05/27/25 23:50 Temperature 97.6 F Pulse Rate 85 87 89 Respiratory Rate 17 13 18 Blood Pressure 104/53 L 132/102 H 118/66 Pulse Oximetry 99 99 94 Oxygen Delivery 05/28/25 00:00 05/28/25 03:19 05/28/25 04:00 Temperature Pulse Rate 85 84 Respiratory Rate Blood Pressure Pulse Oximetry Oxygen Delivery Room Air 05/28/25 05:01 Temperature 98.3 F Pulse Rate 80 Respiratory Rate 16 Blood Pressure 118/54 L Pulse Oximetry 93 Oxygen Delivery Intake/Output Intake/Output: Intake & Output 05/25/25 05/26/25 05/27/25 05/28/25 23:59 23:59 23:59 23:59 Intake Total 1050 300 Balance 1050 300 Meds/Results Medications: Active Medications Generic Name Dose Route Start Last Admin Trade Name Freq PRN Reason Stop Dose Admin Acetaminophen 650 mg 05/27/25 20:45 Acetaminophen 325 Mg Tablet PO Q4H PRN Mild Pain (1-3) or Fever Albuterol 2.5 mg 05/28/25 05:43 Albuterol Sulfate Neb 2.5 Mg/3 Ml Inh INHALATION TID PRN Shortness Of Breath Aspirin 81 mg 05/28/25 08:00 Aspirin 81 Mg Chewable Tablet PO DAILY@0800 REPLACED BY [facility] Atorvastatin Calcium 20 mg 05/28/25 09:00 Atorvastatin 20 Mg Tablet PO DAILY REPLACED BY [facility] Carvedilol 25 mg 05/28/25 09:00 Carvedilol 25 Mg Tablet PO Q12HR REPLACED BY [facility] Duloxetine HCl 60 mg 05/28/25 09:00 Duloxetine Hcl 60 Mg Capsule.Dr PO DAILY REPLACED BY [facility] Potassium Chloride 40 meq/ 520 mls @ 130 mls/hr 05/28/25 06:00 05/28/25 06:33 Sodium Chloride IVPB 05/28/25 09:59 100 mls/hr ONCE ONE Administration Losartan Potassium 100 mg 05/28/25 09:00 Losartan Potassium 100 Mg Tablet PO DAILY REPLACED BY [facility] Magnesium Oxide 400 mg 05/28/25 09:00 Magnesium Oxide 400 Mg Tablet PO BID REPLACED BY [facility] Miscellaneous Information 1 each 05/28/25 09:00 Tolnaftate Powder XX 05/29/25 08:59 TID REPLACED BY [facility] Nifedipine 30 mg 05/28/25 09:00 Nifedipine 30 Mg Tab.Er.24 PO DAILY REPLACED BY [facility] Ondansetron HCl 4 mg 05/27/25 20:45 Ondansetron Inj 4 Mg/2 Ml Vial IV PUSH Q4H PRN Nausea Pantoprazole Sodium 40 mg 05/28/25 09:00 Pantoprazole 40 Mg Tablet PO BID REPLACED BY [facility] Potassium Chloride 20 meq 05/28/25 05:45 05/28/25 06:30 Potassium Chloride 20 Meq Er Tablet PO 20 meq BID MARIO Administration Fluticasone/Salmeterol 2 puff 05/28/25 08:00 Fluticasone/Salmeterol 115-21 Mcg Inhaler 1 Puff INHALATION Q12HRT REPLACED BY [facility] Trazodone HCl 300 mg 05/28/25 01:50 05/28/25 02:10 Trazodone Hcl 50 Mg Tablet PO 300 mg HS MARIO Administration Labs Labs: Laboratory Results - last 24 hr 05/27/25 05/28/25 19:44 03:06 WBC 9.0 RBC 4.66 Hgb 9.2 L Hct 31.8 L MCV 68.2 L MCH 19.7 L MCHC 28.9 L RDW 18.4 H Plt Count 560 H MPV 9.1 Immature Gran % (Auto) 0.4 Neut % (Auto) 71.8 Lymph % (Auto) 18.5 [place] % (Auto) 8.5 Eos % (Auto) 0.1 Baso % (Auto) 0.7 Lymph # (Auto) 1.66 [place] # (Auto) 0.8 H Eos # (Auto) 0.0 Baso # (Auto) 0.1 Abs Immat Gran (auto) 0.04 H Absolute Neuts (auto) 6.4 Absolute Nucleated RBC 0.000 Band Neutrophils % Not Reportable Nucleated RBC % 0.0 Platelet Estimate Increased Hypochromasia 1+ Poikilocytosis 1+ Anisocytosis 1+ Microcytosis 1+ Target Cells Occasional Ovalocytes 1+ Crenated Cell Occasional Schistocytes Rare Sodium 138 137 Potassium 3.1 L 3.1 L Chloride 104 105 Carbon Dioxide 25 27 Anion Gap 9 5 BUN 8 6 L Creatinine 0.74 0.64 L Estim Creat Clear Calc Not Reportable 81 Estimated GFR > 60 > 60 Glucose 115 H 111 H Calcium 7.9 L 7.9 L Magnesium 0.2 L 1.7 Total Bilirubin 0.6 AST 16 ALT 10 Alkaline Phosphatase 62 Total Protein 7.4 Albumin 3.8 Quality VTE Prophylaxis VTE prophylaxis: mechanical ordered
[2025-05-28] MEDS: MAGNESIUM OXIDE 400 MG TABLET PO ×2 (08:21→16:09)
[2025-05-28] MEDS: DULoxetine HCL 60 MG CAPSULE.DR PO (08:21)
[2025-05-28] MEDS: ATORVASTATIN 20 MG TABLET PO (08:22)
[2025-05-28] MEDS: PANTOPRAZOLE 40 MG TABLET PO ×2 (08:22→16:09)
[2025-05-28] MEDS: ASPIRIN 81 MG CHEWABLE TABLET PO (08:22)
[2025-05-28] MEDS: FLUTICASONE/SALMETEROL 115-21 MCG INHALER 1 PUFF 2 PUFF INHALATION ×2 (08:47→20:16)
[2025-05-28] MEDS: ONDANSETRON INJ 4 MG/2 ML VIAL IV PUSH ×2 (14:17→20:33)
[2025-05-28 18:46] LABS: Magnesium 1.9 mg/dL (1.6-2.3); Potassium 3.8 mmol/L (3.4-5.0)
[2025-05-28] MEDS: ACETAMINOPHEN 325 MG TABLET 650 MG PO (20:32)
[2025-05-29] VITALS (11 sets, daily range): BP systolic 96–138; BP diastolic 43–59; PULSE 60–79; RESP 16–18; TEMP 36.2–36.9; O2SAT 95–100
[2025-05-29 04:57] LABS: Hematocrit 27.9 % (37.0-47.0); Hemoglobin 7.5 g/dL (12.0-15.0); Immature Granulocyte Percent A 0.4 % (0-0.5); Lymphocytes Absolute Auto 3.00 K/mm3 (0.9-3.2); Mean Corpuscular HGB Conc 26.9 g/dl (32-36); Mean Corpuscular Hemoglobin 19.8 pg (26-34); Mean Corpuscular Volume 73.6 fl (80-100); Nucleated Red Blood Cells Absolute Auto 0.000 K/mm3 (0.0-0.012); Nucleated Red Blood Cells Perc 0.0 % (0.0-0.2); Platelet Count Result 464 k/mm3 (150-375); Red Blood Count 3.79 M/mm3 (4.2-5.4); White Blood Count 7.6 K/mm3 (4.5-10.0)
[2025-05-29 05:21] LABS: Anion Gap 2 mmol/L (4-12); Blood Urea Nitrogen 5 mg/dL (7-17); Calcium 8.2 mg/dL (8.4-10.2); Carbon Dioxide 26 mmol/L (22-30); Chloride 108 mmol/L (98-107); Estimated CRCL calculation 85 ml/min; Estimated Glomerular Filt Rate > 60; Glucose 88 mg/dL (65-110); Magnesium 1.7 mg/dL (1.6-2.3); Potassium 4.4 mmol/L (3.4-5.0); Sodium 136 mmol/L (137-145)
[2025-05-29 05:32] LABS: Anisocytosis 2+; Ovalocytes 1+
[2025-05-29 05:33] LABS: Hypochromasia 2+; Schistocytes Occasional
[2025-05-29] MEDS: FLUTICASONE/SALMETEROL 115-21 MCG INHALER 1 PUFF 2 PUFF INHALATION ×2 (07:50→20:38)
[2025-05-29] MEDS: ATORVASTATIN 20 MG TABLET PO (08:49)
[2025-05-29] MEDS: ASPIRIN 81 MG CHEWABLE TABLET PO (08:49)
[2025-05-29] MEDS: MAGNESIUM OXIDE 400 MG TABLET PO ×2 (08:49→16:07)
[2025-05-29] MEDS: PANTOPRAZOLE 40 MG TABLET PO ×2 (08:49→16:07)
[2025-05-29] MEDS: DULoxetine HCL 60 MG CAPSULE.DR PO (08:49)
[2025-05-29] MEDS: LOSARTAN POTASSIUM 100 MG TABLET PO (08:49)
[2025-05-29] MEDS: POTASSIUM CHLORIDE 20 MEQ ER TABLET PO ×2 (08:49→16:07)
[2025-05-29] MEDS: NAPROXEN SODIUM 220 MG TABLET PO (08:51)
--- NOTE | 2025-05-29 10:28 | P.PNIM_ITS ---
Assessment and Plan Assessment and Plan (1) Hypomagnesemia: Code(s): E83.42 - Hypomagnesemia Status: Acute Assessment and Plan: -initially her magnesium was 0.2. She was supplemented in the emergency room and now she is 1.7. Another Mag 2g IV has been ordered to get her magnesium above 2, this will be her third dose of 2g since the ED. -daily labs -the patient was ordered p.o. magnesium outpatient and patient stated that she has been taking this medication however they make her feel ill and upset her stomach. -Level 1.7 today, continue home on p.o. magnesium and recheck labs in the AM --Denies N/V/D today (2) Hypokalemia: Code(s): E87.6 - Hypokalemia Status: Acute Assessment and Plan: -patient's potassium was 3.1 with repeat potassium of the same 3.1 even after she was supplemented with 40meq PO in the ED. -continue with home p.o. potassium -the patient was given 40meq IV upon admission, will continue to monitor -Continue home on p.o. potassium and recheck labs in the AM --Denies N/V/D today (3) COPD (chronic obstructive pulmonary disease): Code(s): J44.9 - Chronic obstructive pulmonary disease, unspecified Status: Chronic Assessment and Plan: -continue with albuterol sulfate -1/2-1 ppd smoker (4) Anemia: Code(s): D64.9 - Anemia, unspecified Status: Acute Assessment and Plan: -the patient is above her baseline. Continue to monitor daily. The patient is no longer taking her ferrous sulfate. Her H&H is 7.5 today, will continue to trend. (5) Hypertension: Qualifiers: Hypertension type: primary hypertension Qualified Code(s): I10 - Essential (primary) hypertension Code(s): I10 - Essential (primary) hypertension Status: Chronic Assessment and Plan: -continue with nifedipine, losartan, and Coreg if blood pressure allows. Current blood pressure is 138/58 (6) Depression: Code(s): F32.9 - Major depressive disorder, single episode, unspecified Status: Acute Assessment and Plan: -continue with Cymbalta and trazodone (7) Anxiety: Code(s): F41.9 - Anxiety disorder, unspecified Status: Acute Assessment and Plan: -continue Cymbalta and trazodone. (8) Vertigo: Code(s): R42 - Dizziness and giddiness Status: Acute Assessment and Plan: Intermittent but new today when turns head to the right -Meclizine PRN -Trend hgb Plan Stabilization of electrolytes and sx tx, hopeful discharge tomorrow if stable labs Medical Record Review I have reviewed the following patient records and this information was taken into consideration when formulating the assessment and plan.: previous labs, previous ER visits and previous hospitalizations Time Spent With Patient Time with patient: Greater than 35 minutes Subjective Date/time seen: 05/29/25 0857 Interval history: Pt lying in bed resting upon my arrival. Pt denies N/V/D. Reporting residual abd soreness from retching as well as new vertigo today. Pt c/o L wrist pain today s/p fall in her bed x1 week ago, denies any other pain, will check imaging. Denies CP, SOB, or any other sx. Updated on plan for continuation of home dose suppl of K and mag and repeat labs this evening. Also trend hgb. Pt reports daily 1/2-1 ppd cigarette use since she was 14 y/o, denies nicotine patch. Denies etoh use. Review of Systems Review of Systems: All systems reviewed & are unremarkable except as noted in HPI and below Exam Narrative: Smells of tobacco smoke, appears older than stated age Const: General: no acute distress Nutritional Appearance: average body habitus Orientation/consciousness: patient oriented x3 HENMT: Face/Nose/Sinus: Normal nares present Mouth: Yes moist mucous membranes Eyes: General: appearance normal, both eyes and all related structures Sclera: sclerae normal Neck: Neck: full ROM and supple Resp: Effort & Inspection: normal respiratory effort Auscultation: diminished lung sounds (throughout) Cardio: Rate: regular rate Rhythm: regular rhythm GI: Inspection: non-distended GI Palp: No Tenderness to palpation present (GI) Auscultation: normal bowel sounds : Bimanual exam- vagina & uterus: bladder normal to palpation Skin: General skin exam: normal color and no rashes or lesions noted Neuro: General: patient oriented x3 Extrem: General: normal to inspection Psych: Appearance: grossly normal Mental Status: mental status grossly normal Objective Data Vital Signs Vital Signs: Vital Signs - 24 hr 05/28/25 12:00 05/28/25 14:00 05/28/25 16:00 Temperature 97.5 F L Pulse Rate 70 82 76 Respiratory Rate 17 Blood Pressure 108/61 Pulse Oximetry 95 Oxygen Delivery 05/28/25 20:00 05/28/25 20:00 05/28/25 20:17 Temperature Pulse Rate 87 87 Respiratory Rate 18 Blood Pressure Pulse Oximetry 98 97 Oxygen Delivery Room Air Room Air 05/28/25 20:32 05/28/25 23:07 05/29/25 00:00 Temperature 97.7 F Pulse Rate 83 72 62 Respiratory Rate 16 Blood Pressure 101/62 Pulse Oximetry 95 Oxygen Delivery 05/29/25 04:00 05/29/25 06:00 05/29/25 08:46 Temperature 97.6 F 97.5 F L Pulse Rate 60 68 77 Respiratory Rate 16 16 Blood Pressure 96/49 L 138/58 L Pulse Oximetry 97 100 Oxygen Delivery 05/29/25 08:49 05/29/25 08:49 05/29/25 08:49 Temperature Pulse Rate 77 77 63 Respiratory Rate 16 Blood Pressure Pulse Oximetry 100 Oxygen Delivery Room Air Intake/Output Intake/Output: Intake & Output 05/26/25 05/27/25 05/28/25 05/29/25 23:59 23:59 23:59 23:59 Intake Total 1050 1011 340 Output Total 300 700 Balance 1050 711 -360 Meds/Results Medications: Active Medications Generic Name Dose Route Start Last Admin Trade Name Freq PRN Reason Stop Dose Admin Acetaminophen 650 mg 05/27/25 20:45 05/28/25 20:32 Acetaminophen 325 Mg Tablet PO 650 mg Q4H PRN Administration Mild Pain (1-3) or Fever Albuterol 2.5 mg 05/28/25 05:43 Albuterol Sulfate Neb 2.5 Mg/3 Ml Inh INHALATION TID PRN Shortness Of Breath Aspirin 81 mg 05/28/25 08:00 05/29/25 08:49 Aspirin 81 Mg Chewable Tablet PO 81 mg DAILY@0800 MARIO Administration Atorvastatin Calcium 20 mg 05/28/25 09:00 05/29/25 08:49 Atorvastatin 20 Mg Tablet PO 20 mg DAILY MARIO Administration Carvedilol 25 mg 05/28/25 09:00 05/29/25 08:49 Carvedilol 25 Mg Tablet PO 25 mg Q12HR MARIO Administration Duloxetine HCl 60 mg 05/28/25 09:00 05/29/25 08:49 Duloxetine Hcl 60 Mg Capsule.Dr PO 60 mg DAILY MARIO Administration Losartan Potassium 100 mg 05/28/25 09:00 05/29/25 08:49 Losartan Potassium 100 Mg Tablet PO 100 mg DAILY MARIO Administration Magnesium Oxide 400 mg 05/28/25 09:00 05/29/25 08:49 Magnesium Oxide 400 Mg Tablet PO 400 mg BID MARIO Administration Naproxen 220 mg 05/28/25 09:22 05/29/25 08:51 Naproxen Sodium 220 Mg Tablet PO 220 mg BIDWM PRN Administration headache Nifedipine 30 mg 05/28/25 09:00 05/29/25 08:49 Nifedipine 30 Mg Tab.Er.24 PO 30 mg DAILY MARIO Administration Ondansetron HCl 4 mg 05/27/25 20:45 05/28/25 20:33 Ondansetron Inj 4 Mg/2 Ml Vial IV PUSH 4 mg Q4H PRN Administration Nausea Pantoprazole Sodium 40 mg 05/28/25 09:00 05/29/25 08:49 Pantoprazole 40 Mg Tablet PO 40 mg BID MARIO Administration Potassium Chloride 20 meq 05/28/25 05:45 05/29/25 08:49 Potassium Chloride 20 Meq Er Tablet PO 20 meq BID MARIO Administration Fluticasone/Salmeterol 2 puff 05/28/25 08:00 05/29/25 07:50 Fluticasone/Salmeterol 115-21 Mcg Inhaler 1 Puff INHALATION 2 puff Q12HRT MARIO Administration Trazodone HCl 300 mg 05/28/25 01:50 05/28/25 20:33 Trazodone Hcl 50 Mg Tablet PO 300 mg HS MARIO Administration Labs Labs: Laboratory Results - last 24 hr 05/28/25 05/29/25 18:23 04:33 WBC 7.6 RBC 3.79 L Hgb 7.5 L Hct 27.9 L MCV 73.6 L D MCH 19.8 L MCHC 26.9 L RDW 18.3 H Plt Count 464 H MPV 9.3 Immature Gran % (Auto) 0.4 Neut % (Auto) 46.9 Lymph % (Auto) 39.5 [place] % (Auto) 8.2 Eos % (Auto) 3.8 Baso % (Auto) 1.2 Lymph # (Auto) 3.00 [place] # (Auto) 0.6 Eos # (Auto) 0.3 Baso # (Auto) 0.1 Abs Immat Gran (auto) 0.03 Absolute Neuts (auto) 3.6 Absolute Nucleated RBC 0.000 Band Neutrophils % Not Reportable Nucleated RBC % 0.0 Platelet Estimate Adequate Hypochromasia 2+ Anisocytosis 2+ Ovalocytes 1+ Schistocytes Occasional Sodium 136 L Potassium 3.8 4.4 Chloride 108 H Carbon Dioxide 26 Anion Gap 2 L BUN 5 L Creatinine 0.61 L Estim Creat Clear Calc 85 Estimated GFR > 60 Glucose 88 Calcium 8.2 L Magnesium 1.9 1.7 Quality VTE Prophylaxis VTE prophylaxis: mechanical ordered
[2025-05-29] MEDS: MECLIZINE HCL 12.5 MG TABLET PO ×2 (10:59→20:55)
[2025-05-30] VITALS (9 sets, daily range): BP systolic 108–124; BP diastolic 50–59; PULSE 63–80; RESP 16–18; TEMP 36.4–36.6; O2SAT 98–99
[2025-05-30 05:54] LABS: Hematocrit 29.3 % (37.0-47.0); Hemoglobin 7.9 g/dL (12.0-15.0); Immature Granulocyte Percent A 0.3 % (0-0.5); Lymphocytes Absolute Auto 2.49 K/mm3 (0.9-3.2); Mean Corpuscular HGB Conc 27.0 g/dl (32-36); Mean Corpuscular Hemoglobin 19.9 pg (26-34); Mean Corpuscular Volume 73.8 fl (80-100); Nucleated Red Blood Cells Absolute Auto 0.000 K/mm3 (0.0-0.012); Nucleated Red Blood Cells Perc 0.0 % (0.0-0.2); Platelet Count Result 476 k/mm3 (150-375); Red Blood Count 3.97 M/mm3 (4.2-5.4); White Blood Count 7.5 K/mm3 (4.5-10.0)
[2025-05-30 06:25] LABS: Anion Gap 2 mmol/L (4-12); Blood Urea Nitrogen 8 mg/dL (7-17); Calcium 9.4 mg/dL (8.4-10.2); Carbon Dioxide 25 mmol/L (22-30); Chloride 106 mmol/L (98-107); Estimated CRCL calculation 78 ml/min; Estimated Glomerular Filt Rate > 60; Glucose 93 mg/dL (65-110); Magnesium 1.4 mg/dL (1.6-2.3); Potassium 5.0 mmol/L (3.4-5.0); Sodium 133 mmol/L (137-145)
[2025-05-30 07:00] LABS: Burr Cells 1+; Hypochromasia 1+; Microcytosis 1+ (NORMAL); Ovalocytes 1+; Schistocytes None Seen
[2025-05-30] MEDS: ONDANSETRON INJ 4 MG/2 ML VIAL IV PUSH ×2 (07:41→12:09)
[2025-05-30] MEDS: FLUTICASONE/SALMETEROL 115-21 MCG INHALER 1 PUFF 2 PUFF INHALATION (07:47)
[2025-05-30] MEDS: DULoxetine HCL 60 MG CAPSULE.DR PO (08:23)
[2025-05-30] MEDS: ATORVASTATIN 20 MG TABLET PO (08:23)
[2025-05-30] MEDS: PANTOPRAZOLE 40 MG TABLET PO (08:23)
[2025-05-30] MEDS: MAGNESIUM OXIDE 400 MG TABLET PO (08:24)
[2025-05-30] MEDS: LOSARTAN POTASSIUM 100 MG TABLET PO (08:24)
[2025-05-30] MEDS: ASPIRIN 81 MG CHEWABLE TABLET PO (08:24)
[2025-05-30] MEDS: POTASSIUM CHLORIDE 20 MEQ ER TABLET PO (08:25)
[2025-05-30] MEDS: NAPROXEN SODIUM 220 MG TABLET PO (08:34)
--- NOTE | 2025-05-30 11:48 | P.DS_ITS ---
DS: Admitting Diagnosis Discharge Date 05/30/2025 Admitting Diagnosis hypomagnesia and hypokalemia DS: Discharge Diagnosis Discharge Diagnosis (1) Hypomagnesemia: Code(s): E83.42 - Hypomagnesemia Status: Acute Assessment and Plan: -initially her magnesium was 0.2. She was supplemented in the emergency room and now she is 1.7. Another Mag 2g IV has been ordered to get her magnesium above 2, this will be her third dose of 2g since the ED. -daily labs -the patient was ordered p.o. magnesium outpatient and patient stated that she has been taking this medication however they make her feel ill and upset her stomach. -Level 1.7 today, continue home on p.o. magnesium and recheck labs in the AM --Denies N/V/D today (2) Hypokalemia: Code(s): E87.6 - Hypokalemia Status: Acute Assessment and Plan: -patient's potassium was 3.1 with repeat potassium of the same 3.1 even after she was supplemented with 40meq PO in the ED. -continue with home p.o. potassium -the patient was given 40meq IV upon admission, will continue to monitor -Continue home on p.o. potassium and recheck labs in the AM --Denies N/V/D today (3) COPD (chronic obstructive pulmonary disease): Code(s): J44.9 - Chronic obstructive pulmonary disease, unspecified Status: Chronic Assessment and Plan: -continue with albuterol sulfate -1/2-1 ppd smoker (4) Anemia: Code(s): D64.9 - Anemia, unspecified Status: Acute Assessment and Plan: -the patient is above her baseline. Continue to monitor daily. The patient is no longer taking her ferrous sulfate. Her H&H is 7.5 today, will continue to trend. (5) Hypertension: Qualifiers: Hypertension type: primary hypertension Qualified Code(s): I10 - Essential (primary) hypertension Code(s): I10 - Essential (primary) hypertension Status: Chronic Assessment and Plan: -continue with nifedipine, losartan, and Coreg if blood pressure allows. Current blood pressure is 138/58 (6) Depression: Code(s): F32.9 - Major depressive disorder, single episode, unspecified Status: Acute Assessment and Plan: -continue with Cymbalta and trazodone (7) Anxiety: Code(s): F41.9 - Anxiety disorder, unspecified Status: Acute Assessment and Plan: -continue Cymbalta and trazodone. (8) Vertigo: Code(s): R42 - Dizziness and giddiness Status: Acute Assessment and Plan: Intermittent but new today when turns head to the right -Meclizine PRN -Trend hgb Plan Pt to discharge home today with prompt PCP f/u with repeat labs. She also needs to continue to go to her iron infusion appts. DS: Summary Hospital Course Reason for hospitalization: hypomagnesia and hypokalemia Hospital Course: The patient is a 54-year-old female with a history of COPD, hypertension, chronic anemia, recurrent hypomagnesemia, and hypokalemia who presented to the emergency department with complaints of generalized weakness, malaise, and nausea, which she attributed to a possible reaction to her medications. Initial evaluation revealed severe hypomagnesemia (Mg 0.2 mg/dL) and mild hypokalemia (K 3.1 mmol/L), with stable vital signs and no acute cardiopulmonary distress. EKG demonstrated sinus rhythm with nonspecific ST-T wave changes, unchanged from prior studies. She was treated in the emergency department with IV magnesium and potassium supplementation and admitted for observation with telemetry monitoring due to the severity of electrolyte derangements and risk for arrhythmia. During hospitalization, she received multiple doses of IV magnesium with gradual improvement of magnesium levels, as well as additional potassium rm pplementation. Her potassium normalized prior to discharge, while magnesium improved but remained mildly low and stable on oral replacement. She denied ongoing nausea, vomiting, or diarrhea and tolerated oral supplementation without difficulty. Her anemia was monitored and remained near her chronic baseline, with plans to continue outpatient iron therapy and hematology follow-up. COPD and hypertension remained stable on home medications without exacerbation. By the day of discharge, the patient was clinically improved, hemodynamically stable, and back to her baseline functional status. She was discharged home in stable condition with instructions to continue oral magnesium and potassium supplementation, obtain repeat labs within one week, and follow up closely with her primary care provider and hematology. Status at Discharge Overall status at discharge: patient is back to baseline Time Spent with Patient Time attestation: Total time spent providing and/or coordinating discharge services: Time spent: Greater than 30 minutes Exam Narrative: Smells of tobacco smoke, appears older than stated age Const: General: comfortable, no acute distress and average body habitus Nutritional Appearance: average body habitus Orientation/consciousness: patient oriented x3 HENMT: Mouth: Yes moist mucous membranes Eyes: General: appearance normal, both eyes and all related structures Sclera: sclerae normal Neck: Neck: full ROM and supple Resp: Effort & Inspection: normal respiratory effort Auscultation: diminished lung sounds (throughout) Cardio: Rate: regular rate Rhythm: regular rhythm GI: Inspection: non-distended Auscultation: normal bowel sounds : General: Yes bladder normal to palpation Bimanual exam- vagina & uterus: bladder normal to palpation Skin: General skin exam: normal color and no rashes or lesions noted Neuro: General: patient oriented x3 Extrem: General: normal to inspection Psych: Appearance: grossly normal Mental Status: mental status grossly normal DS: Data Data Completed and Pending Completed studies during hospitalization: Labs, urine, imaging Labs on day of discharge: Labs from last 24 hours 05/30/25 05:24 WBC 7.5 RBC 3.97 L Hgb 7.9 L Hct 29.3 L MCV 73.8 L MCH 19.9 L MCHC 27.0 L RDW 18.5 H Plt Count 476 H MPV 9.8 Immature Gran % (Auto) 0.3 Neut % (Auto) 52.6 Lymph % (Auto) 33.3 [place] % (Auto) 8.0 Eos % (Auto) 4.6 H Baso % (Auto) 1.2 Lymph # (Auto) 2.49 [place] # (Auto) 0.6 Eos # (Auto) 0.3 Baso # (Auto) 0.1 Abs Immat Gran (auto) 0.02 Absolute Neuts (auto) 3.9 Absolute Nucleated RBC 0.000 Band Neutrophils % Not Reportable Nucleated RBC % 0.0 Platelet Estimate Increased Hypochromasia 1+ Microcytosis 1+ Ovalocytes 1+ [place] Cells 1+ Schistocytes None seen Sodium 133 L Potassium 5.0 Chloride 106 Carbon Dioxide 25 Anion Gap 2 L BUN 8 Creatinine 0.67 L Estim Creat Clear Calc 78 Estimated GFR > 60 Glucose 93 Calcium 9.4 Magnesium 1.4 L Discharge Plan Discharge Attending physician on discharge: Gopi Sanches Consulting providers: Tiffany Benson Discharging Clinician: Tiffany Benson Anticipated Discharge Date/Time: 05/30/25 14:00 Patient Disposition: Home Activity: as tolerated Diet: heart healthy Discharge Instructions: You were admitted for?low magnesium (hypomagnesemia) and low potassium (hypokalemia). This is your?second recent admission?for these issues. Your electrolyte levels were stabilized with?IV magnesium and potassium, then transitioned back to your?home oral supplementation, which you tolerated well. Your levels were stable at the time of discharge. Medications * Continue?all home oral magnesium and potassium supplements?exactly as prescribed. Continue to try and take your iron supplementation pills as well. * Do?not?stop or change doses without medical guidance. Follow-Up Appointments * Primary Care / Outpatient Provider:?Schedule follow-up within?1 week?for repeat labs (magnesium and potassium) and medication review. * Hematology:?Follow up with your?child and family services specialist?as scheduled for?ongoing iron infusions. Diet and Hydration * Maintain good hydration. * Follow any dietary recommendations provided to support electrolyte balance. When to Seek Medical Care Seek care urgently or return to the emergency department if you develop: * Muscle cramps, weakness, or twitching * Palpitations or chest discomfort * Dizziness, fainting, or confusion * Persistent nausea, vomiting, or diarrhea * Any new or worsening symptoms Additional Instructions * Keep all follow-up appointments and lab checks. * Bring an updated medication list to all visits. Avoid smoking and all tobacco products. Quitting will improve healing, lung function, and overall health. If cravings occur, consider nicotine replacement or other cessation aids, and follow up with your primary care provider for ad ditional support and resources. Patient Instructions: Hypokalemia (GEN), Hypomagnesemia (GEN) Patient Language: Green[place]ic Stand Alone Forms: General Discharge Information Follow-up/Referrals: Clare,Mansoor Talbot MD [Primary Care Provider] - 2 Weeks Discharge Medications: Continued carvedilol 25 mg tablet 25 mg PO Q12H nifedipine 30 mg tablet extended release 30 mg PO DAILY ferrous sulfate 325 mg (65 mg iron) Tablet,Delayed Release (Dr/Ec) 325 mg PO BID@1200,1700 Qty: 60 0RF ondansetron 4 mg tablet,disintegrating 4 mg PO Q8H PRN (Reason: nausea and vomiting) Qty: 30 0RF atorvastatin 20 mg tablet 20 mg PO DAILY albuterol sulfate 2.5 mg /3 mL (0.083 %) solution for nebulization 2.5 mg inhalation TID PRN (Reason: Shortness Of Breath) omeprazole 40 mg capsule,delayed release(DR/EC) 40 mg PO BID trazodone 300 mg tablet 300 mg PO HS losartan 100 mg tablet 100 mg PO DAILY duloxetine 60 mg capsule,delayed release(DR/EC) 60 mg PO DAILY aspirin [Children's Aspirin] 81 mg Tablet,Chewable 81 mg PO DAILY@0800 30 Days Qty: 30 0RF fluticasone propion-salmeterol [Advair HFA] 115-21 mcg/actuation Hfa Aerosol Inhaler 2 puff inhalation Q12HRT 30 Days Qty: 12 0RF magnesium oxide 500 mg magnesium tablet 500 mg PO BID Qty: 14 0RF potassium chloride [K-Tab] 20 mEq tablet extended release 20 meq PO BID Qty: 14 0RF nystatin 100,000 unit/gram powder 1 applic topical TID Qty: 15 0RF Patient Comments: apply under breasts Other Ambulatory Orders: Basic Metabolic Panel (Routine) Timeframe: 1 Week Location: Determined by Patient Ordered By: Tiffany Benson Magnesium (Routine) Timeframe: 1 Week Location: Determined by Patient Ordered By: Tiffany Benson Date of admission: 05/27/25 20:45 Primary Care Provider: Clare,Mansoor Talbot Admitting Provider: Gopi Sanches Attending physician on admission: Gopi Sanches Condition: Stable Quality VTE Prophylaxis VTE prophylaxis: mechanical ordered Hospitalist MIPS Heart Failure (Exclusion) Patient has history of Heart Transplant or Left Ventricular Assistive Device?: No IF YES, STOP HERE Heart Failure (Qualifier) Patient has current or prior documentation of LVEF less than or equal to 40%, or mod/servere depressed LVSF?: No IF NO, STOP HERE
== END 2025-05-30 14:08 | disposition home or self-care (01) ==
LOC: ANHED 20:49 → ANH3MEDSUR 21:37 → ANH2MED 22:39
PROVIDERS: Nurse Practitioner; Admitting Provider Internal Medicine; Emergency Provider Student in an Organized Health Care Education/Training Program; PCP Family Medicine; Visit Provider Internal Medicine
DX: E83.42 Hypomagnesemia (principal); E87.6 Hypokalemia; D64.9 Anemia, unspecified; R42 Dizziness and giddiness; M25.532 Pain in left wrist; W19.XXXA Unspecified fall, initial encounter; I10 Essential (primary) hypertension; J44.9 Chronic obstructive pulmonary disease, unspecified; H91.91 Unspecified hearing loss, right ear; M81.0 Age-related osteoporosis without current pathological fracture; K21.9 Gastro-esophageal reflux disease without esophagitis; F17.210 Nicotine dependence, cigarettes, uncomplicated; Z79.82 Long term (current) use of aspirin; F32.9 Major depressive disorder, single episode, unspecified; F41.9 Anxiety disorder, unspecified; E78.5 Hyperlipidemia, unspecified
CPT/HCPCS: 36415; 73100; 80048; 80053; 83735; 84132; 85025; 93005; 94640; 96361; 96365; 96366; 96374; 96375; 96376; 99285; A9270; G0378; G0379; J2405; J3475; J3480; J7040; J7120